=== PATIENT | female | born 1935 | race Caucasian/White ===

== ENCOUNTER 2017-11-25 02:40 | Inpatient (IN) | payer MEDICARE, OTHER ==
[~2017-11-25] VITALS: Ht 167.6 cm; Wt 45.0 kg
[2017-11-25] VITALS (9 sets, daily range): BP systolic 95–210; BP diastolic 51–93; PULSE 62–99; RESP 16–20; TEMP 96.4–98.4; O2SAT 90–97
--- NOTE | 2017-11-25 03:08 | PD ---
HPI Chief Complaint: Fall Time Seen by Provider: 02:45 Travel History International Travel<30 days: No Contact w/Intl Traveler<30days: No Traveled to known affect area: No History of Present Illness HPI Patient from halfway where she apparently fell earlier today they did an x- ray and there was a questionable linear fracture through the femoral neck . Decision was made by Dr holland. family to keep her at the halfway and only to send her to the ER if she was in pain. At night they got her up to go to the bathroom and she had severe pain . Patient comes in the ER with a reading of an x-ray the says most likely right femoral neck fracture .. patient is nonverbal oriented only to place responds only yes or no answers. PFSH Past Medical History Cardiovascular Problems: Yes Respiratory: Yes ?: Not Social History Alcohol Use: No Tobacco Use: No Allergies-Medications (Allergen,Severity, Reaction): Coded Allergies: amoxicillin (Verified Allergy, Unknown, 11/25/17) cefuroxime (Verified Allergy, Unknown, 11/25/17) cilostazol (Verified Allergy, Unknown, 11/25/17) clavulanic acid (Verified Allergy, Unknown, 11/25/17) lisinopril (Verified Allergy, Unknown, 11/25/17) Reported Meds & Prescriptions Reported Meds & Active Scripts Active Hydrocodone-Acetamin 5-325 mg (Hydrocodone/Acetaminophen) 5 Mg-325 Mg Tablet 1 Tab PO Q4H PRN Xarelto (Rivaroxaban) 10 Mg Tab 10 Mg PO Q24H Reported Polyethylene Glycol 3350 Powder (Polyethylene Glycol) 17 Gram Pow 17 Gm PO BID Flovent Hfa 12 GM Inh (Fluticasone Propionate) 110 Mcg/Act Inh 2 Puff INH BID Duoneb (Ipratropium-Albuterol Neb) 0.5-2.5 Mg/3 Ml Neb 1 Nebule INH BID Combivent Respimat Inh (Ipratropium-Albuterol Inh) 20-100 Retirement/Act Aero 2 Puff INH BID Verapamil ER 24 HR (Verapamil HCl) 240 Mg Tab 120 Mg PO HS Thera-M (Multiple Vitamins W/ Minerals) 1 Tab 1 Tab PO DAILT Simvastatin 20 Mg Tab 20 Mg PO DAILY [imdurER] 30 Mg PO DAILY [fortified ice cream] 1 Container PO DAILY Folic Acid 0.8 Mg Tab 800 Mcg PO DAILY Feosol (Ferrous Sulfate) 325 Mg (65 Mg Iron) Tab 1 Tab PO DAILY Aspirin EC (Aspirin) 81 Mg Tabdr 81 Mg PO DAILY Digoxin 0.125 Mg Tab 0.125 Mg PO DAILY Amitriptyline (Amitriptyline HCl) 50 Mg Tab 50 Mg PO HS Review of Systems ROS Limitations: Other: (DEMENTIA) Except as stated in HPI: all other systems reviewed are Neg Physical Exam Narrative GENERAL: Patient's vital signs within normal limits she seems demented but nontoxic in no apparent distress SKIN: Warm and dry. HEAD: Atraumatic. Normocephalic. EYES: Pupils equal and round. No scleral icterus. No injection or drainage. ENT: No nasal bleeding or discharge. Mucous membranes pink and moist. NECK: Trachea midline. No JVD. CARDIOVASCULAR: Regular rate and rhythm. RESPIRATORY: No accessory muscle use. Clear to auscultation. Breath sounds equal bilaterally. GASTROINTESTINAL: Abdomen suprapubic areas distended Kulkarni is placed and 800 cc of clear urine come out. non-tender. Hepatic and splenic margins not palpable. MUSCULOSKELETAL: Extremities pAIN WITH INTERNAL ROTATION OF THE FEMORAL HEAD .No obvious deformities. NEUROLOGICAL: Oriented to person only no obvious focal deficits Data Data Last Documented VS Vital Signs Date Time Temp Pulse Resp B/P (MAP) Pulse Ox O2 Delivery O2 Flow Rate FiO2 11/25/17 02:58 69 17 149/70 (96) 95 Room Air 11/25/17 02:46 98.4 Orders Orders Electrocardiogram (11/25/17 02:53) Complete Blood Count With Diff (11/25/17 02:53) Comprehensive Metabolic Panel (11/25/17 02:53) Troponin I (11/25/17 02:53) Lipase (11/25/17 02:53) Ua Includes Microscopic (11/25/17 02:53) Urinary Catheter Management SIVAKUMAR.Q8H (11/25/17 02:55) Chest, Single Ap (11/25/17 ) Hip, Uni(Ap&Lat) W Ap Pelvis (11/25/17 ) Admit To Inpatient (11/25/17 ) Vital Signs (Adult) Q4H (11/25/17 03:54) Activity Bed Rest (11/25/17 03:54) Channel Business Manager / Telemetry .CONTINUOUS (11/25/17 03:54) Diet Npo (11/25/17 Breakfast) Sodium Chloride 0.9% Flush (Ns Flush) (11/25/17 04:00) Sodium Chloride 0.9% Flush (Ns Flush) (11/25/17 09:00) Basic Metabolic Panel (Bmp) (11/26/17 06:00) Complete Blood Count With Diff (11/26/17 06:00) Pt Request For Service (11/25/17 03:54) Case Management Consult (11/25/17 03:54) Naloxone Inj (Narcan Inj) (11/25/17 04:00) Inpatient Certification (11/25/17 ) Consult Orthopedic (11/25/17 ) Admit Order (Ed Use Only) (11/25/17 03:59) Labs Laboratory Tests Test 11/25/17 03:00 White Blood Count 10.5 TH/MM3 Red Blood Count 3.79 MIL/MM3 Hemoglobin 12.0 GM/DL Hematocrit 34.8 % Mean Corpuscular Volume 91.6 FL Mean Corpuscular Hemoglobin 31.5 PG Mean Corpuscular Hemoglobin Concent 34.4 % Red Cell Distribution Width 14.3 % Platelet Count 154 TH/MM3 Mean Platelet Volume 8.8 FL Neutrophils (%) (Auto) 83.3 % Lymphocytes (%) (Auto) 8.9 % Monocytes (%) (Auto) 7.3 % Eosinophils (%) (Auto) 0.2 % Basophils (%) (Auto) 0.3 % Neutrophils # (Auto) 8.7 TH/MM3 Lymphocytes # (Auto) 0.9 TH/MM3 Monocytes # (Auto) 0.8 TH/MM3 Eosinophils # (Auto) 0.0 TH/MM3 Basophils # (Auto) 0.0 TH/MM3 CBC Comment DIFF FINAL Differential Comment Urine Color LIGHT-YELLOW Urine Turbidity CLEAR Urine pH 7.5 Urine Specific [place] 1.009 Urine Protein NEG mg/dL Urine Glucose (UA) NEG mg/dL Urine Ketones NEG mg/dL Urine Occult Blood NEG Urine Nitrite NEG Urine Bilirubin NEG Urine Urobilinogen LESS THAN 2.0 MG/DL Urine Leukocyte Esterase SMALL Urine WBC 2 /hpf Urine Squamous Epithelial Cells 6 /hpf Microscopic Urinalysis Comment CULT NOT INDICATED Blood Urea Nitrogen 19 MG/DL Creatinine 0.67 MG/DL Random Glucose 90 MG/DL Total Protein 6.4 GM/DL Albumin 3.0 GM/DL Calcium Level 8.1 MG/DL Alkaline Phosphatase 66 U/L Aspartate Amino Transf (AST/SGOT) 22 U/L Alanine Aminotransferase (ALT/SGPT) 46 U/L Total Bilirubin 0.6 MG/DL Sodium Level 137 MEQ/L Potassium Level 3.8 MEQ/L Chloride Level 102 MEQ/L Carbon Dioxide Level 29.3 MEQ/L Anion Gap 6 MEQ/L Estimat Glomerular Filtration Rate 84 ML/MIN Troponin I 0.03 NG/ML Lipase 171 U/L MDM Medical Decision Making Medical Screen Exam Complete: Yes Emergency Medical Condition: Yes Differential Diagnosis Hip contusion versus hip fracture versus osteoporosis versus pathological fracture versus pelvic fracture versus Rami fracture Narrative Course X-ray shows a nondisplaced femoral neck fracture right sided. She will be admitted to medicine, orthopedics to follow in morning for possible pinning Diagnosis Primary Impression: Closed right hip fracture Scripts Hydrocodone/Acetaminophen (Hydrocodone-Acetamin 5-325 mg) 5 Mg-325 Mg Tablet 1 TAB PO Q4H Y for PAIN, #40 TAB Prov: Nelson Carlson MD 11/25/17 Rivaroxaban (Xarelto) 10 Mg Tab 10 MG PO Q24H for Prevent Blood Clot, #25 TAB Prov: Nelson Carlson MD 11/25/17 Tom James MD Nov 25, 2017 03:08
[2017-11-25 03:10] LABS: AUTOMATED NEUTROPHIL # 8.7 TH/MM3 (1.8-7.7); BASOPHIL % 0.3 % (0.0-2.0); EOSINOPHIL % 0.2 % (0.0-4.0); HEMATOCRIT 34.8 % (35.0-46.0); LYMPH % 8.9 % (9.0-44.0); LYMPHOCYTE # 0.9 TH/MM3 (1.0-4.8); MEAN CELL VOLUME 91.6 FL (80.0-100.0); MEAN CORPUSCULAR HEMOGLOBIN 31.5 PG (27.0-34.0); MEAN CORPUSCULAR HGB CONC 34.4 % (32.0-36.0); MEAN PLATELET VOLUME 8.8 FL (7.0-11.0); MONO % 7.3 % (0.0-8.0); MONOCYTE # 0.8 TH/MM3 (0-0.9); NEUT % 83.3 % (16.0-70.0); PLATELET COUNT 154 TH/MM3 (150-450); RED BLOOD COUNT 3.79 MIL/MM3 (4.00-5.30); RED CELL DISTRIBUTION WIDTH 14.3 % (11.6-17.2); WHITE BLOOD COUNT 10.5 TH/MM3 (4.0-11.0)
[2017-11-25 03:18] LABS: BILIRUBIN, URINE NEG (NEG); BLOOD, URINE NEG (NEG); GLUCOSE,URINE NEG (NEG); KETONE, URINE NEG (NEG); NITRITE,URINE NEG (NEG); PH, URINE 7.5 (5.0-8.5); SQUAMOUS EPITHELIAL CELL URINE 6 /hpf (0-5); URINE COLOR LIGHT-YELLOW (YELLW/STRAW); URINE LEUKOCYTE ESTERASE SMALL (NEG)
--- NOTE | 2017-11-25 03:28 | RADRPT ---
EXAM DATE/TIME: 11/25/2017 03:06 [facility] COMPARISON: No previous studies available for comparison. INDICATIONS : Short of breath post fall. MEDICAL HISTORY : None. SURGICAL HISTORY : None. ENCOUNTER: Initial ACUITY: 1 day PAIN SCORE: Non-responsive. LOCATION: Bilateral chest FINDINGS: Cardiomegaly and aortic calcification. Degenerative changes of the spine. Lungs are clear with hyperi nflation. CONCLUSION: No acute disease. Hernandez Bryson MD on November 25, 2017 at 3:26 Board Certified Radiologist. This report was verified electronically.
--- NOTE | 2017-11-25 03:33 | RADRPT ---
EXAM DATE/TIME: 11/25/2017 03:06 [facility] COMPARISON: No previous studies available for comparison. INDICATIONS : Right hip pain post fall. MEDICAL HISTORY : None. SURGICAL HISTORY : None. ENCOUNTER: Initial ACUITY: 1 day PAIN SCORE: 10/10 LOCATION: Right hip. FINDINGS: Femoral artery and iliac artery calcifications are noted as well as atherosclerotic calcification of the distal aorta. Numerous surgical clips overlie the pelvis and left lower quadrant. There is a mild ly displaced fracture of the subcapital femoral neck on the right. Examination of the right hip was performed with AP Pelvis. The primary and secondary trabecular karen rolando of the femoral neck is intact. The hip joint is of normal width without significant sclerosis or bony hypertrophy. The acetabulum is grossly intact. CONCLUSION: Right femoral neck fracture. Hernandez Bryson MD on November 25, 2017 at 3:31 Board Certified Radiologist. This report was verified electronically.
[2017-11-25 04:00] LABS: ALT (GPT) 46 U/L (10-53); AST (GOT) 22 U/L (15-37); BICARBONATE 29.3 MEQ/L (21.0-32.0); BLOOD UREA NITROGEN 19 MG/DL (7-18); CALCIUM 8.1 MG/DL (8.5-10.1); CHLORIDE 102 MEQ/L (98-107); CREATININE 0.67 MG/DL (0.50-1.00); GLOMERULAR FILTRATION RATE 84 ML/MIN (>89); GLUCOSE,RANDOM 90 MG/DL (74-106); SODIUM (NA) 137 MEQ/L (136-145)
[2017-11-25] MEDS ORDERED: SODIUM CHLORIDE 0.9% FLUSH 10 ML FLUSH IV FLUSH PRN (04:00)
[2017-11-25] MEDS ORDERED: NALOXONE HCL 0.4 MG/ML AMP IV PUSH PRN (04:00)
[2017-11-25 04:04] LABS: ALKALINE PHOSPHATASE 66 U/L (45-117); TOTAL BILIRUBIN ADULT 0.6 MG/DL (0.2-1.0); TOTAL PROTEIN 6.4 GM/DL (6.4-8.2); TROPONIN I 0.03 NG/ML (0.02-0.05)
[2017-11-25] MEDS ORDERED: FERR200T PO (04:20)
[2017-11-25] MEDS ORDERED: IPRAAER INH (04:20)
[2017-11-25] MEDS ORDERED: FLUTI110I INH (04:20)
[2017-11-25] MEDS ORDERED: IPRASOL INH (04:20)
[2017-11-25] MEDS ORDERED: DIGO0.12 PO (04:20)
[2017-11-25] MEDS ORDERED: THERTAB17 PO (04:20)
[2017-11-25] MEDS ORDERED: VERA1TAB17 PO (04:20)
[2017-11-25] MEDS ORDERED: [UNRECOGNIZED DRUG - OTHER] PO (04:20)
[2017-11-25] MEDS ORDERED: AMIT50TA3 PO (04:20)
[2017-11-25] MEDS ORDERED: ASPI81TA23 PO (04:20)
[2017-11-25] MEDS ORDERED: SIMV20TA PO (04:20)
[2017-11-25] MEDS ORDERED: POLY17S PO (04:20)
[2017-11-25] MEDS ORDERED: [UNRECOGNIZED DRUG - OTHER] PO (04:20)
[2017-11-25] MEDS ORDERED: FOLI800T PO (04:20)
[2017-11-25] MEDS ORDERED: MORPHINE SULFATE 2 MG/ML INJ IV PUSH PRN (05:30)
[2017-11-25] MEDS ORDERED: RESP: ALBUTEROL 2.5 MG/IPRATROPIUM 0.5 MG NEB (PRN) NEB (05:30)
--- NOTE | 2017-11-25 05:31 | HHI.HP ---
[facility] Unknown Admission Diagnosis hip fracture Diagnoses: Chief Complaint: right hip pain Travel History International Travel<30 Days: No Contact w/Intl Traveler <30 Da: No Traveled to Known Affected Are: No History of Present Illness 82 y/o female with a history of dementia, htn, hld, irregular heart beat, and copd was brought in from her nursing facility after having a fall. Patient is a poor historian and only oriented to self. She does not remember falling but is able to tell me she is in pain and states her right hip. She can not tell me the pain scale or any other details regarding the pain. She does deny any chest pain, sob, or head ache. She does not know if she hit her head when she fell. She is a DNR, yellow form on chart Review of Systems Except as stated in HPI: all other systems reviewed are Neg Past Family Social History Past Medical History HTN HLD Iron deficiency anemia depression COPD Irregular heart beat Past Surgical History Patient is unable to provide surgical history Reported Medications Reported Meds & Active Scripts Active Reported Polyethylene Glycol 3350 Powder (Polyethylene Glycol) 17 Gram Pow 17 Gm PO BID Flovent Hfa 12 GM Inh (Fluticasone Propionate) 110 Mcg/Act Inh 2 Puff INH BID Duoneb (Ipratropium-Albuterol Neb) 0.5-2.5 Mg/3 Ml Neb 1 Nebule INH BID Combivent Respimat Inh (Ipratropium-Albuterol Inh) 20-100 Longterm/Act Aero 2 Puff INH BID Verapamil ER 24 HR (Verapamil HCl) 240 Mg Tab 120 Mg PO HS Thera-M (Multiple Vitamins W/ Minerals) 1 Tab 1 Tab PO DAILT Simvastatin 20 Mg Tab 20 Mg PO DAILY [imdurER] 30 Mg PO DAILY [fortified ice cream] 1 Container PO DAILY Folic Acid 0.8 Mg Tab 800 Mcg PO DAILY Feosol (Ferrous Sulfate) 325 Mg (65 Mg Iron) Tab 1 Tab PO DAILY Aspirin EC (Aspirin) 81 Mg Tabdr 81 Mg PO DAILY Digoxin 0.125 Mg Tab 0.125 Mg PO DAILY Amitriptyline (Amitriptyline HCl) 50 Mg Tab 50 Mg PO HS Allergies: Coded Allergies: amoxicillin (Verified Allergy, Unknown, 11/25/17) cefuroxime (Verified Allergy, Unknown, 11/25/17) cilostazol (Verified Allergy, Unknown, 11/25/17) clavulanic acid (Verified Allergy, Unknown, 11/25/17) lisinopril (Verified Allergy, Unknown, 11/25/17) Active Ordered Medications Current Medications Medications (Trade) Dose Ordered Sig/[place] Route Start Time Stop Time Status Last Admin (NS Flush) 2 ml UNSCH PRN IV FLUSH 11/25/17 04:00 (NS Flush) 2 ml BID IV FLUSH 11/25/17 09:00 (Narcan Inj) 0.4 mg UNSCH PRN IV PUSH 11/25/17 04:00 Family History patient is unable to provide surgical history Social History Patient denies any tobacco, alcohol or illicit drug use Physical Exam Vital Signs Vital Signs Date Time Temp Pulse Resp B/P (MAP) Pulse Ox O2 Delivery O2 Flow Rate FiO2 11/25/17 02:58 69 17 149/70 (96) 95 Room Air 11/25/17 02:52 16 94 Room Air 11/25/17 02:46 98.4 93 20 210/93 (132) 94 Physical Exam GENERAL: This is a well-nourished, well-developed patient, in no apparent distress. SKIN: No rashes, ecchymoses or lesions. Cool and dry. HEAD: Atraumatic. Normocephalic. EYES: Pupils equal round and reactive. Extraocular motions intact. ENT: Nose without bleeding, purulent drainage or septal hematoma. Airway patent. NECK: Trachea midline. No JVD or lymphadenopathy. Supple, nontender, no meningeal signs. CARDIOVASCULAR: Regular rate and rhythm without murmurs, gallops, or rubs. RESPIRATORY: Diminished bases. No wheezes, rales, or rhonchi. GASTROINTESTINAL: Abdomen soft, non-tender, nondistended. MUSCULOSKELETAL: Extremities without clubbing, cyanosis, or edema. Right hip tenderness. No calf tenderness. NEUROLOGICAL: Awake and alert x 1. Motor and sensory grossly within normal limits. Normal speech. Laboratory Laboratory Tests Test 11/25/17 03:00 White Blood Count 10.5 Red Blood Count 3.79 Hemoglobin 12.0 Hematocrit 34.8 Mean Corpuscular Volume 91.6 Mean Corpuscular Hemoglobin 31.5 Mean Corpuscular Hemoglobin Concent 34.4 Red Cell Distribution Width 14.3 Platelet Count 154 Mean Platelet Volume 8.8 Neutrophils (%) (Auto) 83.3 Lymphocytes (%) (Auto) 8.9 Monocytes (%) (Auto) 7.3 Eosinophils (%) (Auto) 0.2 Basophils (%) (Auto) 0.3 Neutrophils # (Auto) 8.7 Lymphocytes # (Auto) 0.9 Monocytes # (Auto) 0.8 Eosinophils # (Auto) 0.0 Basophils # (Auto) 0.0 CBC Comment DIFF FINAL Differential Comment Urine Color LIGHT-YELLOW Urine Turbidity CLEAR Urine pH 7.5 Urine Specific [place] 1.009 Urine Protein NEG Urine Glucose (UA) NEG Urine Ketones NEG Urine Occult Blood NEG Urine Nitrite NEG Urine Bilirubin NEG Urine Urobilinogen LESS THAN 2.0 Urine Leukocyte Esterase SMALL Urine WBC 2 Urine Squamous Epithelial Cells 6 Microscopic Urinalysis Comment CULT NOT INDICATED Blood Urea Nitrogen 19 Creatinine 0.67 Random Glucose 90 Total Protein 6.4 Albumin 3.0 Calcium Level 8.1 Alkaline Phosphatase 66 Aspartate Amino Transf (AST/SGOT) 22 Alanine Aminotransferase (ALT/SGPT) 46 Total Bilirubin 0.6 Sodium Level 137 Potassium Level 3.8 Chloride Level 102 Carbon Dioxide Level 29.3 Anion Gap 6 Estimat Glomerular Filtration Rate 84 Troponin I 0.03 Lipase 171 Result Diagram: 11/25/17 0300 11/25/17 0300 Imaging Last Impressions Hip and Pelvis X-Ray 11/25/17 0000 Signed Impressions: Service Date/Time: November 03:06 - CONCLUSION: Right femoral neck fracture. Hernandez Bryson MD Chest X-Ray 11/25/17 0000 Signed Impressions: Service Date/Time: November 03:06 - CONCLUSION: No acute disease. Hernandez Bryson MD Caprini VTE Risk Assessment Scottrini VTE Risk Assessment: No/Low Risk (score <= 1) Caprini Risk Assessment Model Point Value = 1 Point Value = 2 Point Value = 3 Point Value = 5 Age 41-60 Minor surgery BMI > 25 kg/m2 Swollen legs Varicose veins or History of unexplained or recurrent spontaneous Oral contraceptives or hormone replacement Sepsis (< 1 month) Serious lung disease, including pneumonia (< 1 month) Abnormal pulmonary function Acute myocardial infarction Congestive heart failure (< 1 month) History of inflammatory bowel disease Medical patient at bed rest Age 61-74 Arthroscopic surgery Major open surgery (> 45 min) Laparoscopic surgery (> 45 min) Malignancy Confined to bed (> 72 hours) Immobilizing plaster cast Central venous access Age >= 75 History of VTE Family history of VTE Factor V Leiden Prothrombin 34140T Lupus anticoagulant Anticardiolipin antibodies Elevated serum homocysteine Heparin-induced thrombocytopenia Other congenital or acquired thrombophilia Stroke (< 1 month) Elective arthroplasty Hip, pelvis, or leg fracture Acute spinal cord injury (< 1 month) Prophylaxis Regimen Total Risk Factor Score Risk Level Prophylaxis Regimen 0-1 Low Early ambulation 2 Moderate Order ONE of the following: *Sequential Compression Device (SCD) *Heparin 5000 units SQ BID 3-4 Higher Order ONE of the following medications: *Heparin 5000 units SQ TID *Enoxaparin/Lovenox 40 mg SQ daily (WT < 150 kg, CrCl > 30 mL/min) *Enoxaparin/Lovenox 30 mg SQ daily (WT < 150 kg, CrCl > 10-29 mL/min) *Enoxaparin/Lovenox 30 mg SQ BID (WT < 150 kg, CrCl > 30 mL/min) AND/OR *Sequential Compression Device (SCD) 5 or more Highest Order ONE of the following medications: *Heparin 5000 units SQ TID (Preferred with Epidurals) *Enoxaparin/Lovenox 40 mg SQ daily (WT < 150 kg, CrCl > 30 mL/min) *Enoxaparin/Lovenox 30 mg SQ daily (WT < 150 kg, CrCl > 10-29 mL/min) *Enoxaparin/Lovenox 30 mg SQ BID (WT < 150 kg, CrCl > 30 mL/min) AND *Sequential Compression Device (SCD) Assessment and Plan Problem List: (1) Closed right hip fracture ICD Code: S72.001A - Fracture of unspecified part of neck of right femur, initial encounter for closed fracture Status: Acute (2) HTN (hypertension) ICD Code: I10 - Essential (primary) hypertension Status: Chronic (3) COPD (chronic obstructive pulmonary disease) ICD Code: J44.9 - Chronic obstructive pulmonary disease, unspecified Status: Chronic Assessment and Plan 82 y/o female with a history of dementia, depression, htn, hld, irregular heart beat, and copd was brought in from her nursing facility after having a fall. Right hip fracture, s/p fall Hip x ray reviewed and shows a right femoral neck fracture. -Consult orthopedics -Pain management with IV morphine -NPO -IVF for hydration HTN, chronic -Cont home medications, monitor vitals COPD, chronic -Duonebs brenton and prn -IS DVT prophylaxis: SCDs Code Status DNR Discussed Condition With Patient and RN Physician Certification 2 Midnight Certification Type: Admission for Inpatient Services Order for Inpatient Services The services are ordered in accordance with Medicare regulations or non- Medicare payer requirements, as applicable. In the case of services not specified as inpatient-only, they are appropriately provided as inpatient services in accordance with the 2-midnight benchmark. Estimated LOS (days): 2 days is the estimated time the patient will need to remain in the hospital, assuming treatment plan goals are met and no additional complications. Post-Hospital Plan: SNF Problem Qualifiers (1) Closed right hip fracture: Qualified Codes: S72.001A - Fracture of unspecified part of neck of right femur , initial encounter for closed fracture (2) HTN (hypertension): Qualified Codes: I10 - Essential (primary) hypertension (3) COPD (chronic obstructive pulmonary disease): Qualified Codes: J44.9 - Chronic obstructive pulmonary disease, unspecified Jess Bowles Nov 25, 2017 05:31
[2017-11-25] MEDS: SODIUM CHLOR 0.9% 1000 ML INJ 1,000 ML IV SCH (05:33)
[2017-11-25] MEDS: RESP: ALBUTEROL 2.5 MG/IPRATROPIUM 0.5 MG NEB (SCH) NEB ×3 (08:03→19:23)
[2017-11-25] MEDS: SODIUM CHLORIDE 0.9% FLUSH 10 ML FLUSH IV FLUSH SCH ×2 (09:00→21:00)
[2017-11-25] MEDS: DIGOXIN 0.125 MG TAB PO SCH (09:00)
[2017-11-25] MEDS: FERROUS SULFATE 325 MG (65 MG ELEMENTAL IRON) TAB PO SCH (09:00)
[2017-11-25] MEDS: PRAVASTATIN SOD 40 MG TAB PO SCH (09:00)
--- NOTE | 2017-11-25 09:20 | PD.ORT.PN ---
Subjective Subjective Remarks Seen in the emergency room. Right hip fracture Objective Vitals Vital Signs Date Time Temp Pulse Resp B/P (MAP) Pulse Ox O2 Delivery O2 Flow Rate FiO2 11/25/17 08:05 96 21 11/25/17 07:52 88 16 162/63 (96) 96 Room Air 11/25/17 05:15 98.4 79 18 158/74 (102) 97 Room Air 11/25/17 02:58 69 17 149/70 (96) 95 Room Air 11/25/17 02:52 16 94 Room Air 11/25/17 02:46 98.4 93 20 210/93 (132) 94 I/O 11/24/17 11/24/17 11/24/17 11/25/17 11/25/17 11/25/17 07:00 15:00 23:00 07:00 15:00 23:00 Output Total 1350 ml Balance -1350 ml Output Urine Total 1350 ml Result Diagram: 11/25/17 0300 11/25/17 0300 Imaging Last 24 hours Impressions Hip and Pelvis X-Ray 11/25/17 0000 Signed Impressions: Service Date/Time: November 03:06 - CONCLUSION: Right femoral neck fracture. Hernandez Bryson MD Chest X-Ray 11/25/17 0000 Signed Impressions: Service Date/Time: November 03:06 - CONCLUSION: No acute disease. Hernandez Bryson MD Assessment & Plan Assessment and Plan Right femoral neck fracture, displaced. PLAN: Open treatment right hip with bipolar hip replacement. Full consent with the patient. Coags pending. Surgery today Nelson Carlson MD Nov 25, 2017 09:20
[2017-11-25] MEDS ORDERED: hydrALAZINE HCL 10 MG TAB PO PRN (10:15)
[2017-11-25 11:33] LABS: PROTHROMBIN TIME - PATIENT 10.1 SEC (9.8-11.6)
[2017-11-25] MEDS ORDERED: ONDANSETRON HCL 4 MG/2 ML VIAL IV ONE (12:00)
[2017-11-25] MEDS ORDERED: PROPOFOL 200 MG/20 ML AMP IV ONE (12:00)
[2017-11-25] MEDS ORDERED: SODIUM CHLORIDE 0.9% 20 ML VIAL IV ONE (12:00)
[2017-11-25] MEDS ORDERED: LACTATED RINGER'S 1000 ML INJ 1,000 ML IV ONE (12:00)
[2017-11-25] MEDS ORDERED: LIDOCAINE HCL 1% PF 5 ML SYRINGE OTHER ONE (12:00)
[2017-11-25] MEDS ORDERED: GLYCOPYRROLATE 1 MG/5 ML SYRINGE IV PUSH ONE (12:00)
[2017-11-25] MEDS ORDERED: KETOROLAC TROMETHAMINE 30 MG/ML (IVP) VIAL IV PUSH ONE (12:00)
[2017-11-25] MEDS ORDERED: ePHEDrine/NS 25 MG/5 ML SYRINGE IV ONE (12:00)
[2017-11-25] MEDS ORDERED: PHENYLEPH/NS 1000 MCG/10 ML SYR IV ONE (12:00)
[2017-11-25] MEDS ORDERED: ROCURONIUM INJ 50 MG/5 ML SYRINGE IV PUSH ONE (12:00)
[2017-11-25] MEDS ORDERED: NEOSTIGMINE 5 MG/5 ML SYRINGE IV PUSH ONE (12:00)
[2017-11-25] MEDS ORDERED: GENTAMICIN SULFATE 80 MG/2 ML VIAL ONE (14:00)
[2017-11-25] MEDS ORDERED: ceFAZolin 2 GM PREMIX 50 ML ONE (14:26)
[2017-11-25] MEDS ORDERED: VANCOMYCIN HCL 1000 MG VIAL ONE (14:26)
[2017-11-25] MEDS ORDERED: CLINDAMYCIN PHOS 600 MG/4 ML VIAL ONE (14:33)
[2017-11-25] MEDS ORDERED: CHLORHEXIDINE GLUCONATE 2 % 1 PACK (2 CLOTHS) TOPICAL PRN (14:45)
[2017-11-25] MEDS ORDERED: METOPROLOL TARTRATE 25 MG TAB PO PRN (14:45)
[2017-11-25] MEDS ORDERED: LACTATED RINGER'S 1000 ML IV PRN (14:45)
[2017-11-25] MEDS ORDERED: SODIUM CHLORID 0.9% 500 ML IV PRN (14:45)
[2017-11-25] MEDS ORDERED: POVIDONE IODINE 5% (ANTISEPSIS KIT) 4 APPLICATIONS EACH NARE PRN (14:45)
--- NOTE | 2017-11-25 15:07 | EKG ---
Date Performed: 11/25/2017 Time Performed: 03:28:15 PTAGE: 82 years EKG: Sinus rhythm WITH SHORT DE INTERVAL PROBABLE INFERIOR MYOCARDIAL INFARCTION ABNORMAL ECG NO PREVIOUS TRACING Clinical correlation is recommended. DOCTOR: Francesco Mcdonald Interpretating Date/Time 11/25/2017 15:05:12
--- NOTE | 2017-11-25 15:43 | PD.CONS ---
HPI Service Orthopedic Surgeons Consult Requested By Dr. Saleem Reason for Consult Fracture of the right femoral neck, displaced Primary Care Physician Jabari Shi, DO Admission Diagnosis hip fracture Diagnoses: (1) Closed right hip fracture (2) HTN (hypertension) (3) COPD (chronic obstructive pulmonary disease) Chief Complaint: Right hip pain and inability to ambulate History of Present Illness This patient is an 82-year-old female who resides a local [facility]. Apparently she fell and had severe pain in the region of her right hip. She is unable to invert. Pain was poorly controlled. She presented to the emergency room was evaluated. X-rays showed evidence of a completely displaced right femoral neck fracture. I had been asked to see her in consultation regarding the same. Review of Systems Constitutional: DENIES: Diaphoretic episodes, Fatigue, Fever, Weight gain, Weight loss, Chills, Dizziness, Change in appetite, Night Sweats Endocrine: DENIES: Abnorml menstrual pattern, Heat/cold intolerance, Polydipsia , Polyuria, Polyphagia Eyes: DENIES: Blurred vision, Diplopia, Eye inflammation, Eye pain, Vision loss , Photosensitivity, Double Vision Ears, nose, mouth, throat: DENIES: Tinnitus, Hearing loss, Vertigo, Nasal discharge, Oral lesions, Throat pain, Hoarseness, Ear Pain, Running Nose, Epistaxis, Sinus Pain, Toothache, Odynophagia Respiratory: DENIES: Apneas, Cough, Snoring, Wheezing, Hemoptysis, Sputum production, Shortness of breath Cardiovascular: DENIES: Chest pain, Palpitations, Syncope, Dyspnea on Exertion , PND, Lower Extremity Edema, Orthopnea, Claudication Gastrointestinal: DENIES: Abdominal pain, Black stools, Bloody stools, Constipation, Diarrhea, Nausea, Vomiting, Difficulty Swallowing, Anorexia Genitourinary: DENIES: Abnormal vaginal bleeding, Dysmenorrhea, Dyspareunia, Sexual dysfunction, Urinary frequency, Urinary incontinence, Urgency, Hematuria , Dysuria, Nocturia, Vaginal discharge Musculoskeletal: COMPLAINS OF: Joint pain, Joint Swelling Integumentary: DENIES: Abnormal pigmentation, Pruritus, Rash, Nail changes, Breast masses, Breast skin changes, Nipple discharge Hematologic/lymphatic: DENIES: Bruising, Lymphadenopathy Immunologic/allergic: DENIES: Eczema, Urticaria Neurologic: DENIES: Abnormal gait, Headache, Localized weakness, Paresthesias, Seizures, Speech Problems, Tremor, Poor Balance Psychiatric: COMPLAINS OF: Confusion Past Family Social History Past Medical History HTN HLD Iron deficiency anemia depression COPD Irregular heart beat Past Surgical History Patient is unable to provide surgical history Allergies: Coded Allergies: amoxicillin (Verified Allergy, Unknown, 11/25/17) cefuroxime (Verified Allergy, Unknown, 11/25/17) cilostazol (Verified Allergy, Unknown, 11/25/17) clavulanic acid (Verified Allergy, Unknown, 11/25/17) lisinopril (Verified Allergy, Unknown, 11/25/17) Active Ordered Medications Current Medications Medications (Trade) Dose Ordered Sig/[place] Route Start Time Stop Time Status Last Admin (NS Flush) 2 ml UNSCH PRN IV FLUSH 11/25/17 04:00 (NS Flush) 2 ml BID IV FLUSH 11/25/17 09:00 11/25/17 09:00 (Narcan Inj) 0.4 mg UNSCH PRN IV PUSH 11/25/17 04:00 (Elavil) 50 mg HS PO 11/25/17 21:00 (Lanoxin) 0.125 mg DAILY PO 11/25/17 09:00 11/25/17 09:00 (Ferrous Sulfate) 325 mg DAILY PO 11/25/17 09:00 11/25/17 09:00 (Isoptin Sr) 120 mg HS PO 11/25/17 21:00 (Pravachol) 40 mg DAILY PO 11/25/17 09:00 11/25/17 09:00 (Duoneb Neb) 1 ampule Q6HR WHILE AWAKE NEB NEB 11/25/17 08:00 11/25/17 08:03 (Duoneb Neb) 1 ampule Q2HR NEB PRN NEB 11/25/17 05:30 (Morphine Inj) 2 mg Q4H PRN IV PUSH 11/25/17 05:30 11/25/17 11:53 Sodium Chloride 1,000 ml @ 42 mls/hr [id number] IV 11/25/17 05:30 11/25/17 05:33 (Apresoline) 10 mg Q6HR PRN PO 11/25/17 10:15 Lactated Ringer's 1,000 ml @ 30 mls/hr Q24H PRN IV 11/25/17 14:45 11/28/17 14:44 Sodium Chloride 500 ml @ 30 mls/hr [id number] PRN IV 11/25/17 14:45 11/28/17 14:44 (Lopressor) 25 mg [employer]NAGER [employer] INFORMATION PRN PO 11/25/17 14:45 11/28/17 14:44 (Betadine 5% Antisepsis Kit) 1 applic [employer] PRN EACH NARE 11/25/17 14:45 11/28/17 14:44 (Chlorhexidine 2% Cloth) 3 pack [employer] PRN TOPICAL 11/25/17 14:45 11/28/17 14:44 Reported Meds & Active Scripts Active Reported Polyethylene Glycol 3350 Powder (Polyethylene Glycol) 17 Gram Pow 17 Gm PO BID Flovent Hfa 12 GM Inh (Fluticasone Propionate) 110 Mcg/Act Inh 2 Puff INH BID Duoneb (Ipratropium-Albuterol Neb) 0.5-2.5 Mg/3 Ml Neb 1 Nebule INH BID Combivent Respimat Inh (Ipratropium-Albuterol Inh) 20-100 Residential/Act Aero 2 Puff INH BID Verapamil ER 24 HR (Verapamil HCl) 240 Mg Tab 120 Mg PO HS Thera-M (Multiple Vitamins W/ Minerals) 1 Tab 1 Tab PO DAILT Simvastatin 20 Mg Tab 20 Mg PO DAILY [imdurER] 30 Mg PO DAILY [fortified ice cream] 1 Container PO DAILY Folic Acid 0.8 Mg Tab 800 Mcg PO DAILY Feosol (Ferrous Sulfate) 325 Mg (65 Mg Iron) Tab 1 Tab PO DAILY Aspirin EC (Aspirin) 81 Mg Tabdr 81 Mg PO DAILY Digoxin 0.125 Mg Tab 0.125 Mg PO DAILY Amitriptyline (Amitriptyline HCl) 50 Mg Tab 50 Mg PO HS Family History patient is unable to provide surgical history Social History Patient denies any tobacco, alcohol or illicit drug use Physical Exam Vital Signs Vital Signs Date Time Temp Pulse Resp B/P (MAP) Pulse Ox O2 Delivery O2 Flow Rate FiO2 11/25/17 13:21 97.8 99 17 149/71 (97) 92 11/25/17 08:05 96 21 11/25/17 07:52 88 16 162/63 (96) 96 Room Air 11/25/17 05:15 98.4 79 18 158/74 (102) 97 Room Air 11/25/17 02:58 69 17 149/70 (96) 95 Room Air 11/25/17 02:52 16 94 Room Air 11/25/17 02:46 98.4 93 20 210/93 (132) 94 Physical Exam HEENT: Normocephalic atraumatic pupils equal round reactive. NECK: Supple. No abnormal masses. Full range of motion. CHEST: Clear to auscultation with no rales or rhonchi's or wheezes. HEART: Regular rate and rhythm. No murmurs. ABDOMEN: Soft, nontender, no masses. Normal active bowel sounds. GENITOURINARY: Deferred. MUSCULOSKELETAL: Right lower extremity shows external rotation. Swelling and tenderness around the region of the hip is seen. Any range of motion is very painful. Facet appears 1+. Sensation appears normal. She wiggles her toes. No abnormal swelling. No calf tenderness. Laboratory Laboratory Tests Test 11/25/17 03:00 11/25/17 11:00 White Blood Count 10.5 Red Blood Count 3.79 Hemoglobin 12.0 Hematocrit 34.8 Mean Corpuscular Volume 91.6 Mean Corpuscular Hemoglobin 31.5 Mean Corpuscular Hemoglobin Concent 34.4 Red Cell Distribution Width 14.3 Platelet Count 154 Mean Platelet Volume 8.8 Neutrophils (%) (Auto) 83.3 Lymphocytes (%) (Auto) 8.9 Monocytes (%) (Auto) 7.3 Eosinophils (%) (Auto) 0.2 Basophils (%) (Auto) 0.3 Neutrophils # (Auto) 8.7 Lymphocytes # (Auto) 0.9 Monocytes # (Auto) 0.8 Eosinophils # (Auto) 0.0 Basophils # (Auto) 0.0 CBC Comment DIFF FINAL Differential Comment Urine Color LIGHT-YELLOW Urine Turbidity CLEAR Urine pH 7.5 Urine Specific [place] 1.009 Urine Protein NEG Urine Glucose (UA) NEG Urine Ketones NEG Urine Occult Blood NEG Urine Nitrite NEG Urine Bilirubin NEG Urine Urobilinogen LESS THAN 2.0 Urine Leukocyte Esterase SMALL Urine WBC 2 Urine Squamous Epithelial Cells 6 Microscopic Urinalysis Comment CULT NOT INDICATED Blood Urea Nitrogen 19 Creatinine 0.67 Random Glucose 90 Total Protein 6.4 Albumin 3.0 Calcium Level 8.1 Alkaline Phosphatase 66 Aspartate Amino Transf (AST/SGOT) 22 Alanine Aminotransferase (ALT/SGPT) 46 Total Bilirubin 0.6 Sodium Level 137 Potassium Level 3.8 Chloride Level 102 Carbon Dioxide Level 29.3 Anion Gap 6 Estimat Glomerular Filtration Rate 84 Troponin I 0.03 Lipase 171 Prothrombin Time 10.1 Prothromb Time International Ratio 1.0 Activated Partial Thromboplast Time 24.3 Result Diagram: 11/25/17 0300 11/25/17 0300 Imaging Review of x-rays and review the radiologist crepitation shows evidence of a displaced right subcapital femoral neck fracture. Assessment & Plan Assessment and Plan Right femoral neck fracture, displaced. PLAN: Open treatment right hip with bipolar hip replacement. Full consent with the patient. Case discussed with her medical provider, Dr. Saleem. Surgery today if arrangements can be made Nelson Carlson MD Nov 25, 2017 15:43
--- NOTE | 2017-11-25 15:48 | PD.OP ---
cc: Nelson Carlson MD Operative Report Date of Surgery: Nov 25, 2017 Preoperative Diagnosis: Right femoral neck fracture, subcapital, displaced Postoperative Diagnosis: Same Procedure: Right hip bipolar replacement arthroplasty Anesthesia: Gen. Surgeon: Nelson Carlson Bottom Sprayer(s): CAMILLE Ramires Operation and Findings: EBL: 150 cc INDICATION: The patient is an 82-year-old [facility] patient who fell sustaining a completely displaced right femoral neck fracture. She presents for surgical treatment. NOTE: Anabelle Ramires PA-C was present for the entire surgical procedure as my carpenter assistant. In my medical opinion her skill and care was necessary for the proper management of this patient. COMPONENTS: COMPANY: [employer] CUP: Bipolar, 45 mm STEM: Size size 4, cemented, basic fracture repair stem HEAD: 28 mm, + +5 neck length, 09/23 taper PROCEDURE: This patient was brought to the operating room and anesthetized in the supine position and positioned on the routine table in the clean air suite. The patient was then rolled to a right side up lateral position and held with a Biomet hip positioner. The right hip and leg was scrubbed with alcohol followed by Hibiclens followed by chloro prep and draped sterilely. A timeout was done and antibiotics were given within a routine time window. A 4 inch incision was made starting along the posterior one third of the greater trochanter. The iliotibial band was opened in line with the incision. The Charnley retractors were positioned. The posterior capsule and external rotators were taken down together in a sleeve. The fracture was exposed. The head was removed. The neck was cut at the right location. The acetabulum was inspected. All loose bone fragments were removed. Retractors were positioned allowing good visualization of the proximal femur. A box osteotome was utilized followed by progressive broaching for the stem. This was progressively broached until the final size stem.. A trial reduction showed adequate fit with the final bipolar head and neck length. Stability was excellent. Offset was satisfactory. Leg length was reestablished. At 90 of flexion it was stable to 70 of internal rotation. The hip could not be subluxed anteriorly. The canal was irrigated copiously. Hemostasis was controlled. The canal was plugged with a cement restrictor. On the back table 2 packs methyl fact that were mixed. They were injected and pressurized. The final stem was inserted. The cement was allowed harden. The final head and bipolar component was assembled and impacted. The hip was reduced and stability, offset and leg length was as previously noted. The posterior capsule and external rotators were repaired through bone with interrupted #2 Tycron sutures. The piriformis muscle was repaired with the same. The iliotibial band with interrupted #1 Vicryl sutures. Subcutaneous tissue was approximated with 2-0 Vicryl suture and skin with running intradermal 3-0 Vicryl followed by Steri-Strips and benzoin. A sterile dressing was applied.. The sponge count needle counts and instrument counts were all correct. The patient was awakened and taken to the recovery room in satisfactory condition FINDINGS: There was evidence of a completely displaced femoral neck fracture. Bone quality was satisfactory. There was no complication that was appreciated. Nelson Carlson MD Nov 25, 2017 15:47
[2017-11-25] MEDS ORDERED: MISCELLANEOUS PHARMACY INFORMATION XX ONE (16:00)
[2017-11-25] MEDS ORDERED: ALUMINUM/MAGNESIUM/SIMETH 30 ML CUP PO PRN (16:00)
[2017-11-25] MEDS ORDERED: Post-op Orders (for Pharmacy) XX ONE (16:00)
[2017-11-25] MEDS ORDERED: MORPHINE SULFATE 8 MG/ML INJ IM PRN (16:00)
[2017-11-25] MEDS ORDERED: ACETAMINOPHEN/HYDROcodone 325 MG/5 MG TAB PO PRN (16:00)
[2017-11-25] MEDS ORDERED: ONDANSETRON HCL 4 MG/2 ML VIAL IVP PRN (16:00)
[2017-11-25] MEDS ORDERED: MISCELLANEOUS NURSING INFORMATION XX PRN (16:00)
[2017-11-25] MEDS ORDERED: TEMAZEPAM 15 MG CAP PO PRN (16:00)
[2017-11-25] MEDS ORDERED: XARE10TA PO (16:08)
[2017-11-25] MEDS ORDERED: HYDR-3516 PO (16:09)
[2017-11-25] MEDS ORDERED: *RESP: ALBUTEROL 2.5 MG/3 ML NEB (PRN) PERIprocedural Use ONLY NEB ONE (16:21)
--- NOTE | 2017-11-25 17:05 | RADRPT ---
EXAM DATE/TIME: 11/25/2017 16:25 [facility] COMPARISON: No previous studies available for comparison. INDICATIONS : Post op right total hip replacement. MEDICAL HISTORY : None. SURGICAL HISTORY : None. ENCOUNTER: Initial ACUITY: 1 day PAIN SCORE: Non-responsive. LOCATION: Right Hip FINDINGS: A two view examination of the right hip was performed. Post surgical changes following right hip repl acement are noted. Femoral and acetabular components are well-seated in satisfactory alignment. Bony structures are intact. CONCLUSION: Satisfactory post operative appearance of the right hip following hip replacement. Rafita Purdy MD on November 25, 2017 at 17:03 Board Certified Radiologist. This report was verified electronically.
[2017-11-25] MEDS: LACTATED RINGER'S 1000 ML INJ 1,000 ML IV SCH (18:00)
--- NOTE | 2017-11-25 18:42 | RADRPT ---
EXAM DATE/TIME: 11/25/2017 17:39 [facility] COMPARISON: CHEST SINGLE AP, November 25, 2017, 3:06. INDICATIONS : Short of breath, rule out pneumonia, and congestive heart failure. MEDICAL HISTORY : None. SURGICAL HISTORY : Right total hip. ENCOUNTER: Initial ACUITY: 1 day PAIN SCORE: Non-responsive. LOCATION: Bilateral chest FINDINGS: A single view of the chest demonstrates patchy airspace disease left lung base most characteristic of bronchopneumonia. Right lung clear. Tortuous aorta. Mild cardiomegaly. No pneumothorax. CONCLUSION: 1. Patchy airspace disease left lung base most characteristic of bronchopneumonia. Aba Villegas MD on November 25, 2017 at 18:39 Board Certified Radiologist. This report was verified electronically.
[2017-11-25] MEDS ORDERED: DO NOT ADM ANY ANTICOAGULANT DRUGS PRN (21:00)
[2017-11-25] MEDS: MAGNESIUM HYDROXIDE SUSP 30 ML CUP PO SCH (21:06)
[2017-11-25] MEDS: SENNOSIDES 8.6 MG TAB PO SCH (21:06)
[2017-11-25] MEDS: AMITRIPTYLINE HCL 50 MG TAB PO SCH (21:06)
[2017-11-25] MEDS: VERAPAMIL HCL 120 MG SUSTAINED RELEASE TAB PO SCH (21:06)
[2017-11-25] MEDS: CLINDAMYCIN 600 MG/NS PREMIX 50 ML IV SCH (21:18)
[2017-11-26] VITALS (11 sets, daily range): BP systolic 101–130; BP diastolic 55–58; PULSE 60–113; RESP 15–19; TEMP 95.7–98.1; O2SAT 94–100
[2017-11-26] MEDS: CLINDAMYCIN 600 MG/NS PREMIX 50 ML IV SCH ×3 (02:32→15:46)
[2017-11-26] MEDS: LACTATED RINGER'S 1000 ML INJ 1,000 ML IV SCH ×2 (04:30→17:44)
[2017-11-26] MEDS: SODIUM CHLOR 0.9% 1000 ML INJ 1,000 ML IV SCH (05:19)
--- NOTE | 2017-11-26 07:44 | PD.ORT.PN ---
Subjective Subjective Remarks Patient appears comfortable. Dementia Objective Vitals Vital Signs Date Time Temp Pulse Resp B/P (MAP) Pulse Ox O2 Delivery O2 Flow Rate FiO2 11/26/17 04:00 99 11/26/17 03:58 96.7 60 18 101/56 (71) 98 11/26/17 00:00 107 11/25/17 23:26 97.1 62 18 97/54 (68) 97 11/25/17 20:00 85 11/25/17 19:25 Nasal Cannula 3.00 11/25/17 18:45 96.4 90 16 95/51 (66) 90 11/25/17 18:23 97.8 85 15 103/55 (71) 95 Nasal Cannula 3 11/25/17 18:00 85 15 105/58 (74) 96 Nasal Cannula 4 11/25/17 17:45 85 15 103/55 (71) 100 Simple Mask 6 11/25/17 17:30 70 18 111/55 (73) 100 Non-Rebreather 15 11/25/17 17:20 70 14 88 Non-Rebreather 15 11/25/17 17:15 72 17 102/53 (69) 85 Simple Mask 10 11/25/17 17:00 85 15 118/57 (77) 88 Simple Mask 6 11/25/17 16:45 79 14 120/58 (78) 94 Nasal Cannula 6 11/25/17 16:30 66 14 126/52 (76) 99 Nasal Cannula 3 11/25/17 16:16 97.4 73 15 131/58 (82) 99 Nasal Cannula 3 11/25/17 13:21 97.8 99 17 149/71 (97) 92 11/25/17 08:05 96 21 11/25/17 07:52 88 16 162/63 (96) 96 Room Air I/O 11/25/17 11/25/17 11/25/17 11/26/17 11/26/17 11/26/17 07:00 15:00 23:00 07:00 15:00 23:00 Intake Total 328 ml 1620 ml 813 ml Output Total 1350 ml 250 ml 100 ml Balance -1350 ml 328 ml 1370 ml 713 ml Intake Oral 240 ml 0 ml IV Total 328 ml 80 ml 813 ml Other 1300 ml Output Urine Total 1350 ml 50 ml 100 ml Estimated Blood Loss 200 ml # Voids 100 # Bowel Movements 0 0 Result Diagram: 11/25/17 0300 11/25/17 0300 Other Results Laboratory Tests Test 11/25/17 11:00 Prothromb Time International Ratio 1.0 RATIO Prothrombin Time 10.1 SEC (9.8-11.6) Imaging Last 24 hours Impressions Hip and Pelvis X-Ray 11/25/17 0000 Signed Impressions: Service Date/Time: November 03:06 - CONCLUSION: Right femoral neck fracture. Hernandez Bryson MD Chest X-Ray 11/25/17 0000 Signed Impressions: Service Date/Time: November 03:06 - CONCLUSION: No acute disease. Hernandez Bryson MD Objective Remarks Dressing dry. X-ray looks fine. Leg lengths are equal. In abduction pillow. No calf tenderness. Neuro exam appears normal Assessment & Plan Assessment and Plan Right femoral neck fracture, displaced. Surgery: Right hip bipolar replacement, cemented: POD #1 PLAN: Stable postop day #1. Probable transfer to long term or back to correction when stable. Urine output low but reasonable, increase fluids. Xarelto for 25 days, 10 mg. [place] 5 for pain. 3008 filled out. Weightbearing as tolerated. No dressing change Orthopedically stable Nelson Carlson MD Nov 26, 2017 07:44
[2017-11-26] MEDS: RESP: ALBUTEROL 2.5 MG/IPRATROPIUM 0.5 MG NEB (SCH) NEB ×3 (08:03→21:23)
[2017-11-26] MEDS: FERROUS SULFATE 325 MG (65 MG ELEMENTAL IRON) TAB PO SCH (08:52)
[2017-11-26] MEDS: PRAVASTATIN SOD 40 MG TAB PO SCH (08:52)
[2017-11-26] MEDS: DIGOXIN 0.125 MG TAB PO SCH (08:52)
[2017-11-26] MEDS: MAGNESIUM HYDROXIDE SUSP 30 ML CUP PO SCH ×2 (08:58→21:51)
[2017-11-26] MEDS: SODIUM CHLORIDE 0.9% FLUSH 10 ML FLUSH IV FLUSH SCH ×2 (09:00→21:52)
[2017-11-26] MEDS ORDERED: ISOS30TA3 PO (11:01)
[2017-11-26] MEDS: ACETAMINOPHEN/HYDROcodone 325 MG/5 MG TAB PO PRN ×2 (13:16→17:09)
[2017-11-26 13:39] LABS: AUTOMATED NEUTROPHIL # 8.4 TH/MM3 (1.8-7.7); BASOPHIL % 0.1 % (0.0-2.0); EOSINOPHIL % 0.1 % (0.0-4.0); HEMATOCRIT 23.7 % (35.0-46.0); HEMOGLOBIN 8.1 GM/DL (11.6-15.3); LYMPH % 6.6 % (9.0-44.0); LYMPHOCYTE # 0.6 TH/MM3 (1.0-4.8); MEAN CELL VOLUME 92.8 FL (80.0-100.0); MEAN CORPUSCULAR HEMOGLOBIN 31.7 PG (27.0-34.0); MEAN CORPUSCULAR HGB CONC 34.1 % (32.0-36.0); MONO % 5.9 % (0.0-8.0); MONOCYTE # 0.6 TH/MM3 (0-0.9); NEUT % 87.3 % (16.0-70.0); PLATELET COUNT 99 TH/MM3 (150-450); RED BLOOD COUNT 2.55 MIL/MM3 (4.00-5.30); RED CELL DISTRIBUTION WIDTH 14.7 % (11.6-17.2); WHITE BLOOD COUNT 9.6 TH/MM3 (4.0-11.0)
[2017-11-26 14:24] LABS: BICARBONATE 30.2 MEQ/L (21.0-32.0); CALCIUM 8.1 MG/DL (8.5-10.1); CREATININE 0.78 MG/DL (0.50-1.00)
[2017-11-26 14:31] LABS: BANDS 11 % (0-6); LYMPHOCYTES 4 % (9-44); MONOCYTES 3 % (0-8); NEUTROPHIL # MANUAL DIFF 8.9 TH/MM3 (1.8-7.7); POLYS (SEG NEUTROPHILS) 82 % (16-70)
--- NOTE | 2017-11-26 15:33 | HHI.PR ---
Subjective Remarks She is clear. Pleasantly confused. She is alert and oriented. Per family she is at her baseline mentation. Not eating much. Add ensure meals. She isn' t in acute distress and discussed with the nurse E skin pain medications. Patient says she has pain at the surgical site. No fever or chills no nausea vomiting. This time. No fever or chills. No cough however CXR with poss bronchopneumonia. Objective Vitals Vital Signs Date Time Temp Pulse Resp B/P (MAP) Pulse Ox O2 Delivery O2 Flow Rate FiO2 11/26/17 12:00 96.1 103 16 130/55 (80) 100 11/26/17 10:21 112 11/26/17 08:03 97 Nasal Cannula 3.00 11/26/17 08:00 98.1 86 15 120/58 (78) 99 11/26/17 04:00 99 11/26/17 03:58 96.7 60 18 101/56 (71) 98 11/26/17 00:00 107 11/25/17 23:26 97.1 62 18 97/54 (68) 97 11/25/17 20:00 85 11/25/17 19:25 Nasal Cannula 3.00 11/25/17 18:45 96.4 90 16 95/51 (66) 90 11/25/17 18:23 97.8 85 15 103/55 (71) 95 Nasal Cannula 3 11/25/17 18:00 85 15 105/58 (74) 96 Nasal Cannula 4 11/25/17 17:45 85 15 103/55 (71) 100 Simple Mask 6 11/25/17 17:30 70 18 111/55 (73) 100 Non-Rebreather 15 11/25/17 17:20 70 14 88 Non-Rebreather 15 11/25/17 17:15 72 17 102/53 (69) 85 Simple Mask 10 11/25/17 17:00 85 15 118/57 (77) 88 Simple Mask 6 11/25/17 16:45 79 14 120/58 (78) 94 Nasal Cannula 6 11/25/17 16:30 66 14 126/52 (76) 99 Nasal Cannula 3 11/25/17 16:16 97.4 73 15 131/58 (82) 99 Nasal Cannula 3 I/O 2/15/18 2/11/25/17 11/26/17 11/26/17 11/26/17 07:00 15:00 23:00 07:00 15:00 23:00 Intake Total 328 ml 1620 ml 813 ml Output Total 1350 ml 250 ml 100 ml Balance -1350 ml 328 ml 1370 ml 713 ml Intake Oral 240 ml 0 ml IV Total 328 ml 80 ml 813 ml Other 1300 ml Output Urine Total 1350 ml 50 ml 100 ml Estimated Blood Loss 200 ml # Voids 100 # Bowel Movements 0 0 Result Diagram: 11/26/17 1307 11/26/17 1307 Imaging Last Impressions Hip X-Ray 11/25/17 1548 Signed Impressions: Service Date/Time: November 16:25 - CONCLUSION: Satisfactory post operative appearance of the right hip following hip replacement. Rafita Purdy MD Hip and Pelvis X-Ray 11/25/17 0000 Signed Impressions: Service Date/Time: November 03:06 - CONCLUSION: Right femoral neck fracture. Hernandez Bryson MD Chest X-Ray 11/25/17 0000 Signed Impressions: Service Date/Time: November 17:39 - CONCLUSION: 1. Patchy airspace disease left lung base most characteristic of bronchopneumonia. Aba Villegas MD Objective Remarks GENERAL: This is a well-nourished, well-developed patient, in no apparent distress. CARDIOVASCULAR: Regular rate and rhythm without murmurs, gallops, or rubs. RESPIRATORY: Diminished bases. No wheezes, rales, or rhonchi. GASTROINTESTINAL: Abdomen soft, non-tender, nondistended. MUSCULOSKELETAL: Extremities without clubbing, cyanosis, or edema. Right hip tenderness. No calf tenderness. NEUROLOGICAL: Awake and alert x 1. Motor and sensory grossly within normal limits. Normal speech. Procedures S/p fall with Right femoral neck fracture, subcapital, displaced S/p Right hip bipolar replacement arthroplasty by Dr Tatianna Palmer on 11/25/17 A/P Problem List: (1) Closed right hip fracture ICD Code: S72.001A - Fracture of unspecified part of neck of right femur, initial encounter for closed fracture Status: Acute (2) HTN (hypertension) ICD Code: I10 - Essential (primary) hypertension Status: Chronic (3) COPD (chronic obstructive pulmonary disease) ICD Code: J44.9 - Chronic obstructive pulmonary disease, unspecified Status: Chronic Assessment and Plan 82 y/o female with a history of dementia, depression, htn, hld, irregular heart beat, and copd was brought in from her nursing facility after having a fall. S/p fall with Right femoral neck fracture, subcapital, displaced S/p Right hip bipolar replacement arthroplasty by Dr Tatianna Palmer on 11/25/17 Hip x ray reviewed and shows a right femoral neck fracture. Consult orthopedics Pain management per pain scale Management per ortho PT HTN, chronic-Cont home medications, monitor vitals COPD, chronic -Duonebs joaquín and prn -IS - Start Azithromycin and Rocephine patient with bronchopneumonia - check blood cx Moderate to severe Calorie protein malnutrition: BMI of 16. Add ensure DVT prophylaxis: SCDs Code Status DNR Discussed Condition With Patient, nurse, daughter at bedside Problem Qualifiers (1) Closed right hip fracture: Qualified Codes: S72.001A - Fracture of unspecified part of neck of right femur , initial encounter for closed fracture (2) HTN (hypertension): Qualified Codes: I10 - Essential (primary) hypertension (3) COPD (chronic obstructive pulmonary disease): Qualified Codes: J44.9 - Chronic obstructive pulmonary disease, unspecified Sapna Saleem MD Nov 26, 2017 15:33
[2017-11-26] MEDS: RIVAROXABAN 10 MG TAB PO SCH (15:46)
[2017-11-26] MEDS: LEVOFLOXACIN 500 MG PREMIX INJ 100 ML IV SCH (17:02)
[2017-11-26 21:44] LABS: LACTIC ACID SEPSIS PROTOCOL 2.9 mmol/L (0.4-2.0)
[2017-11-26] MEDS: VERAPAMIL HCL 120 MG SUSTAINED RELEASE TAB PO SCH (21:51)
[2017-11-26] MEDS: SENNOSIDES 8.6 MG TAB PO SCH (21:51)
[2017-11-26] MEDS: AMITRIPTYLINE HCL 50 MG TAB PO SCH (21:51)
[2017-11-26] MEDS: guaiFENesin E.R. 600 MG TAB PO SCH (21:54)
[2017-11-27] VITALS (13 sets, daily range): BP systolic 104–138; BP diastolic 54–64; PULSE 91–106; RESP 17–18; TEMP 97.3–98.7; O2SAT 90–100
[2017-11-27] MEDS: SODIUM CHLOR 0.9% 1000 ML INJ 1,000 ML IV SCH (05:08)
[2017-11-27] MEDS: LACTATED RINGER'S 1000 ML INJ 1,000 ML IV SCH (05:30)
[2017-11-27 06:14] LABS: AUTOMATED NEUTROPHIL # 4.4 TH/MM3 (1.8-7.7); BASOPHIL % 0.2 % (0.0-2.0); EOSINOPHIL % 0.4 % (0.0-4.0); LYMPH % 13.1 % (9.0-44.0); LYMPHOCYTE # 0.7 TH/MM3 (1.0-4.8); MEAN CELL VOLUME 91.8 FL (80.0-100.0); MEAN CORPUSCULAR HEMOGLOBIN 31.4 PG (27.0-34.0); MEAN CORPUSCULAR HGB CONC 34.2 % (32.0-36.0); MEAN PLATELET VOLUME 9.3 FL (7.0-11.0); MONO % 7.2 % (0.0-8.0); MONOCYTE # 0.4 TH/MM3 (0-0.9); NEUT % 79.1 % (16.0-70.0); PLATELET COUNT 74 TH/MM3 (150-450); RED BLOOD COUNT 2.08 MIL/MM3 (4.00-5.30); RED CELL DISTRIBUTION WIDTH 14.2 % (11.6-17.2); WHITE BLOOD COUNT 5.5 TH/MM3 (4.0-11.0)
[2017-11-27 06:28] LABS: HEMATOCRIT 19.1 % (35.0-46.0); HEMOGLOBIN 6.5 GM/DL (11.6-15.3)
[2017-11-27 06:33] LABS: BICARBONATE 31.8 MEQ/L (21.0-32.0); CALCIUM 7.5 MG/DL (8.5-10.1); CREATININE 0.74 MG/DL (0.50-1.00)
[2017-11-27] MEDS ORDERED: FUROSEMIDE 20 MG/2 ML VIAL IV PUSH ONE (07:00)
[2017-11-27] MEDS ORDERED: SODIUM CHLOR 0.9% 250 ML INJ 250 ML IV ONE (07:00)
--- NOTE | 2017-11-27 07:43 | PD.ORT.PN ---
Subjective Post Op Day #: 2 Subjective Remarks demented. appears comfortable. Objective Vitals Vital Signs Date Time Temp Pulse Resp B/P (MAP) Pulse Ox O2 Delivery O2 Flow Rate FiO2 11/27/17 04:00 98.0 104 18 113/56 (75) 100 11/27/17 00:03 100 11/27/17 00:00 97.5 103 18 112/54 (73) 98 11/26/17 21:23 94 Nasal Cannula 4.00 11/26/17 20:08 108 11/26/17 20:00 97.1 113 19 113/55 (74) 100 11/26/17 16:00 95.7 111 17 120/58 (78) 99 11/26/17 12:00 96.1 103 16 130/55 (80) 100 11/26/17 10:21 112 11/26/17 08:03 97 Nasal Cannula 3.00 11/26/17 08:00 98.1 86 15 120/58 (78) 99 I/O 11/26/17 11/26/17 11/26/17 11/27/17 11/27/17 11/27/17 07:00 15:00 23:00 07:00 15:00 23:00 Intake Total 813 ml 300 ml 1026 ml 728 ml Output Total 100 ml 200 ml 400 ml Balance 713 ml 100 ml 1026 ml 328 ml Intake Oral 0 ml 300 ml 120 ml IV Total 813 ml 1026 ml 608 ml Output Urine Total 100 ml 200 ml 400 ml Bladder Scan Volume Amount 350 ml # Bowel Movements 0 0 Result Diagram: 11/27/17 0510 11/27/17 0510 Imaging Last 24 hours Impressions Hip and Pelvis X-Ray 11/25/17 0000 Signed Impressions: Service Date/Time: November 03:06 - CONCLUSION: Right femoral neck fracture. Hernandez Bryson MD Chest X-Ray 11/25/17 0000 Signed Impressions: Service Date/Time: November 03:06 - CONCLUSION: No acute disease. Hernandez Bryson MD Objective Remarks in bed, nad Dressing dry. In abduction pillow. No calf tenderness. Neuro exam appears normal Assessment & Plan Ortho Post Op Day #: 2 Problem List: Assessment and Plan Right femoral neck fracture, displaced. Surgery: Right hip bipolar replacement, cemented: POD #2 PLAN: Stable postop day #2. anemia - 2 units ordered Probable transfer to group home or back to shelter when stable. Urine output low - 400cc from straight cath last night Xarelto for 25 days, 10 mg. [place] 5 for pain. 3008 filled out. Weightbearing as tolerated. No dressing change Orthopedically stable Yonis Bonilla Nov 27, 2017 07:43
[2017-11-27] MEDS: FERROUS SULFATE 325 MG (65 MG ELEMENTAL IRON) TAB PO SCH ×2 (08:23→11:53)
[2017-11-27] MEDS: guaiFENesin E.R. 600 MG TAB PO SCH ×2 (08:23→21:58)
[2017-11-27] MEDS: MAGNESIUM HYDROXIDE SUSP 30 ML CUP PO SCH ×2 (08:24→21:58)
[2017-11-27] MEDS: DIGOXIN 0.125 MG TAB PO SCH (08:24)
[2017-11-27] MEDS: RESP: ALBUTEROL 2.5 MG/IPRATROPIUM 0.5 MG NEB (SCH) NEB ×2 (08:28→20:40)
[2017-11-27] MEDS: PRAVASTATIN SOD 40 MG TAB PO SCH (09:00)
[2017-11-27] MEDS: SODIUM CHLORIDE 0.9% FLUSH 10 ML FLUSH IV FLUSH SCH ×2 (09:00→21:59)
--- NOTE | 2017-11-27 10:22 | HHI.PR ---
Subjective Remarks Patient in bed, pleasantly confused. She is very tired, says she has no pain at this time. Doesn't appears in pain. She is not coughing. No chest apin . No n/v/ d/c. Did nto eat much yesterday. HgB dropped today plan to transfuse. Objective Vitals Vital Signs Date Time Temp Pulse Resp B/P (MAP) Pulse Ox O2 Delivery O2 Flow Rate FiO2 11/27/17 08:31 98 Nasal Cannula 2.00 11/27/17 08:00 98.1 97 18 138/64 (88) 99 11/27/17 04:00 98.0 104 18 113/56 (75) 100 11/27/17 00:03 100 11/27/17 00:00 97.5 103 18 112/54 (73) 98 11/26/17 21:23 94 Nasal Cannula 4.00 11/26/17 20:08 108 11/26/17 20:00 97.1 113 19 113/55 (74) 100 11/26/17 16:00 95.7 111 17 120/58 (78) 99 11/26/17 12:00 96.1 103 16 130/55 (80) 100 I/O 11/26/17 11/26/17 11/26/17 11/27/17 11/27/17 11/27/17 07:00 15:00 23:00 07:00 15:00 23:00 Intake Total 813 ml 300 ml 1026 ml 728 ml Output Total 100 ml 200 ml 400 ml Balance 713 ml 100 ml 1026 ml 328 ml Intake Oral 0 ml 300 ml 120 ml IV Total 813 ml 1026 ml 608 ml Output Urine Total 100 ml 200 ml 400 ml Bladder Scan Volume Amount 350 ml # Bowel Movements 0 0 Result Diagram: 11/27/17 0510 11/27/17 0510 Imaging Last Impressions Hip X-Ray 11/25/17 1548 Signed Impressions: Service Date/Time: November 16:25 - CONCLUSION: Satisfactory post operative appearance of the right hip following hip replacement. Rafita Purdy MD Hip and Pelvis X-Ray 11/25/17 0000 Signed Impressions: Service Date/Time: November 03:06 - CONCLUSION: Right femoral neck fracture. Hernandez Bryson MD Chest X-Ray 11/25/17 0000 Signed Impressions: Service Date/Time: November 17:39 - CONCLUSION: 1. Patchy airspace disease left lung base most characteristic of bronchopneumonia. Aba Villegas MD Objective Remarks GENERAL: This is a well-nourished, well-developed patient, in no apparent distress. CARDIOVASCULAR: Regular rate and rhythm without murmurs, gallops, or rubs. RESPIRATORY: Diminished bases. No wheezes, rales, or rhonchi. GASTROINTESTINAL: Abdomen soft, non-tender, nondistended. MUSCULOSKELETAL: Extremities without clubbing, cyanosis, or edema. Right hip tenderness. No calf tenderness. NEUROLOGICAL: Awake and alert x 1. Motor and sensory grossly within normal limits. Normal speech. Procedures S/p fall with Right femoral neck fracture, subcapital, displaced S/p Right hip bipolar replacement arthroplasty by Dr Tatianna Palmer on 11/25/17 A/P Problem List: (1) Closed right hip fracture ICD Code: S72.001A - Fracture of unspecified part of neck of right femur, initial encounter for closed fracture Status: Acute (2) HTN (hypertension) ICD Code: I10 - Essential (primary) hypertension Status: Chronic (3) COPD (chronic obstructive pulmonary disease) ICD Code: J44.9 - Chronic obstructive pulmonary disease, unspecified Status: Chronic Assessment and Plan 82 y/o female with a history of dementia, depression, htn, hld, irregular heart beat, and copd was brought in from her nursing facility after having a fall. S/p fall with Right femoral neck fracture, subcapital, displaced S/p Right hip bipolar replacement arthroplasty by Dr Tatianna Palmer on 11/25/17 Hip x ray reviewed and shows a right femoral neck fracture. Consult orthopedics Pain management per pain scale Management per ortho PT Anemia postsurgical on chronic iron deficiency anemia, HGB 6.5 on 11/27/17. Transfuse 2 pRBC, pretreat. Monitor H/H. Continue ferrous sulfate po. HTN, chronic-Cont home medications, monitor vitals COPD, chronic -Duonebs joaquín and prn -IS - Start Azithromycin and Rocephine patient with bronchopneumonia - check blood cx Moderate to severe Calorie protein malnutrition: BMI of 16. Add ensure, consult director sales and trade marketing DVT prophylaxis: SCDs Code Status DNR Discussed Condition With Patient, nurse Problem Qualifiers (1) Closed right hip fracture: Qualified Codes: S72.001A - Fracture of unspecified part of neck of right femur , initial encounter for closed fracture (2) HTN (hypertension): Qualified Codes: I10 - Essential (primary) hypertension (3) COPD (chronic obstructive pulmonary disease): Qualified Codes: J44.9 - Chronic obstructive pulmonary disease, unspecified Sapna Saleem MD Nov 27, 2017 10:22
[2017-11-27] MEDS: ACETAMINOPHEN/HYDROcodone 325 MG/5 MG TAB PO PRN ×2 (11:50→21:58)
[2017-11-27] MEDS ORDERED: FERROUS SULFATE 325 MG (65 MG ELEMENTAL IRON) TAB PO SCH (12:00)
--- NOTE | 2017-11-27 14:01 | EKG ---
Date Performed: 11/26/2017 Time Performed: 20:22:19 PTAGE: 82 years EKG: SINUS TACHYCARDIA INTRAVENTRICULAR CONDUCTION DELAY POSSIBLE ANTERIOR MYOCARDIAL INFARCTION , OF INDETERMINATE AGE PROBABLE INFERIOR MYOCARDIAL INFARCTION , PROBABLY OLD ABNORMAL ECG Baseline artifact significantly limits accuracy of interpretation. PREVIOUS TRACING : 11/25/2017 03.28 DOCTOR: Aleksander Osei Interpretating Date/Time 11/27/2017 13:58:59
[2017-11-27] MEDS: RIVAROXABAN 10 MG TAB PO SCH (16:26)
[2017-11-27] MEDS: SENNOSIDES 8.6 MG TAB PO SCH (21:58)
[2017-11-27] MEDS: VERAPAMIL HCL 120 MG SUSTAINED RELEASE TAB PO SCH (21:58)
[2017-11-27] MEDS: AMITRIPTYLINE HCL 50 MG TAB PO SCH (21:58)
[2017-11-27] MEDS: LEVOFLOXACIN 500 MG PREMIX INJ 100 ML IV SCH (22:22)
[2017-11-28] VITALS (9 sets, daily range): BP systolic 100–135; BP diastolic 55–68; PULSE 88–115; RESP 17–18; TEMP 95.6–97.8; O2SAT 91–100
[2017-11-28] MEDS: ACETAMINOPHEN/HYDROcodone 325 MG/5 MG TAB PO PRN ×2 (06:14→15:34)
[2017-11-28 06:37] LABS: AUTOMATED NEUTROPHIL # 3.4 TH/MM3 (1.8-7.7); BASOPHIL % 0.4 % (0.0-2.0); EOSINOPHIL % 0.7 % (0.0-4.0); HEMATOCRIT 23.5 % (35.0-46.0); HEMOGLOBIN 8.2 GM/DL (11.6-15.3); LYMPH % 17.6 % (9.0-44.0); LYMPHOCYTE # 0.8 TH/MM3 (1.0-4.8); MEAN CORPUSCULAR HEMOGLOBIN 30.1 PG (27.0-34.0); MEAN PLATELET VOLUME 8.6 FL (7.0-11.0); MONO % 9.7 % (0.0-8.0); MONOCYTE # 0.5 TH/MM3 (0-0.9); NEUT % 71.6 % (16.0-70.0); PLATELET COUNT 71 TH/MM3 (150-450); RED BLOOD COUNT 2.73 MIL/MM3 (4.00-5.30); WHITE BLOOD COUNT 4.7 TH/MM3 (4.0-11.0)
[2017-11-28 07:12] LABS: BICARBONATE 32.6 MEQ/L (21.0-32.0); CALCIUM 7.4 MG/DL (8.5-10.1); CREATININE 0.52 MG/DL (0.50-1.00); MAGNESIUM 2.7 MG/DL (1.5-2.5)
[2017-11-28 07:26] LABS: CALCIUM-PROTEIN CORRECTED 8.6 MG/DL (8.5-10.1); TOTAL PROTEIN 4.9 GM/DL (6.4-8.2)
[2017-11-28] MEDS: MAGNESIUM HYDROXIDE SUSP 30 ML CUP PO SCH ×2 (07:44→21:15)
[2017-11-28] MEDS: guaiFENesin E.R. 600 MG TAB PO SCH ×2 (07:44→21:15)
[2017-11-28] MEDS: DIGOXIN 0.125 MG TAB PO SCH (07:44)
[2017-11-28] MEDS: FERROUS SULFATE 325 MG (65 MG ELEMENTAL IRON) TAB PO SCH (07:44)
[2017-11-28] MEDS: PRAVASTATIN SOD 40 MG TAB PO SCH (07:44)
--- NOTE | 2017-11-28 07:48 | PD.ORT.PN ---
Subjective Post Op Day #: 3 Subjective Remarks demented. appears comfortable. jo placed last night. Objective Vitals Vital Signs Date Time Temp Pulse Resp B/P (MAP) Pulse Ox O2 Delivery O2 Flow Rate FiO2 11/28/17 04:36 96.8 88 18 100/55 (70) 98 11/28/17 00:35 96.8 90 18 114/59 (77) 92 11/27/17 20:42 92 Nasal Cannula 3.00 11/27/17 19:56 98.7 91 18 104/60 90 11/27/17 19:49 Nasal Cannula 3.00 11/27/17 19:49 105 11/27/17 16:52 97.3 91 18 117/58 99 11/27/17 16:46 97.3 91 18 117/58 99 11/27/17 16:00 97.5 91 18 117/58 (77) 95 11/27/17 13:30 98.5 106 17 111/54 99 11/27/17 12:00 98.5 106 17 111/54 (73) 99 11/27/17 08:31 98 Nasal Cannula 2.00 11/27/17 08:00 98.1 97 18 138/64 (88) 99 I/O 11/27/17 11/27/17 11/27/17 11/28/17 11/28/17 11/28/17 07:00 15:00 23:00 07:00 15:00 23:00 Intake Total 728 ml 485 ml 1060 ml 240 ml Output Total 400 ml 250 ml Balance 328 ml 485 ml 1060 ml -10 ml Intake Oral 120 ml 480 ml 240 ml 240 ml IV Total 608 ml Packed Cells 800 ml Blood Product IV Normal Saline Flush 5 ml 20 ml Output Urine Total 400 ml 250 ml # Voids 3 # Bowel Movements 0 0 0 Result Diagram: 11/28/17 0525 11/28/17 0525 Imaging Last 24 hours Impressions Hip and Pelvis X-Ray 11/25/17 0000 Signed Impressions: Service Date/Time: November 03:06 - CONCLUSION: Right femoral neck fracture. Hernandez Bryson MD Chest X-Ray 11/25/17 0000 Signed Impressions: Service Date/Time: November 03:06 - CONCLUSION: No acute disease. Hernandez Bryson MD Objective Remarks in bed, nad Dressing dry. In abduction pillow. No calf tenderness. Neuro exam appears normal Assessment & Plan Ortho Post Op Day #: 3 Problem List: Assessment and Plan Right femoral neck fracture, displaced. Surgery: Right hip bipolar replacement, cemented: POD #2 PLAN: Stable postop day #2. anemia - 2 units ordered Probable transfer to prison or back to prison when stable. Urine output low - jo was place last night Xarelto for 25 days, 10 mg. [place] 5 for pain. 3008 filled out. Weightbearing as tolerated. No dressing change Orthopedically stable Yonis Bonilla Nov 28, 2017 07:48
[2017-11-28] MEDS: RESP: ALBUTEROL 2.5 MG/IPRATROPIUM 0.5 MG NEB (SCH) NEB ×3 (08:19→19:00)
[2017-11-28] MEDS: SODIUM CHLORIDE 0.9% FLUSH 10 ML FLUSH IV FLUSH SCH ×2 (09:00→21:16)
--- NOTE | 2017-11-28 09:29 | HHI.PR ---
Subjective Remarks In the chair. Pleasantly confused however at baseline mentation. She denies any pain. No nausea or vomiting no diarrhea or constipation. Eating better. Objective Vitals Vital Signs Date Time Temp Pulse Resp B/P (MAP) Pulse Ox O2 Delivery O2 Flow Rate FiO2 11/28/17 08:19 97 Nasal Cannula 3.00 11/28/17 08:00 95.8 90 17 113/63 (80) 98 11/28/17 04:36 96.8 88 18 100/55 (70) 98 11/28/17 00:35 96.8 90 18 114/59 (77) 92 11/27/17 20:42 92 Nasal Cannula 3.00 11/27/17 19:56 98.7 91 18 104/60 90 11/27/17 19:49 Nasal Cannula 3.00 11/27/17 19:49 105 11/27/17 16:52 97.3 91 18 117/58 99 11/27/17 16:46 97.3 91 18 117/58 99 11/27/17 16:00 97.5 91 18 117/58 (77) 95 11/27/17 13:30 98.5 106 17 111/54 99 11/27/17 12:00 98.5 106 17 111/54 (73) 99 I/O 11/27/17 11/27/17 11/27/17 11/28/17 11/28/17 11/28/17 07:00 15:00 23:00 07:00 15:00 23:00 Intake Total 728 ml 485 ml 1060 ml 240 ml Output Total 400 ml 250 ml Balance 328 ml 485 ml 1060 ml -10 ml Intake Oral 120 ml 480 ml 240 ml 240 ml IV Total 608 ml Packed Cells 800 ml Blood Product IV Normal Saline Flush 5 ml 20 ml Output Urine Total 400 ml 250 ml # Voids 3 # Bowel Movements 0 0 0 Result Diagram: 11/28/17 0525 11/28/17 0525 Imaging Last Impressions Hip X-Ray 11/25/17 1548 Signed Impressions: Service Date/Time: November 16:25 - CONCLUSION: Satisfactory post operative appearance of the right hip following hip replacement. Rafita Purdy MD Hip and Pelvis X-Ray 11/25/17 0000 Signed Impressions: Service Date/Time: November 03:06 - CONCLUSION: Right femoral neck fracture. Hernandez Bryson MD Chest X-Ray 11/25/17 0000 Signed Impressions: Service Date/Time: November 17:39 - CONCLUSION: 1. Patchy airspace disease left lung base most characteristic of bronchopneumonia. Aba Villegas MD Objective Remarks GENERAL: This is a well-nourished, well-developed patient, in no apparent distress. CARDIOVASCULAR: Regular rate and rhythm without murmurs, gallops, or rubs. RESPIRATORY: Diminished bases. No wheezes, rales, or rhonchi. GASTROINTESTINAL: Abdomen soft, non-tender, nondistended. MUSCULOSKELETAL: Extremities without clubbing, cyanosis, or edema. Right hip tenderness. No calf tenderness. NEUROLOGICAL: Awake and alert x 1. Motor and sensory grossly within normal limits. Normal speech. Procedures S/p fall with Right femoral neck fracture, subcapital, displaced S/p Right hip bipolar replacement arthroplasty by Dr Tatianna Palmer on 11/25/17 A/P Problem List: (1) Closed right hip fracture ICD Code: S72.001A - Fracture of unspecified part of neck of right femur, initial encounter for closed fracture Status: Acute (2) HTN (hypertension) ICD Code: I10 - Essential (primary) hypertension Status: Chronic (3) COPD (chronic obstructive pulmonary disease) ICD Code: J44.9 - Chronic obstructive pulmonary disease, unspecified Status: Chronic Assessment and Plan 82 y/o female with a history of dementia, depression, htn, hld, irregular heart beat, and copd was brought in from her nursing facility after having a fall. S/p fall with Right femoral neck fracture, subcapital, displaced S/p Right hip bipolar replacement arthroplasty by Dr Tatianna Palmer on 11/25/17 Hip x ray reviewed and shows a right femoral neck fracture. Consult orthopedics Pain management per pain scale Management per ortho PT Anemia postsurgical on chronic iron deficiency anemia, HGB 6.5 on 11/27/17. Transfuse 2 pRBC, pretreat. Monitor H/H. Continue ferrous sulfate po. HTN, chronic-Cont home medications, monitor vitals COPD, chronic -Duonebs joaquín and prn -IS - Start Azithromycin and Rocephine patient with bronchopneumonia - check blood cx Moderate to severe Calorie protein malnutrition: BMI of 16. Add ensure, consult chief engineer drilling and recovery DVT prophylaxis: SCDs Code Status DNR Discussed Condition With Patient, nurse Problem Qualifiers (1) Closed right hip fracture: Qualified Codes: S72.001A - Fracture of unspecified part of neck of right femur , initial encounter for closed fracture (2) HTN (hypertension): Qualified Codes: I10 - Essential (primary) hypertension (3) COPD (chronic obstructive pulmonary disease): Qualified Codes: J44.9 - Chronic obstructive pulmonary disease, unspecified Sapna Saleem MD Nov 28, 2017 09:29
--- NOTE | 2017-11-28 12:20 | HHI.DS ---
Discharge Summary Admission Date Nov 25, 2017 at 04:01 Discharge Date: Nov 28, 2017 Admitting Diagnosis hip fracture (1) Closed right hip fracture ICD Code: S72.001A - Fracture of unspecified part of neck of right femur, initial encounter for closed fracture Status: Acute (2) HTN (hypertension) ICD Code: I10 - Essential (primary) hypertension Status: Chronic (3) COPD (chronic obstructive pulmonary disease) ICD Code: J44.9 - Chronic obstructive pulmonary disease, unspecified Status: Chronic Procedures S/p fall with Right femoral neck fracture, subcapital, displaced S/p Right hip bipolar replacement arthroplasty by Dr Tatianna Palmer on 11/25/17 Brief History - From Admission 82 y/o female with a history of dementia, htn, hld, irregular heart beat, and copd was brought in from her nursing facility after having a fall. Patient is a poor historian and only oriented to self. She does not remember falling but is able to tell me she is in pain and states her right hip. She can not tell me the pain scale or any other details regarding the pain. She does deny any chest pain, sob, or head ache. She does not know if she hit her head when she fell. She is a DNR, yellow form on chart CBC/BMP: 11/28/17 0525 11/28/17 0525 Significant Findings Laboratory Tests Test 11/25/17 20:15 11/26/17 13:07 11/26/17 21:05 11/27/17 01:00 B-Type Natriuretic Peptide 160 PG/ML (0-100) Red Blood Count 2.55 MIL/MM3 (4.00-5.30) Hemoglobin 8.1 GM/DL (11.6-15.3) Hematocrit 23.7 % (35.0-46.0) Platelet Count 99 TH/MM3 (150-450) Neutrophils (%) (Auto) 87.3 % (16.0-70.0) Lymphocytes (%) (Auto) 6.6 % (9.0-44.0) Neutrophils # (Auto) 8.4 TH/MM3 (1.8-7.7) Lymphocytes # (Auto) 0.6 TH/MM3 (1.0-4.8) Neutrophils % (Manual) 82 % (16-70) Band Neutrophils % 11 % (0-6) Lymphocytes % 4 % (9-44) Neutrophils # (Manual) 8.9 TH/MM3 (1.8-7.7) Platelet Estimate LOW (NORMAL) Random Glucose 108 MG/DL (74-106) Calcium Level 8.1 MG/DL (8.5-10.1) Anion Gap 4 MEQ/L (5-15) Estimat Glomerular Filtration Rate 70 ML/MIN (>89) Lactic Acid Level 2.9 mmol/L (0.4-2.0) Test 11/27/17 05:10 11/28/17 05:25 Red Blood Count 2.08 MIL/MM3 (4.00-5.30) 2.73 MIL/MM3 (4.00-5.30) Hemoglobin 6.5 GM/DL (11.6-15.3) 8.2 GM/DL (11.6-15.3) Hematocrit 19.1 % (35.0-46.0) 23.5 % (35.0-46.0) Platelet Count 74 TH/MM3 (150-450) 71 TH/MM3 (150-450) Neutrophils (%) (Auto) 79.1 % (16.0-70.0) 71.6 % (16.0-70.0) Lymphocytes # (Auto) 0.7 TH/MM3 (1.0-4.8) 0.8 TH/MM3 (1.0-4.8) Blood Urea Nitrogen 19 MG/DL (7-18) Calcium Level 7.5 MG/DL (8.5-10.1) 7.4 MG/DL (8.5-10.1) Anion Gap 3 MEQ/L (5-15) 2 MEQ/L (5-15) Estimat Glomerular Filtration Rate 75 ML/MIN (>89) Monocytes (%) (Auto) 9.7 % (0.0-8.0) Platelet Estimate LOW (NORMAL) Total Protein 4.9 GM/DL (6.4-8.2) Magnesium Level 2.7 MG/DL (1.5-2.5) Carbon Dioxide Level 32.6 MEQ/L (21.0-32.0) Imaging Last Impressions Hip X-Ray 11/25/17 1548 Signed Impressions: Service Date/Time: November 16:25 - CONCLUSION: Satisfactory post operative appearance of the right hip following hip replacement. Rafita Purdy MD Hip and Pelvis X-Ray 11/25/17 0000 Signed Impressions: Service Date/Time: November 03:06 - CONCLUSION: Right femoral neck fracture. Hernandez Bryson MD Chest X-Ray 11/25/17 0000 Signed Impressions: Service Date/Time: November 17:39 - CONCLUSION: 1. Patchy airspace disease left lung base most characteristic of bronchopneumonia. Aba Villegas MD PE at Discharge GENERAL: This is a well-nourished, well-developed patient, in no apparent distress. CARDIOVASCULAR: Regular rate and rhythm without murmurs, gallops, or rubs. RESPIRATORY: Diminished bases. No wheezes, rales, or rhonchi. GASTROINTESTINAL: Abdomen soft, non-tender, nondistended. MUSCULOSKELETAL: Extremities without clubbing, cyanosis, or edema. Right hip tenderness. No calf tenderness. NEUROLOGICAL: Awake and alert x 1. Motor and sensory grossly within normal limits. Normal speech. Pt update on day of discharge No events overnight. H/H stable Hospital Course 82 y/o female with a history of dementia, depression, htn, hld, irregular heart beat, and copd was brought in from her nursing facility after having a fall. S/p fall with Right femoral neck fracture, subcapital, displaced S/p Right hip bipolar replacement arthroplasty by Dr Tatianna Palmer on 11/25/17 Hip x ray reviewed and shows a right femoral neck fracture. Consult orthopedics Pain management per pain scale Management per ortho PT Anemia postsurgical on chronic iron deficiency anemia, HGB 6.5 on 11/27/17. Transfuse 2 pRBC, pretreat. Hemoglobin 8.2 after monitor H/H. Continue ferrous sulfate po. HTN, chronic-Cont home medications, monitor vitals COPD, chronic -Duonebs joaquín and prn -IS -On Levaquin IV antibiotics, patient with pen allergy, as patient with bronchopneumonia. Satting well on 2 L. - check blood cx Moderate to severe Calorie protein malnutrition: BMI of 16. Add ensure, consult lane attendant DVT prophylaxis: SCDs Code Status DNR Patient improved. Received 2 units of blood postsurgical, hemoglobin is stable. Cleared by orthopedic doctor for discharge. Discharge to SNF in stable condition, to follow-up as outpatient with PCP and consultants. Pt Condition on Discharge: Stable Discharge Disposition: Discharge to SNF Discharge Time: > 30 minutes Discharge Instructions DIET: Follow Instructions for: As Tolerated, No Restrictions Activities you can perform: Weight Bearing as [place] Follow up Referrals: Orthopedics - 2 Weeks PCP Follow-up - 2-3 Days New Medications: Lactobacillus Acidophilus (Lactinex) 1 Chew 1 TAB CHEW DAILY for Nutritional Supplement, #30 TAB 0 Refills Levofloxacin (Levaquin) 750 Mg Tablet 750 MG PO DAILY for Infection, #5 TAB 0 Refills Hydrocodone/Acetaminophen (Hydrocodone-Acetamin 5-325 mg) 5 Mg-325 Mg Tablet 1 TAB PO Q4H PRN for PAIN, #40 TAB Rivaroxaban (Xarelto) 10 Mg Tab 10 MG PO Q24H for Prevent Blood Clot, #25 TAB Continued Medications: Amitriptyline (Amitriptyline) 50 Mg Tab 50 MG PO HS for Control Depression, #30 TAB [address] (Aspirin EC) 81 Mg Tabdr 81 MG PO DAILY, TAB 0 Refills Digoxin (Digoxin) 0.125 Mg Tab 0.125 MG PO DAILY for Regulate Heart Beat, #30 TAB 0 Refills Ferrous Sulfate (Feosol) 325 Mg (65 Mg Iron) Tab 1 TAB PO DAILY for Nutritional Supplement, #30 TAB 0 Refills Fluticasone 12 GM Inh (Flovent Hfa 12 GM Inh) 110 Mcg/Act Inh 2 PUFF INH BID for Asthma Management, #1 INHALER 0 Refills Folic Acid (Folic Acid) 0.8 Mg Tab 800 MCG PO DAILY for Nutritional Supplement, TAB 0 Refills Ipratropium-Albuterol Inh (Combivent Respimat Inh) 20-100 Mcfp/Act Aero 2 PUFF INH BID for Asthma Management, #1 INHALER 0 Refills Ipratropium-Albuterol Neb (Duoneb) 0.5-2.5 Mg/3 Ml Neb 1 NEBULE INH BID for Breathing Treatment, #120 NEBULE 0 Refills Isosorbide Mononitrate ER (Isosorbide Mononitrate ER) 30 Mg Deisy 30 MG PO DAILY for Prevent Chest Pain, #30 TAB 0 Refills Multiple Vitamins W/ Minerals (Thera-M) 1 Tab 1 TAB PO DAILT for Nutritional Supplement, TAB 0 Refills Polyethylene Glycol 3350 Powder (Polyethylene Glycol 3350 Powder) 17 Gram Pow 17 GM PO BID for Constipation, #1 BOTTLE 0 Refills Simvastatin (Simvastatin) 20 Mg Tab 20 MG PO DAILY for Cholesterol Management, #30 TAB 0 Refills Verapamil ER 24 HR (Verapamil ER 24 HR) 240 Mg Tab 120 MG PO HS, #30 TAB 0 Refills [fortified ice cream] () 1 CONTAINER PO DAILY Sapna Saleem MD Nov 28, 2017 12:20
[2017-11-28] MEDS ORDERED: LACTCHW3 CHEW (12:24)
[2017-11-28] MEDS ORDERED: LEVA750T9 PO (12:24)
[2017-11-28] MEDS: RIVAROXABAN 10 MG TAB PO SCH (15:35)
[2017-11-28] MEDS: LEVOFLOXACIN 500 MG PREMIX INJ 100 ML IV SCH (15:35)
[2017-11-28] MEDS: AMITRIPTYLINE HCL 50 MG TAB PO SCH (21:15)
[2017-11-28] MEDS: SENNOSIDES 8.6 MG TAB PO SCH (21:15)
[2017-11-28] MEDS: VERAPAMIL HCL 120 MG SUSTAINED RELEASE TAB PO SCH (21:15)
[2017-11-28] MEDS: SODIUM CHLOR 0.9% 1000 ML INJ 1,000 ML IV SCH (21:17)
[2017-11-29 00:12] VITALS: BP 126/58; PULSE 94; RESP 19; TEMP 96.8; O2SAT 98
[2017-11-29] MEDS: ACETAMINOPHEN/HYDROcodone 325 MG/5 MG TAB PO PRN ×2 (03:36→08:02)
[2017-11-29 04:05] VITALS: BP 131/69; PULSE 94; RESP 18; TEMP 97.9; O2SAT 96
[2017-11-29] MEDS: RESP: ALBUTEROL 2.5 MG/IPRATROPIUM 0.5 MG NEB (SCH) NEB (07:38)
[2017-11-29 07:39] VITALS: O2SAT 97
[2017-11-29 08:00] VITALS: BP 113/62; PULSE 79; RESP 15; TEMP 96.9; O2SAT 98
[2017-11-29] MEDS: guaiFENesin E.R. 600 MG TAB PO SCH (08:01)
[2017-11-29] MEDS: PRAVASTATIN SOD 40 MG TAB PO SCH (08:01)
[2017-11-29] MEDS: DIGOXIN 0.125 MG TAB PO SCH (08:02)
[2017-11-29] MEDS: MAGNESIUM HYDROXIDE SUSP 30 ML CUP PO SCH (08:02)
[2017-11-29] MEDS: FERROUS SULFATE 325 MG (65 MG ELEMENTAL IRON) TAB PO SCH (08:05)
[2017-11-29 12:00] VITALS: BP 116/59; PULSE 98; RESP 14; TEMP 96.6; O2SAT 91
--- NOTE | 2017-11-29 13:21 | HHI.PR ---
Objective Vitals Vital Signs Date Time Temp Pulse Resp B/P (MAP) Pulse Ox O2 Delivery O2 Flow Rate FiO2 11/29/17 08:00 96.9 79 15 113/62 (79) 98 11/29/17 07:39 97 Nasal Cannula 3.00 11/29/17 04:05 97.9 94 18 131/69 (89) 96 11/29/17 00:12 96.8 94 19 126/58 (80) 98 11/28/17 19:45 97.8 115 18 121/58 (79) 97 11/28/17 19:08 114 11/28/17 19:07 Nasal Cannula 2.00 11/28/17 19:00 91 Nasal Cannula 3.00 11/28/17 16:00 96.6 100 18 125/67 (86) 98 I/O 11/28/17 11/28/17 11/28/17 11/29/17 11/29/17 11/29/17 07:00 15:00 23:00 07:00 15:00 23:00 Intake Total 240 ml 360 ml 240 ml 240 ml Output Total 250 ml 400 ml 250 ml 250 ml Balance -10 ml -40 ml -10 ml -10 ml Intake Oral 240 ml 360 ml 240 ml 240 ml Output Urine Total 250 ml 400 ml 250 ml 250 ml Bladder Scan Volume Amount 350 ml # Bowel Movements 0 0 0 0 Result Diagram: 11/28/1752411/28/17524 Objective Remarks GENERAL: This is a well-nourished, well-developed patient, in no apparent distress. CARDIOVASCULAR: Regular rate and rhythm without murmurs, gallops, or rubs. RESPIRATORY: Diminished bases. No wheezes, rales, or rhonchi. GASTROINTESTINAL: Abdomen soft, non-tender, nondistended. MUSCULOSKELETAL: Extremities without clubbing, cyanosis, or edema. Right hip tenderness. No calf tenderness. NEUROLOGICAL: Awake and alert x 1. Motor and sensory grossly within normal limits. Normal speech. Procedures S/p fall with Right femoral neck fracture, subcapital, displaced S/p Right hip bipolar replacement arthroplasty by Dr Tatianna Palmer on 11/25/17 A/P Problem List: (1) Closed right hip fracture ICD Code: S72.001A - Fracture of unspecified part of neck of right femur, initial encounter for closed fracture Status: Acute (2) HTN (hypertension) ICD Code: I10 - Essential (primary) hypertension Status: Chronic (3) COPD (chronic obstructive pulmonary disease) ICD Code: J44.9 - Chronic obstructive pulmonary disease, unspecified Status: Chronic Assessment and Plan 82 y/o female with a history of dementia, depression, htn, hld, irregular heart beat, and copd was brought in from her nursing facility after having a fall. S/p fall with Right femoral neck fracture, subcapital, displaced S/p Right hip bipolar replacement arthroplasty by Dr Tatianna Palmer on 11/25/17 Hip x ray reviewed and shows a right femoral neck fracture. Consult orthopedics Pain management per pain scale Management per ortho PT Anemia postsurgical on chronic iron deficiency anemia, HGB 6.5 on 11/27/17. Transfuse 2 pRBC, pretreat. Monitor H/H. Continue ferrous sulfate po. HTN, chronic-Cont home medications, monitor vitals COPD, chronic -Duonebs joaquín and prn -IS - Start Azithromycin and Rocephine patient with bronchopneumonia - check blood cx Moderate to severe Calorie protein malnutrition: BMI of 16. Add ensure, consult blister packaging machine operator DVT prophylaxis: SCDs Code Status DNR Discussed Condition With Patient, nurse Problem Qualifiers (1) Closed right hip fracture: Qualified Codes: S72.001A - Fracture of unspecified part of neck of right femur , initial encounter for closed fracture (2) HTN (hypertension): Qualified Codes: I10 - Essential (primary) hypertension (3) COPD (chronic obstructive pulmonary disease): Qualified Codes: J44.9 - Chronic obstructive pulmonary disease, unspecified Sapna Saleem MD Nov 29, 2017 13:21
[2017-11-29] MEDS: RIVAROXABAN 10 MG TAB PO SCH (13:55)
== END 2017-11-29 14:31 | DRG 469 ==
LOC: NEPE 02:40 → NEDA 04:01 → N06A 13:05
PROVIDERS: ADMIT Hospitalist; ATTEND Hospitalist
PROC: 0SRR0J9 Replacement of Right Hip Joint, Femoral Surface with Synthetic Substitute, Cemented, Open Approach (ICD-10-PCS; principal; 2017-11-25 14:20)
PROC: 30233N1 Transfusion of Nonautologous Red Blood Cells into Peripheral Vein, Percutaneous Approach (ICD-10-PCS; 2017-11-27)
DX: S72.011A Unspecified intracapsular fracture of right femur, initial encounter for closed fracture (principal); J18.0 Bronchopneumonia, unspecified organism; E43 Unspecified severe protein-calorie malnutrition; J44.0 Chronic obstructive pulmonary disease with (acute) lower respiratory infection; F03.90 Unspecified dementia, unspecified severity, without behavioral disturbance, psychotic disturbance, mood disturbance, and anxiety; Z68.1 Body mass index [BMI] 19.9 or less, adult; I10 Essential (primary) hypertension; E78.5 Hyperlipidemia, unspecified; D50.9 Iron deficiency anemia, unspecified; F32.9 Major depressive disorder, single episode, unspecified; W19.XXXA Unspecified fall, initial encounter; Y92.129 Unspecified place in nursing home as the place of occurrence of the external cause; Z66 Do not resuscitate; Z79.01 Long term (current) use of anticoagulants; Z88.1 Allergy status to other antibiotic agents
CPT/HCPCS: 36430; 51702; 71045; 73502; 80048; 80053; 81001; 83605; 83690; 83735; 83880; 84155; 84484; 85007; 85025; 85027; 85610; 85730; 86077; 86850; 86870; 86900; 86901; 86902; 86920; 86922; 87040; 93005; 94150; 94640; 94664; C1776; J0690; J1580; J1885; J1940; J1956; J2270; J2370; J2405; J2710; J3370; J7030; J7050; J7120; J7613; P9016

== ENCOUNTER 2017-12-06 09:36 | Emergency (ER) | payer MEDICARE, OTHER ==
[~2017-12-06] VITALS: Ht 165.1 cm; Wt 45.0 kg
[~2017-12-06 09:36] MED LIST: AMIT50TA3 PO; ASPI81TA23 PO; DIGO0.12 PO; FERR200T PO; FLUTI110I INH; FOLI800T PO; HYDR-3516 PO; IPRAAER INH; IPRASOL INH; ISOS30TA3 PO; LACTCHW3 CHEW; LEVA750T9 PO; POLY17S PO; SIMV20TA PO; THERTAB17 PO; VERA1TAB17 PO; XARE10TA PO; [UNRECOGNIZED DRUG - OTHER] PO
[2017-12-06 09:52] VITALS: BP 166/81; PULSE 96; RESP 18; TEMP 98.4; O2SAT 100
--- NOTE | 2017-12-06 10:09 | PD ---
HPI Chief Complaint: Fall Time Seen by Provider: 09:45 Travel History International Travel<30 days: No Contact w/Intl Traveler<30days: No Traveled to known affect area: No History of Present Illness HPI 82 year-old female presents to the emergency room from a long term for evaluation after mechanical fall. Patient fell out of her wheelchair this morning. No known loss of consciousness. She is only oriented to place. Baseline Zach Coma Scale of 13 or 14. She reports pain "everywhere" but denies headache or facial pain. Facility sent her because she is on Xarelto and aspirin. She has a small abrasion to her right eyelid and right lateral leg. PFSH Past Medical History Anemia: Yes Depression: Yes Heart Rhythm Problems: Yes Cardiovascular Problems: Yes High Cholesterol: Yes COPD: Yes Cerebrovascular Accident: Yes (2 aneurysm clamped) Coronary Artery Disease: Yes Dementia: Yes GERD: Yes Hypertension: Yes Neurologic: Yes (dementia) Respiratory: Yes Integumentary: Yes Social History Alcohol Use: No Tobacco Use: No Substance Use: No Allergies-Medications (Allergen,Severity, Reaction): Coded Allergies: amoxicillin (Verified Allergy, Unknown, 11/25/17) cefuroxime (Verified Allergy, Unknown, 11/25/17) cilostazol (Verified Allergy, Unknown, 11/25/17) clavulanic acid (Verified Allergy, Unknown, 11/25/17) lisinopril (Verified Allergy, Unknown, 11/25/17) Reported Meds & Prescriptions Reported Meds & Active Scripts Active Macrobid (Nitrofurantoin Monohydrate Macrocrystals) 100 Mg Capsule 100 Mg PO BID 7 Days Lactinex (Lactobacillus Acidophilus) 1 Chew 1 Tab CHEW DAILY Hydrocodone-Acetamin 5-325 mg (Hydrocodone/Acetaminophen) 5 Mg-325 Mg Tablet 1 Tab PO Q4H PRN Xarelto (Rivaroxaban) 10 Mg Tab 10 Mg PO Q24H Reported Furosemide 20 Mg Tab 20 Mg PO DAILY Dulcolax Supp (Bisacodyl) 10 Mg Supp 10 Mg RECTAL DAILY PRN Isosorbide Mononitrate ER (Isosorbide Mononitrate) 30 Mg Deisy 30 Mg PO DAILY Polyethylene Glycol 3350 Powder (Polyethylene Glycol) 17 Gram Pow 17 Gm PO BID Flovent Hfa 12 GM Inh (Fluticasone Propionate) 110 Mcg/Act Inh 2 Puff INH BID Duoneb (Ipratropium-Albuterol Neb) 0.5-2.5 Mg/3 Ml Neb 1 Nebule INH BID Combivent Respimat Inh (Ipratropium-Albuterol Inh) 20-100 Custodial/Act Aero 2 Puff INH BID Verapamil ER 24 HR (Verapamil HCl) 240 Mg Tab 120 Mg PO HS Thera-M (Multiple Vitamins W/ Minerals) 1 Tab 1 Tab PO DAILT Simvastatin 20 Mg Tab 20 Mg PO DAILY [fortified ice cream] 1 Container PO DAILY Folic Acid 0.8 Mg Tab 800 Mcg PO DAILY Feosol (Ferrous Sulfate) 325 Mg (65 Mg Iron) Tab 1 Tab PO DAILY Aspirin EC (Aspirin) 81 Mg Tabdr 81 Mg PO DAILY Digoxin 0.125 Mg Tab 0.125 Mg PO DAILY Amitriptyline (Amitriptyline HCl) 50 Mg Tab 50 Mg PO HS Review of Systems Except as stated in HPI: all other systems reviewed are Neg Physical Exam Narrative GENERAL: Elderly looking female in no acute distress. Afebrile. SKIN: Focused skin assessment warm/dry. Significant but old appearing ecchymosis of the right lower extremity. There is a small 2 mm abrasion to the right upper eyelid. There are 2 superficial skin tears to the right lateral lower leg. HEAD: Normocephalic. Moderate edema of the right cheek. EYES: No scleral icterus. No injection or drainage. NECK: Supple, trachea midline. No JVD or lymphadenopathy. CARDIOVASCULAR: Regular rate and rhythm without murmurs, gallops, or rubs. RESPIRATORY: Breath sounds equal bilaterally. No accessory muscle use. MUSCULOSKELETAL: No cyanosis. Moderate edema of the right lower extremity. Data Data Last Documented VS Vital Signs Date Time Temp Pulse Resp B/P (MAP) Pulse Ox O2 Delivery O2 Flow Rate FiO2 12/06/17 09:52 98.4 96 18 166/81 (109) [address] Facial Bones W/O Iv Cont (12/06/17 ) Ct Brain W/O Iv Contrast(Rout) (12/06/17 ) Urinalysis - C+S If Indicated (12/06/17 09:56) Urine Culture (12/06/17 10:15) Ed Discharge Order (12/06/17 11:29) Labs Laboratory Tests Test 12/06/17 10:15 Urine Color LIGHT-RED Urine Turbidity HAZY Urine pH 5.5 Urine Specific [place] 1.020 Urine Protein 30 mg/dL Urine Glucose (UA) NEG mg/dL Urine Ketones NEG mg/dL Urine Occult Blood LARGE Urine Nitrite NEG Urine Bilirubin NEG Urine Urobilinogen LESS THAN 2.0 MG/DL Urine Leukocyte Esterase MOD Urine RBC /hpf Urine WBC 29 /hpf Urine WBC Clumps RARE Urine Bacteria OCC /hpf Urine Hyaline Casts 6 /lpf Microscopic Urinalysis Comment CATH-CULTURE IND MDM Medical Decision Making Medical Screen Exam Complete: Yes Emergency Medical Condition: Yes Medical Record Reviewed: Yes Differential Diagnosis Laceration, abrasion, contusion, skin tear, head injury, brain bleed Narrative Course 82-year-old female presents to the emergency room from nursing facility for evaluation of head injury that occurred just prior to arrival. Patient slipped out of her oversized wheelchair and fell forward striking her face. No loss of consciousness. Patient is only oriented to place and keeps mumbling and asking "when am I going to go home." She was transferred because she hit her head and is on Xarelto and aspirin. Denies significant headache. Physical exam reveals mild laceration and skin tears to the right upper eyelid and right lateral leg. Lacerations were thoroughly cleansed and then repaired with Dermabond. CT of the brain and face are negative for acute abnormality. UA shows evidence of infection for which patient will be treated with Macrobid. Patient is stable for discharge back to facility. Diagnosis Primary Impression: Facial laceration Qualified Codes: S01.81XA - Laceration without foreign body of other part of head, initial encounter Additional Impressions: Skin tear of lower leg without complication Qualified Codes: S81.811A - Laceration without foreign body, right lower leg, initial encounter Urinary tract infection Qualified Codes: N30.01 - Acute cystitis with hematuria Referrals: Primary Care Physician Additional Instructions: Macrobid as directed, until gone. Follow-up with a primary care physician. Return for worsening symptoms. Scripts Nitrofurantoin Monohydrate Macrocrystals (Macrobid) 100 Mg Capsule 100 MG PO BID for Infection for 7 Days, #14 CAP 0 Refills Prov: Vincent Lopez MD 12/06/17 Disposition: DISCHARGE HOME Condition: Stable Marce Morrison Dec 06, 2017 10:09
[2017-12-06] MEDS ORDERED: DULC10SU3 RECTAL (10:24)
[2017-12-06] MEDS ORDERED: FURO20TA PO (10:24)
--- NOTE | 2017-12-06 10:43 | RADRPT ---
EXAM DATE/TIME: 12/06/2017 10:19 [facility] COMPARISON: No previous studies available for comparison. INDICATIONS : Fell from wheelchair, laceration to right eye lid. RADIATION DOSE: 36.07 CTDIvol (mGy) MEDICAL HISTORY : Dementia. Cardiovascular disease Hypertension.Anemia, Colon cancer. SURGICAL HISTORY : 2 Aneurysm clips ENCOUNTER: Initial ACUITY: 1 day PAIN SCORE: 4/10 LOCATION: Bilateral facial TECHNIQUE: Volumetric scanning of the facial bones was performed. Using automated exposure control and adjustme nt of the mA and/or kV according to patient size, radiation dose was kept as low as reasonably achiev able to obtain optimal diagnostic quality images. DICOM format image data is available electronicall y for review and comparison. FINDINGS: Craniotomy for previous aneurysm repair on the left. Minimal soft tissue swelling right orbit. Orbital rim intact. Maxillary sinuses are clear. Mandible, maxilla and zygomatic arch intact CONCLUSION: Minimal soft tissue swelling the right orbit No fracture Devon Garcia MD FACR on December 06, 2017 at 10:39 Board Certified Radiologist. This report was verified electronically.
--- NOTE | 2017-12-06 10:44 | RADRPT ---
EXAM DATE/TIME: 12/06/2017 10:19 [facility] COMPARISON: No previous studies available for comparison. INDICATIONS : Fell from wheelchair, laceration to right eyelid. RADIATION DOSE: 45.79 CTDIvol (mGy) MEDICAL HISTORY : Dementia. Cardiovascular disease Hypertension.Anemia, Colon cancer SURGICAL HISTORY : 2 Aneurysm clips ENCOUNTER: Initial ACUITY: 1 day PAIN SCALE: 4/10 LOCATION: Bilateral facial TECHNIQUE: Multiple contiguous axial images were obtained of the head. Using automated exposure control and adj ustment of the mA and/or kV according to patient size, radiation dose was kept as low as reasonably a chievable to obtain optimal diagnostic quality images. DICOM format image data is available electro nically for review and comparison. FINDINGS: Previous aneurysm clipping on the left with encephalomalacia left temporal region. Moderate perivent ricular white matter changes. Lacunar infarct basalganglia left side Ventricular size appropriate for this degree of atrophy. Posterior fossa normal. 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 Devon Garcia MD FACR on December 06, 2017 at 10:42 Board Certified Radiologist. This report was verified electronically.
[2017-12-06 10:47] LABS: BACTERIA, URINE OCC /hpf; BILIRUBIN, URINE NEG (NEG); BLOOD, URINE LARGE (NEG); GLUCOSE,URINE NEG (NEG); HYALINE CAST, URINE 6 /lpf (RARE); KETONE, URINE NEG (NEG); NITRITE,URINE NEG (NEG); PH, URINE 5.5 (5.0-8.5); URINE COLOR LIGHT-RED (YELLW/STRAW); URINE LEUKOCYTE ESTERASE MOD (NEG); WHITE BLOOD CELL CLUMPS RARE
[2017-12-06] MEDS ORDERED: MACR100C2 PO (11:05)
== END 2017-12-06 14:46 | disposition home or self-care (01) ==
LOC: NEPD 09:36
DX: S01.81XA Laceration without foreign body of other part of head, initial encounter (principal); S81.811A Laceration without foreign body, right lower leg, initial encounter; N30.01 Acute cystitis with hematuria; E78.00 Pure hypercholesterolemia, unspecified; J44.9 Chronic obstructive pulmonary disease, unspecified; F03.90 Unspecified dementia, unspecified severity, without behavioral disturbance, psychotic disturbance, mood disturbance, and anxiety; I10 Essential (primary) hypertension; I25.10 Atherosclerotic heart disease of native coronary artery without angina pectoris; W05.0XXA Fall from non-moving wheelchair, initial encounter; Y92.129 Unspecified place in nursing home as the place of occurrence of the external cause; Z79.01 Long term (current) use of anticoagulants
CPT/HCPCS: 12001; 12011; 70450; 70486; 81001; 87077; 87086; 87186

== ENCOUNTER 2017-12-27 16:13 | Observation (INO) | payer MEDICARE, OTHER ==
[2017-12-27] VITALS (8 sets, daily range): BP systolic 105–137; BP diastolic 58–79; PULSE 82–107; RESP 15–20; TEMP 96.8–98.4; O2SAT 95–100
[~2017-12-27 16:13] MED LIST changes: +DULC10SU3 RECTAL; +FURO20TA PO; -LEVA750T9 PO; +MACR100C2 PO
[2017-12-27] MEDS ORDERED: SODIUM CHLOR 0.9% 250 ML INJ 250 ML IV ONE ×2 (17:30→18:15)
[2017-12-27 17:33] LABS: AUTOMATED NEUTROPHIL # 2.5 TH/MM3 (1.8-7.7); BASOPHIL % 0.3 % (0.0-2.0); EOSINOPHIL % 0.5 % (0.0-4.0); LYMPH % 28.7 % (9.0-44.0); LYMPHOCYTE # 1.2 TH/MM3 (1.0-4.8); MEAN CELL VOLUME 101.1 FL (80.0-100.0); MEAN PLATELET VOLUME 8.8 FL (7.0-11.0); MONO % 8.9 % (0.0-8.0); MONOCYTE # 0.4 TH/MM3 (0-0.9); NEUT % 61.6 % (16.0-70.0); PLATELET COUNT 191 TH/MM3 (150-450); RED BLOOD COUNT 1.68 MIL/MM3 (4.00-5.30); RED CELL DISTRIBUTION WIDTH 22.6 % (11.6-17.2)
[2017-12-27 17:36] LABS: MEAN CORPUSCULAR HGB CONC 28.6 % (32.0-36.0)
[2017-12-27 17:42] LABS: HEMOGLOBIN 4.9 GM/DL (11.6-15.3)
[2017-12-27 17:44] LABS: BICARBONATE 27.3 MEQ/L (21.0-32.0); CALCIUM 7.7 MG/DL (8.5-10.1); CREATININE 0.69 MG/DL (0.50-1.00); INTERNATIONAL NORMALIZED RATIO 1.1 RATIO; PROTHROMBIN TIME - PATIENT 10.7 SEC (9.8-11.6)
[2017-12-27 18:11] LABS: POLYCHROMASIA 3.2 % (0.0-1.9)
[2017-12-27 18:12] LABS: TEARDROP RBCS 1+ (NORMAL)
--- NOTE | 2017-12-27 18:14 | PD ---
Physical Exam Date Seen by Provider: Dec 27, 2017 Time Seen by Provider: 17:00 Narrative I, Dr. Olivo, have reviewed the advance practice practitioner's documentation and am in agreement, met with the patient face to face, made the diagnosis, and the medical decision making was done by me. *My assessment and Findings: Patient seen and evaluated with PA, please see PA notes for further details. She has been sent in because of severe anemia, and confirmation lab work was done which shows that her hemoglobin is 4. She has previous history of anemia although it is not known whether there is a obvious source of bleeding. Rectal exam has been done by PA and Hemoccult was negative. Patient is mildly tachycardic but the rest of the vital signs are stable in the ER. Plan would be to admit her for further treatment and blood transfusion. Data Data Last Documented VS Vital Signs Date Time Temp Pulse Resp B/P (MAP) Pulse Ox O2 Delivery O2 Flow Rate FiO2 12/27/17 16:44 98.0 107 15 123/79 (94) 99 Orders Orders Complete Blood Count With Diff (12/27/17 16:52) Basic Metabolic Panel (Bmp) (12/27/17 16:52) Prothrombin Time / Inr (Pt) (12/27/17 16:52) Act Partial Throm Time (Ptt) (12/27/17 16:52) Type And Screen (12/27/17 16:52) Red Blood Cells (Rbc) (12/27/17 17:19) Blood Product Administration (12/27/17 17:19) Sodium Chlor 0.9% 250 Ml Inj (Ns 250 Ml (12/27/17 17:30) Admit Order (Ed Use Only) (12/27/17 18:10) Labs Laboratory Tests Test 12/27/17 17:04 White Blood Count 4.0 TH/MM3 Red Blood Count 1.68 MIL/MM3 Hemoglobin 4.9 GM/DL Hematocrit 17.0 % Mean Corpuscular Volume 101.1 FL Mean Corpuscular Hemoglobin 29.0 PG Mean Corpuscular Hemoglobin Concent 28.6 % Red Cell Distribution Width 22.6 % Platelet Count 191 TH/MM3 Mean Platelet Volume 8.8 FL Neutrophils (%) (Auto) 61.6 % Lymphocytes (%) (Auto) 28.7 % Monocytes (%) (Auto) 8.9 % Eosinophils (%) (Auto) 0.5 % Basophils (%) (Auto) 0.3 % Neutrophils # (Auto) 2.5 TH/MM3 Lymphocytes # (Auto) 1.2 TH/MM3 Monocytes # (Auto) 0.4 TH/MM3 Eosinophils # (Auto) 0.0 TH/MM3 Basophils # (Auto) 0.0 TH/MM3 CBC Comment AUTO DIFF Differential Comment AUTO DIFF CONFIRMED Platelet Estimate NORMAL Platelet Morphology Comment NORMAL Polychromasia 3.2 % Tear Drop Cells 1+ Prothrombin Time 10.7 SEC Prothromb Time International Ratio 1.1 RATIO Activated Partial Thromboplast Time 23.9 SEC Blood Urea Nitrogen 17 MG/DL Creatinine 0.69 MG/DL Random Glucose 92 MG/DL Calcium Level 7.7 MG/DL Sodium Level 144 MEQ/L Potassium Level 3.6 MEQ/L Chloride Level 110 MEQ/L Carbon Dioxide Level 27.3 MEQ/L Anion Gap 7 MEQ/L Estimat Glomerular Filtration Rate 81 ML/MIN [facility] Medical Record Reviewed: Yes Supervised Visit with SHASTA: Yes Diagnosis Primary Impression: Severe anemia Admitting Information Admitting Physician Requests: Admit Delia Olivo MD Dec 27, 2017 18:14
[2017-12-27] MEDS ORDERED: FUROSEMIDE 20 MG/2 ML VIAL IV PUSH ONE (18:15)
--- NOTE | 2017-12-27 18:21 | PD ---
HPI Chief Complaint: Abnormal Results Time Seen by Provider: 17:05 Travel History International Travel<30 days: No Contact w/Intl Traveler<30days: No Traveled to known affect area: No History of Present Illness HPI 82-year-old female that presents to the ED for evaluation of low hemoglobin. Per patient she was seen at her rehabilitation facility and had pulse ox that showed that she had a low hemoglobin. Per daughter who is with the patient the hemoglobin was for and they were told to come here to get a transfusion. Patient has a history of chronic iron deficiency and questionable whether she is taking her iron. Per her daughter this happened once before when they stopped her iron to limit the amount of pills that she takes and then she got anemic anemia transfusion. Per patient she does not take any blood thinners at this time. She did have a right hip fracture was some blood thinners at the time required transfusion during that admission. She denies any other medical issues. No headache. She states feeling weak and sleepy. She does appear to be pale on exam. She states having some pain in her right hip that comes and goes. Denies any numbness, tingling, weakness. No chest pain or shortness of breath. No nausea or vomiting. No changes in bowel movement. PFSH Past Medical History Anemia: Yes Atrial Fibrillation: Yes Depression: Yes Heart Rhythm Problems: Yes Cardiovascular Problems: Yes High Cholesterol: Yes COPD: Yes Cerebrovascular Accident: Yes (2 aneurysm clamped) Coronary Artery Disease: Yes Dementia: Yes GERD: Yes Hypertension: Yes Neurologic: Yes (dementia) Respiratory: Yes Integumentary: Yes Social History Alcohol Use: No Tobacco Use: No Substance Use: No Allergies-Medications (Allergen,Severity, Reaction): Coded Allergies: amoxicillin (Verified Allergy, Unknown, 12/27/17) cefuroxime (Verified Allergy, Unknown, 12/27/17) cilostazol (Verified Allergy, Unknown, 12/27/17) clavulanic acid (Verified Allergy, Unknown, 12/27/17) lisinopril (Verified Allergy, Unknown, 12/27/17) Reported Meds & Prescriptions Reported Meds & Active Scripts Active Lactinex (Lactobacillus Acidophilus) 1 Chew 1 Tab CHEW DAILY Hydrocodone-Acetamin 5-325 mg (Hydrocodone/Acetaminophen) 5 Mg-325 Mg Tablet 1 Tab PO Q4H PRN Reported Furosemide 20 Mg Tab 20 Mg PO DAILY Dulcolax Supp (Bisacodyl) 10 Mg Supp 10 Mg RECTAL DAILY PRN Isosorbide Mononitrate ER (Isosorbide Mononitrate) 30 Mg Deisy 30 Mg PO DAILY Polyethylene Glycol 3350 Powder (Polyethylene Glycol) 17 Gram Pow 17 Gm PO BID Flovent Hfa 12 GM Inh (Fluticasone Propionate) 110 Mcg/Act Inh 2 Puff INH BID Duoneb (Ipratropium-Albuterol Neb) 0.5-2.5 Mg/3 Ml Neb 1 Nebule INH BID Combivent Respimat Inh (Ipratropium-Albuterol Inh) 20-100 Fdc/Act Aero 2 Puff INH BID Verapamil ER 24 HR (Verapamil HCl) 240 Mg Tab 120 Mg PO HS Thera-M (Multiple Vitamins W/ Minerals) 1 Tab 1 Tab PO DAILT Simvastatin 20 Mg Tab 20 Mg PO DAILY Folic Acid 0.8 Mg Tab 800 Mcg PO DAILY Feosol (Ferrous Sulfate) 325 Mg (65 Mg Iron) Tab 1 Tab PO DAILY Aspirin EC (Aspirin) 81 Mg Tabdr 81 Mg PO DAILY Digoxin 0.125 Mg Tab 0.125 Mg PO DAILY Amitriptyline (Amitriptyline HCl) 50 Mg Tab 50 Mg PO HS Review of Systems Except as stated in HPI: all other systems reviewed are Neg Physical Exam Narrative GENERAL: SKIN: Warm and dry. Paleness noted. Patient has states she wants a stage II pressure ulcers to the buttocks bilaterally. No sign of erythema or mass but definite pinkies and breaking of the skin noted. About less than 1 cm in diameter where the breaking of the skin is present HEAD: Atraumatic. Normocephalic. EYES: Pupils equal and round 4 mm reactive to light and accommodation. No scleral icterus. No injection or drainage. ENT: No nasal bleeding or discharge. Mucous membranes pink and moist. Tongue is midline. No uvula deviation. NECK: Trachea midline. No JVD. CARDIOVASCULAR: Regular rate and rhythm. No murmurs, S3, S4. RESPIRATORY: No accessory muscle use. Clear to auscultation. Breath sounds equal bilaterally. GASTROINTESTINAL: Abdomen soft, non-tender, nondistended. Hepatic and splenic margins not palpable. MUSCULOSKELETAL: Extremities without clubbing, cyanosis, or edema. No obvious deformities. Full range of motion of the upper and lower extremity is bilaterally. 2+ pulses bilaterally. NEUROLOGICAL: Awake and alert. No obvious cranial nerve deficits. Motor grossly within normal limits. Five out of 5 muscle strength in the arms and legs. Normal speech. PSYCHIATRIC: Appropriate mood and affect; insight and judgment normal. Data Data Last Documented VS Vital Signs Date Time Temp Pulse Resp B/P (MAP) Pulse Ox O2 Delivery O2 Flow Rate FiO2 12/27/17 16:44 98.0 107 15 123/79 (94) 99 Orders Orders Complete Blood Count With Diff (12/27/17 16:52) Basic Metabolic Panel (Bmp) (12/27/17 16:52) Prothrombin Time / Inr (Pt) (12/27/17 16:52) Act Partial Throm Time (Ptt) (12/27/17 16:52) Type And Screen (12/27/17 16:52) Red Blood Cells (Rbc) (12/27/17 17:19) Blood Product Administration (12/27/17 17:19) Sodium Chlor 0.9% 250 Ml Inj (Ns 250 Ml (12/27/17 17:30) Admit Order (Ed Use Only) (12/27/17 18:10) Red Blood Cells (Rbc) (12/27/17 18:15) Sodium Chlor 0.9% 250 Ml Inj (Ns 250 Ml (12/27/17 18:15) Furosemide Inj (Lasix Inj) (12/27/17 18:15) Labs Laboratory Tests Test 12/27/17 17:04 White Blood Count 4.0 TH/MM3 Red Blood Count 1.68 MIL/MM3 Hemoglobin 4.9 GM/DL Hematocrit 17.0 % Mean Corpuscular Volume 101.1 FL Mean Corpuscular Hemoglobin 29.0 PG Mean Corpuscular Hemoglobin Concent 28.6 % Red Cell Distribution Width 22.6 % Platelet Count 191 TH/MM3 Mean Platelet Volume 8.8 FL Neutrophils (%) (Auto) 61.6 % Lymphocytes (%) (Auto) 28.7 % Monocytes (%) (Auto) 8.9 % Eosinophils (%) (Auto) 0.5 % Basophils (%) (Auto) 0.3 % Neutrophils # (Auto) 2.5 TH/MM3 Lymphocytes # (Auto) 1.2 TH/MM3 Monocytes # (Auto) 0.4 TH/MM3 Eosinophils # (Auto) 0.0 TH/MM3 Basophils # (Auto) 0.0 TH/MM3 CBC Comment AUTO DIFF Differential Comment AUTO DIFF CONFIRMED Platelet Estimate NORMAL Platelet Morphology Comment NORMAL Polychromasia 3.2 % Tear Drop Cells 1+ Prothrombin Time 10.7 SEC Prothromb Time International Ratio 1.1 RATIO Activated Partial Thromboplast Time 23.9 SEC Blood Urea Nitrogen 17 MG/DL Creatinine 0.69 MG/DL Random Glucose 92 MG/DL Calcium Level 7.7 MG/DL Sodium Level 144 MEQ/L Potassium Level 3.6 MEQ/L Chloride Level 110 MEQ/L Carbon Dioxide Level 27.3 MEQ/L Anion Gap 7 MEQ/L Estimat Glomerular Filtration Rate 81 ML/MIN MDM Medical Decision Making Medical Screen Exam Complete: Yes Emergency Medical Condition: Yes Medical Record Reviewed: Yes Interpretation(s) CBC & BMP Diagram 12/27/17 17:04 Calcium Level 7.7 L Differential Diagnosis Anemia versus symptomatic anemia versus bleeding Narrative Course 82-year-old female that presents to the ED for evaluation of symptom like anemia. Patient was properly examined and was found to have signs and symptoms consistent with appears to be symptomatic anemia. Patient did have a hemoglobin of 4.8 here. This time recommendation is for 4 units of blood. Patient will be admitted for this. Family and patient agree with this. Hemoccult here was negative. No sign of active bleeding at this time as the patient does appear to have some skin ulcers to her buttocks. Will treat here with blood. Case discussed with Dr. Shi who agrees to admission. [facility] Internal Pos. & Neg. Controls: Passed Fecal Specimen Occult Blood: Negative Diagnosis Primary Impression: Severe anemia Additional Impression: Ulcer, pressure Qualified Codes: L89.312 - Pressure ulcer of right buttock, stage 2 Admitting Information Admitting Physician Requests: Observation Tu Quinones Dec 27, 2017 18:21
[2017-12-27] MEDS ORDERED: NALOXONE HCL 0.4 MG/ML AMP IV PUSH PRN (19:45)
[2017-12-27] MEDS ORDERED: SODIUM CHLORIDE 0.9% FLUSH 10 ML FLUSH IV FLUSH PRN (19:45)
[2017-12-27] MEDS ORDERED: ONDANSETRON HCL 4 MG/2 ML VIAL IVP PRN (19:45)
[2017-12-27] MEDS ORDERED: ACETAMINOPHEN 325 MG TAB PO PRN (19:45)
[2017-12-27] MEDS ORDERED: BISACODYL 10 MG SUPP RECTAL PRN (19:45)
[2017-12-27] MEDS ORDERED: COMBIVENT RESPIMAT INH SCH (21:00)
[2017-12-27] MEDS: SODIUM CHLORIDE 0.9% FLUSH 10 ML FLUSH IV FLUSH SCH (22:48)
[2017-12-27] MEDS: POLYETHYLENE GLYCOL 17 GM PKG PO SCH (23:00)
[2017-12-27] MEDS: FLUTICASONE PROPIONATE 110 MCG/ACT 12 GM INHALER INH SCH (23:03)
[2017-12-27] MEDS: AMITRIPTYLINE HCL 50 MG TAB PO SCH (23:04)
[2017-12-27] MEDS: VERAPAMIL HCL 120 MG SUSTAINED RELEASE TAB PO SCH (23:04)
[2017-12-28] VITALS (8 sets, daily range): BP systolic 127–145; BP diastolic 60–74; PULSE 79–112; RESP 16–20; TEMP 97.5–98; O2SAT 95–97
[2017-12-28] MEDS ORDERED: FUROSEMIDE 20 MG/2 ML VIAL IV PUSH SCH (02:45)
[2017-12-28 07:31] LABS: AUTOMATED NEUTROPHIL # 4.6 TH/MM3 (1.8-7.7); BASOPHIL % 0.4 % (0.0-2.0); EOSINOPHIL % 0.4 % (0.0-4.0); HEMATOCRIT 25.5 % (35.0-46.0); HEMOGLOBIN 8.4 GM/DL (11.6-15.3); LYMPH % 13.2 % (9.0-44.0); LYMPHOCYTE # 0.8 TH/MM3 (1.0-4.8); MEAN CELL VOLUME 89.3 FL (80.0-100.0); MEAN CORPUSCULAR HEMOGLOBIN 29.4 PG (27.0-34.0); MEAN CORPUSCULAR HGB CONC 32.9 % (32.0-36.0); MEAN PLATELET VOLUME 8.8 FL (7.0-11.0); MONOCYTE # 0.5 TH/MM3 (0-0.9); PLATELET COUNT 185 TH/MM3 (150-450); RED BLOOD COUNT 2.85 MIL/MM3 (4.00-5.30); RED CELL DISTRIBUTION WIDTH 19.9 % (11.6-17.2); WHITE BLOOD COUNT 5.9 TH/MM3 (4.0-11.0)
[2017-12-28 08:19] LABS: BICARBONATE 27.5 MEQ/L (21.0-32.0); CALCIUM 7.5 MG/DL (8.5-10.1); CREATININE 0.64 MG/DL (0.50-1.00)
--- NOTE | 2017-12-28 08:45 | HHI.HP ---
History of Present Illness Primary Care Physician Jabari Shi, DO Admission Diagnosis acute symptomatic anemia, history of iron deficiency Diagnoses: (1) Severe anemia Diagnosis: Principal (2) HTN (hypertension) Diagnosis: Secondary (3) COPD (chronic obstructive pulmonary disease) Diagnosis: Secondary (4) Ulcer, pressure Diagnosis: Secondary History of Present Illness Admitted from [facility] rehab routine CBC showed HGB of 4.8. She has dementia and usually has a sitter in rehab. She does wear O2 but usually will keep pulling it off. She has a history of anemia and per chart has required transfusion in the past. PMH Afib, COPD, Anemia, Stool for Occult blood negative in ER. Review of Systems Constitutional: COMPLAINS OF: Fatigue Respiratory: COMPLAINS OF: Shortness of breath Musculoskeletal: COMPLAINS OF: Joint pain Psychiatric: COMPLAINS OF: Confusion Past Family Social History Allergies: Coded Allergies: amoxicillin (Verified Allergy, Unknown, 12/27/17) cefuroxime (Verified Allergy, Unknown, 12/27/17) cilostazol (Verified Allergy, Unknown, 12/27/17) clavulanic acid (Verified Allergy, Unknown, 12/27/17) lisinopril (Verified Allergy, Unknown, 12/27/17) Past Medical History Anemia Depression Dementia HLD COPD Cad GERD HTN CVA with aneurysm clipping Past Surgical History Aneurysm clipping R CHATA Reported Medications Reported Furosemide 20 Mg Tab 20 Mg PO DAILY Dulcolax Supp (Bisacodyl) 10 Mg Supp 10 Mg RECTAL DAILY PRN Isosorbide Mononitrate ER (Isosorbide Mononitrate) 30 Mg Deisy 30 Mg PO DAILY Polyethylene Glycol 3350 Powder (Polyethylene Glycol) 17 Gram Pow 17 Gm PO BID Flovent Hfa 12 GM Inh (Fluticasone Propionate) 110 Mcg/Act Inh 2 Puff INH BID Duoneb (Ipratropium-Albuterol Neb) 0.5-2.5 Mg/3 Ml Neb 1 Nebule INH BID Combivent Respimat Inh (Ipratropium-Albuterol Inh) 20-100 Custodial/Act Aero 2 Puff INH BID Verapamil ER 24 HR (Verapamil HCl) 240 Mg Tab 120 Mg PO HS Thera-M (Multiple Vitamins W/ Minerals) 1 Tab 1 Tab PO DAILT Simvastatin 20 Mg Tab 20 Mg PO DAILY Folic Acid 0.8 Mg Tab 800 Mcg PO DAILY Feosol (Ferrous Sulfate) 325 Mg (65 Mg Iron) Tab 1 Tab PO DAILY Aspirin EC (Aspirin) 81 Mg Tabdr 81 Mg PO DAILY Digoxin 0.125 Mg Tab 0.125 Mg PO DAILY Amitriptyline (Amitriptyline HCl) 50 Mg Tab 50 Mg PO HS Active Ordered Medications Current Medications Medications (Trade) Dose Ordered Sig/[place] Route Start Time Stop Time Status Last Admin Sodium Chloride 250 ml @ 15 mls/hr ONCE ONCE IV 12/27/17 17:30 12/28/17 10:09 12/27/17 19:27 Sodium Chloride 250 ml @ 15 mls/hr ONCE ONCE IV 12/27/17 18:15 12/28/17 10:54 (NS Flush) 2 ml UNSCH PRN IV FLUSH 12/27/17 19:45 (NS Flush) 2 ml BID IV FLUSH 12/27/17 21:00 12/27/17 22:48 (Tylenol) 650 mg Q4H PRN PO 12/27/17 19:45 (Zofran Inj) 4 mg Q6H PRN IVP 12/27/17 19:45 (Narcan Inj) 0.4 mg UNSCH PRN IV PUSH 12/27/17 19:45 (Elavil) 50 mg HS PO 12/27/17 21:00 12/27/17 23:04 (Ecotrin Ec) 81 mg DAILY PO 12/28/17 09:00 (Dulcolax Supp) 10 mg DAILY PRN RECTAL 12/27/17 19:45 (Lanoxin) 0.125 mg DAILY PO 12/28/17 09:00 (Ferrous Sulfate) 325 mg DAILY PO 12/28/17 09:00 (Flovent Hfa 110 Mcg Inh) 2 puff BID INH 12/27/17 21:00 12/27/17 23:03 (Folate) 1 mg DAILY PO 12/28/17 09:00 (Lasix) 20 mg DAILY PO 12/28/17 09:00 (Hendricks 5-325 Mg) 1 tab Q4H PRN PO 12/27/17 19:45 (Imdur) 30 mg DAILY PO 12/28/17 09:00 (Theragran M Tab) 1 tab DAILY PO 12/28/17 09:00 (Miralax) 17 gm BID PO 12/27/17 21:00 12/27/17 23:00 (Isoptin Sr) 120 mg HS PO 12/27/17 21:00 12/27/17 23:04 Patient Own Medication PT OWN MED: COMBIV... BID INH 12/27/17 21:00 Future Hold (Lactinex) 1 tab DAILY PO 12/28/17 09:00 (Pravachol) 40 mg DAILY PO 12/28/17 09:00 Social History No ETOH No Tobacco No Substance abuse Physical Exam Vital Signs Vital Signs Date Time Temp Pulse Resp B/P (MAP) Pulse Ox O2 Delivery O2 Flow Rate FiO2 12/28/17 04:23 90 12/28/17 02:05 97.7 93 18 136/63 (87) 95 12/28/17 01:50 97.5 95 18 136/63 12/28/17 00:23 112 12/27/17 22:53 96.8 87 18 137/63 96 12/27/17 22:37 97.7 82 18 137/60 100 12/27/17 20:48 98.0 85 16 131/62 100 12/27/17 19:29 98.2 90 15 132/61 99 12/27/17 19:14 98.4 97 20 105/58 98 12/27/17 18:00 92 16 133/58 (83) 95 Nasal Cannula 2.00 12/27/17 16:44 98.0 107 15 123/79 (94) 99 12/27/17 16:40 102 18 123/79 (94) 96 Physical Exam GENERAL: This is frail elderly female found naked in bed, in no apparent distress. SKIN: warm and dry, ecchymotic area to right glez HEAD: Atraumatic. Normocephalic. No temporal or scalp tenderness. EYES: Pupils equal round and reactive. Extraocular motions intact. No scleral icterus. No injection or drainage. ENT: Nose without bleeding, purulent drainage or septal hematoma. Airway patent. NECK: Trachea midline. No JVD or lymphadenopathy. Supple, nontender CARDIOVASCULAR: Regular rate and rhythm without murmurs, gallops, or rubs. RESPIRATORY: Clear to auscultation. Breath sounds equal bilaterally. No wheezes , rales, or rhonchi. GASTROINTESTINAL: Abdomen soft, non-tender, nondistended. No hepato-splenomegaly , or palpable masses. No guarding. MUSCULOSKELETAL: Extremities without clubbing, cyanosis, or edema. NEUROLOGICAL: Awake and alert, oriented to person, not conversing much, follows simple commands Laboratory Laboratory Tests Test 12/27/17 17:04 12/28/17 06:05 White Blood Count 4.0 5.9 Red Blood Count 1.68 2.85 Hemoglobin 4.9 8.4 Hematocrit 17.0 25.5 Mean Corpuscular Volume 101.1 89.3 Mean Corpuscular Hemoglobin 29.0 29.4 Mean Corpuscular Hemoglobin Concent 28.6 32.9 Red Cell Distribution Width 22.6 19.9 Platelet Count 191 185 Mean Platelet Volume 8.8 8.8 Neutrophils (%) (Auto) 61.6 78.0 Lymphocytes (%) (Auto) 28.7 13.2 Monocytes (%) (Auto) 8.9 8.0 Eosinophils (%) (Auto) 0.5 0.4 Basophils (%) (Auto) 0.3 0.4 Neutrophils # (Auto) 2.5 4.6 Lymphocytes # (Auto) 1.2 0.8 Monocytes # (Auto) 0.4 0.5 Eosinophils # (Auto) 0.0 0.0 Basophils # (Auto) 0.0 0.0 CBC Comment AUTO DIFF DIFF FINAL Differential Comment AUTO DIFF CONFIRMED Platelet Estimate NORMAL Platelet Morphology Comment NORMAL Polychromasia 3.2 Tear Drop Cells 1+ Prothrombin Time 10.7 Prothromb Time International Ratio 1.1 Activated Partial Thromboplast Time 23.9 Blood Urea Nitrogen 17 14 Creatinine 0.69 0.64 Random Glucose 92 84 Calcium Level 7.7 7.5 Sodium Level 144 144 Potassium Level 3.6 3.2 Chloride Level 110 109 Carbon Dioxide Level 27.3 27.5 Anion Gap 7 8 Estimat Glomerular Filtration Rate 81 88 Digoxin Level 0.3 Result Diagram: 12/28/1760412/28/17604 Caprini VTE Risk Assessment Caprini VTE Risk Assessment: Mod/High Risk (score >= 2) VTE Pharm Contraindication: Active bleeding Caprini Risk Assessment Model Point Value = 1 Point Value = 2 Point Value = 3 Point Value = 5 Age 41-60 Minor surgery BMI > 25 kg/m2 Swollen legs Varicose veins or History of unexplained or recurrent spontaneous Oral contraceptives or hormone replacement Sepsis (< 1 month) Serious lung disease, including pneumonia (< 1 month) Abnormal pulmonary function Acute myocardial infarction Congestive heart failure (< 1 month) History of inflammatory bowel disease Medical patient at bed rest Age 61-74 Arthroscopic surgery Major open surgery (> 45 min) Laparoscopic surgery (> 45 min) Malignancy Confined to bed (> 72 hours) Immobilizing plaster cast Central venous access Age >= 75 History of VTE Family history of VTE Factor V Leiden Prothrombin [id number] Lupus anticoagulant Anticardiolipin antibodies Elevated serum homocysteine Heparin-induced thrombocytopenia Other congenital or acquired thrombophilia Stroke (< 1 month) Elective arthroplasty Hip, pelvis, or leg fracture Acute spinal cord injury (< 1 month) Prophylaxis Regimen Total Risk Factor Score Risk Level Prophylaxis Regimen 0-1 Low Early ambulation 2 Moderate Order ONE of the following: *Sequential Compression Device (SCD) *Heparin 5000 units SQ BID 3-4 Higher Order ONE of the following medications: *Heparin 5000 units SQ TID *Enoxaparin/Lovenox 40 mg SQ daily (WT < 150 kg, CrCl > 30 mL/min) *Enoxaparin/Lovenox 30 mg SQ daily (WT < 150 kg, CrCl > 10-29 mL/min) *Enoxaparin/Lovenox 30 mg SQ BID (WT < 150 kg, CrCl > 30 mL/min) AND/OR *Sequential Compression Device (SCD) 5 or more Highest Order ONE of the following medications: *Heparin 5000 units SQ TID (Preferred with Epidurals) *Enoxaparin/Lovenox 40 mg SQ daily (WT < 150 kg, CrCl > 30 mL/min) *Enoxaparin/Lovenox 30 mg SQ daily (WT < 150 kg, CrCl > 10-29 mL/min) *Enoxaparin/Lovenox 30 mg SQ BID (WT < 150 kg, CrCl > 30 mL/min) AND *Sequential Compression Device (SCD) Assessment and Plan Problem List: (1) Severe anemia ICD Codes: D64.9 - Anemia, unspecified Status: Acute Plan: Order for 4 units, only 2 given. Hematology consulted HGB 8.4 this am (2) Ulcer, pressure ICD Codes: L89.90 - Pressure ulcer of unspecified site, unspecified stage Status: Acute Plan: Wound care consult (3) COPD (chronic obstructive pulmonary disease) ICD Codes: J44.9 - Chronic obstructive pulmonary disease, unspecified Status: Chronic Plan: Monitor saturation. O2 PRN keep sats >92, Nebs PRN (4) HTN (hypertension) ICD Codes: I10 - Essential (primary) hypertension Status: Chronic Plan: Cont home medications Problem Qualifiers (1) Ulcer, pressure: Qualified Codes: L89.312 - Pressure ulcer of right buttock, stage 2 Fany Tim Dec 28, 2017 08:45
[2017-12-28] MEDS: POLYETHYLENE GLYCOL 17 GM PKG PO SCH ×3 (09:00→12:35)
[2017-12-28] MEDS: LACTOBACILLUS ACIDOPHILUS TAB PO SCH ×2 (09:00→11:23)
[2017-12-28] MEDS: DIGOXIN 0.125 MG TAB PO SCH ×2 (09:00→11:23)
[2017-12-28] MEDS: PRAVASTATIN SOD 40 MG TAB PO SCH ×2 (09:00→11:16)
[2017-12-28] MEDS: FUROSEMIDE 20 MG TAB PO SCH ×2 (09:00→11:16)
[2017-12-28] MEDS: ISOSORBIDE MONONITRATE 30 MG CR TAB (IMDUR) PO SCH ×2 (09:00→11:16)
[2017-12-28] MEDS: MULTIVITAMINS/MINERALS THERAPEUTIC TAB PO SCH ×2 (09:00→11:16)
[2017-12-28] MEDS: ASPIRIN EC 81 MG TABEC PO SCH ×2 (11:17→12:36)
[2017-12-28] MEDS: FERROUS SULFATE 325 MG (65 MG ELEMENTAL IRON) TAB PO SCH ×2 (11:18→12:36)
[2017-12-28] MEDS: FOLIC ACID 1 MG TAB PO SCH ×2 (11:18→12:38)
[2017-12-28] MEDS: FLUTICASONE PROPIONATE 110 MCG/ACT 12 GM INHALER INH SCH ×2 (11:19→21:00)
[2017-12-28] MEDS: SODIUM CHLORIDE 0.9% FLUSH 10 ML FLUSH IV FLUSH SCH ×2 (11:19→22:14)
[2017-12-28] MEDS ORDERED: RESP: ALBUTEROL 2.5 MG/IPRATROPIUM 0.5 MG NEB (SCH) ONE (16:13)
[2017-12-28] MEDS: RESP: ALBUTEROL 2.5 MG/IPRATROPIUM 0.5 MG NEB (PRN) NEB (16:16)
[2017-12-28] MEDS: VERAPAMIL HCL 120 MG SUSTAINED RELEASE TAB PO SCH (21:00)
[2017-12-28] MEDS: AMITRIPTYLINE HCL 50 MG TAB PO SCH (21:00)
[2017-12-28] MEDS: RESP: ALBUTEROL 2.5 MG/IPRATROPIUM 0.5 MG NEB (SCH) INH (21:54)
[2017-12-28 22:48] LABS: ALBUMIN 2.1 GM/DL (3.4-5.0); BICARBONATE 26.8 MEQ/L (21.0-32.0); CALCIUM 7.5 MG/DL (8.5-10.1); CREATININE 0.56 MG/DL (0.50-1.00); DIRECT BILIRUBIN ADULT 0.2 MG/DL (0.0-0.2)
[2017-12-28 22:50] LABS: % SATURATION IRON PROFILE 12.5 % (20-50); IRON (FE) 38 MCG/DL (50-170); TOTAL IRON BINDING CAPACITY 304 MCG/DL (250-450)
[2017-12-28 22:51] LABS: INDIRECT BILIRUBIN 0.5 MG/DL (0.0-0.8); TOTAL BILIRUBIN ADULT 0.7 MG/DL (0.2-1.0); TOTAL PROTEIN 5.4 GM/DL (6.4-8.2)
[2017-12-28 23:15] LABS: FERRITIN 133 NG/ML (8-252)
[2017-12-29] VITALS (9 sets, daily range): BP systolic 123–141; BP diastolic 62–71; PULSE 67–101; RESP 18–20; TEMP 97.7–98; O2SAT 97–100
--- NOTE | 2017-12-29 01:41 | MB ---
cc: Duy Spicer MD DATE: 12/28/2017 REASON FOR CONSULTATION: Patient with severe anemia. HISTORY OF PRESENT ILLNESS: This is an 82-year-old female who apparently has a history of dementia. She is currently in a rehab facility. The patient is currently very lethargic. She is unable to answer my questions. She opens her eyes, but does not respond to any questions. She was brought to the emergency room because of lethargy and weakness. She was found to have a hemoglobin of 4.9. She was given 2 units of packed red blood cells. Anemia studies were not obtained prior to administering blood. Upon review of medical records, it appears that she has a history of COPD, coronary artery disease, GERD, hypertension and CVA. She had a stool Hemoccult on presentation that was negative. Her RN was present during this evaluation; however, the RN did not know what the patient's baseline was when she was in the halfway, but she stated that the patient has been nonverbal since her admission. No family members were present. REVIEW OF SYSTEMS: Unable to be obtained, due to the patient's mental status. PAST MEDICAL HISTORY: Anemia, depression, dementia, hyperlipidemia, COPD, coronary artery disease, GERD, hypertension, CVA with aneurysm clipping. PAST SURGICAL HISTORY: Aneurysm clipping, right total hip arthroplasty. MEDICATIONS: 1. DuoNeb. 2. Aspirin 81 mg daily. 3. Digoxin 0.125 p.o. daily. 4. Iron sulfate 325 mg p.o. daily. 5. Folic acid 1 mg p.o. daily. 6. Lasix 20 mg p.o. daily. 7. Isosorbide mononitrate 30 mg daily. 8. Multivitamin 1 tablet daily. 9. Lactobacillus. 10. Pravastatin 40 mg daily. 11. Elavil 50 mg p.o. at bedtime. 12. Fluticasone 2 puffs b.i.d. 13. MiraLAX p.r.n. 14. Verapamil 120 mg p.o. at bedtime. 15. Zofran 4 mg q hours p.r.n. 16. Naloxone 0.4 mg IV p.r.n. 17. Bisacodyl p.r.n. ALLERGIES: SHE IS ALLERGIC TO AMOXICILLIN, CEPHALEXIN, CILOSTAZOL, CLAVULANIC ACID, LISINOPRIL. FAMILY HISTORY: Was unable to be obtained. SOCIAL HISTORY: She lives in a rehab facility. Additional social history could not be obtained. PHYSICAL EXAMINATION: VITAL SIGNS: Blood pressure is 145/74, pulse is in the 100s, temperature is 98, O2 saturation 97% on 3 liters via nasal cannula. GENERAL: Cachectic, elderly, frail lady who is nonverbal. HEENT: Pupils are equal, round and reactive to light. EOMI. No oral thrush. No oral lesions. NECK: Is supple. No JVD. No bruits. No lymphadenopathy. CHEST: Is clear to auscultation bilaterally. CARDIAC: S1, S2. Regular rate and rhythm. ABDOMEN: Is soft, nontender, nondistended. Bowel sounds are present. EXTREMITIES: Without any edema, erythema or cyanosis. SKIN: Without petechiae, lesions, or bruises. NEUROLOGIC: No focal deficit. PSYCHIATRIC: Unable to be assessed. LABORATORIES: WBCs 5.9, hemoglobin after 2 units of packed red blood cells is 8.4, platelet count is 185. Serum chemistry: Sodium 143, potassium 3.1, chloride 108, BUN 11, creatinine 0.56, GFR 103, calcium 7.5, total bilirubin 0.7, AST is 17, ALT is 14, alkaline phosphatase is 65, total protein is 5.4, albumin is 2.1. IMAGING: CT of the head shows aneurysmal clipping on the left and old ischemic changes. This was completed in November. ASSESSMENT AND PLAN: This is an 82-year-old female who has a history of dementia. She is a resident of a rehabilitation facility. She was brought to the emergency room with increasing lethargy and was found to be severely anemic. 1. Severe anemia: She was given 2 units of packed red blood cells and her hemoglobin is 8.4. Unfortunately, anemia studies were not performed prior to transfusing blood. We will obtain B12 and folate levels. Iron studies at this time would be distorted because she has received packed red blood cells. We will check a serum protein electrophoresis. We will check serum iron levels and transfers and serum transferrin levels. She may benefit from iron infusions. I would recommend obtaining a GI consult. I would recommend discontinuing aspirin. We will make sure that there is no underlying hemolysis. We will obtain lactate dehydrogenase and haptoglobin. Obtain direct and total bilirubin levels. 2. History of dementia, now with lethargy: I will defer further workup to primary team to make sure there is no underlying infection that may be contributing to her lethargy. 3. History of pressure ulcers. 4. Chronic obstructive pulmonary disease. 5. Hypertension. 6. History of coronary artery disease. Thank you for allowing me to participate in the care of this patient. We will continue to follow this patient along. MD MICHELLE Bocanegra/ADAIR , 12:53 AM , 01:40 AM SHANA
[2017-12-29 07:42] LABS: AUTOMATED NEUTROPHIL # 3.4 TH/MM3 (1.8-7.7); BASOPHIL % 0.4 % (0.0-2.0); EOSINOPHIL % 0.6 % (0.0-4.0); HEMOGLOBIN 7.8 GM/DL (11.6-15.3); LYMPH % 23.4 % (9.0-44.0); LYMPHOCYTE # 1.2 TH/MM3 (1.0-4.8); MEAN CELL VOLUME 89.5 FL (80.0-100.0); MEAN CORPUSCULAR HEMOGLOBIN 28.9 PG (27.0-34.0); MEAN CORPUSCULAR HGB CONC 32.3 % (32.0-36.0); MEAN PLATELET VOLUME 8.9 FL (7.0-11.0); MONO % 7.3 % (0.0-8.0); MONOCYTE # 0.4 TH/MM3 (0-0.9); NEUT % 68.3 % (16.0-70.0); PLATELET COUNT 155 TH/MM3 (150-450); RED BLOOD COUNT 2.68 MIL/MM3 (4.00-5.30); RED CELL DISTRIBUTION WIDTH 20.1 % (11.6-17.2)
[2017-12-29] MEDS ORDERED: IRON SUCROSE INJ 200 MG in SODIUM CHLORIDE 0.9% INJ 100 ML IV ONE (08:00)
[2017-12-29] MEDS: RESP: ALBUTEROL 2.5 MG/IPRATROPIUM 0.5 MG NEB (SCH) INH ×2 (08:04→22:10)
[2017-12-29] MEDS: FLUTICASONE PROPIONATE 110 MCG/ACT 12 GM INHALER INH SCH ×2 (08:54→22:15)
[2017-12-29] MEDS: SODIUM CHLORIDE 0.9% FLUSH 10 ML FLUSH IV FLUSH SCH ×2 (08:54→22:16)
--- NOTE | 2017-12-29 13:13 | HHI.PR ---
Subjective Remarks The patient is in bed. However she is complaining of some pain on and off in her left heel. She has wounds on her left heel and also on the buttocks present on admission. She denies fever or chills. Feels tired. Not eating much, does not have appetite. No nausea vomiting no diarrhea or constipation. Denies chest pain. Has some shortness of breath at baseline. Objective Vitals Vital Signs Date Time Temp Pulse Resp B/P (MAP) Pulse Ox O2 Delivery O2 Flow Rate FiO2 12/29/17 11:30 97.8 101 20 123/62 (82) 98 12/29/17 08:05 97 Nasal Cannula 3.00 12/29/17 06:56 98.0 80 18 137/69 (91) 100 12/29/17 05:41 97.7 77 18 131/65 (87) 100 12/29/17 04:00 74 12/29/17 01:32 98.0 93 18 123/64 (83) 99 12/28/17 21:56 95 Nasal Cannula 3.00 12/28/17 14:32 98.0 102 20 145/74 (97) 97 I/O 12/28/17 12/28/17 12/28/17 12/29/17 12/29/17 12/29/17 07:00 15:00 23:00 07:00 15:00 23:00 Intake Total 410 ml 100 ml Balance 410 ml 100 ml Intake IV Total 100 ml Packed Cells 400 ml Blood Product IV Normal Saline Flush 10 ml Bladder Scan Volume Amount 637 ml # Voids 1 1 4 # Bowel Movements 0 Result Diagram: 12/29/17 0600 12/28/176 Objective Remarks GENERAL: This is frail elderly female found naked in bed, in no apparent distress. SKIN: Warm and dry, ecchymotic area to right glez, stage 2 pressure ulcer present on admission CARDIOVASCULAR: Regular rate and rhythm without murmurs, gallops, or rubs. RESPIRATORY: Clear to auscultation. Breath sounds equal bilaterally. No wheezes , rales, or rhonchi. GASTROINTESTINAL: Abdomen soft, non-tender, nondistended. No hepato-splenomegaly , or palpable masses. No guarding. MUSCULOSKELETAL: Extremities without clubbing, cyanosis, or edema. NEUROLOGICAL: Awake and alert, oriented to person, not conversing much, follows simple commands A/P Assessment and Plan Severe anemia Order for 4 units, patient received 2 U PRBC. Hematology consulted. Repeat HGB 8.4. However HGB is trending down. Started on IV Venofer. Monitor H/H transfuse if HGB< 7 or if symptomatic Ulcer, pressure buttocks, left heel, present on admission Wound care consult COPD (chronic obstructive pulmonary disease) COPD is without exacerbation at this time. Monitor saturation. O2 PRN keep sats >92, Nebs PRN HTN (hypertension) Cont home medications Discussed with the patient, nurse. DC plan :not ready for discharge. Pending improvement. Patient received 2 units of blood, patient may need to be transfused again. Monitor H&H. On IV benefit Sapna Saleem MD Dec 29, 2017 13:13
--- NOTE | 2017-12-29 14:40 | PD.ONC.PN ---
Subjective Subjective Remarks Afebrile overnight. Patient resting in bed in nad. Denies abdominal pain. No complaints. Objective Data Date Time Temp Pulse Resp B/P (MAP) Pulse Ox O2 Delivery O2 Flow Rate FiO2 12/29/17 11:30 97.8 101 20 123/62 (82) 98 12/29/17 08:05 97 Nasal Cannula 3.00 12/29/17 06:56 98.0 80 18 137/69 (91) 100 12/29/17 05:41 97.7 77 18 131/65 (87) 100 12/29/17 04:00 74 12/29/17 01:32 98.0 93 18 123/64 (83) 99 12/28/17 21:56 95 Nasal Cannula 3.00 12/28/17 14:32 98.0 102 20 145/74 (97) 97 12/29/17 12/29/17 12/29/17 07:00 15:00 23:00 Intake Total 100 ml Balance 100 ml Result Diagram: 12/29/17 0600 12/28/172205 Laboratory Results Laboratory Tests Test 12/28/17 22:06 12/29/17 06:00 Haptoglobin 150 MG/DL Blood Urea Nitrogen 11 MG/DL Creatinine 0.56 MG/DL Random Glucose 88 MG/DL Total Protein 5.4 GM/DL Albumin 2.1 GM/DL Calcium Level 7.5 MG/DL Alkaline Phosphatase 65 U/L Aspartate Amino Transf (AST/SGOT) 17 U/L Alanine Aminotransferase (ALT/SGPT) 14 U/L Total Bilirubin 0.7 MG/DL Direct Bilirubin 0.2 MG/DL Sodium Level 143 MEQ/L Potassium Level 3.1 MEQ/L Chloride Level 108 MEQ/L Carbon Dioxide Level 26.8 MEQ/L Anion Gap 8 MEQ/L Estimat Glomerular Filtration Rate 103 ML/MIN Iron Level 38 MCG/DL Total Iron Binding Capacity 304 MCG/DL Percent Iron Saturation 12.5 % Transferrin 217 MG/DL Ferritin 133 NG/ML Indirect Bilirubin 0.5 MG/DL Lactate Dehydrogenase 198 U/L Vitamin B12 Level 466 PG/ML White Blood Count 5.0 TH/MM3 Red Blood Count 2.68 MIL/MM3 Hemoglobin 7.8 GM/DL Hematocrit 24.0 % Mean Corpuscular Volume 89.5 FL Mean Corpuscular Hemoglobin 28.9 PG Mean Corpuscular Hemoglobin Concent 32.3 % Red Cell Distribution Width 20.1 % Platelet Count 155 TH/MM3 Mean Platelet Volume 8.9 FL Neutrophils (%) (Auto) 68.3 % Lymphocytes (%) (Auto) 23.4 % Monocytes (%) (Auto) 7.3 % Eosinophils (%) (Auto) 0.6 % Basophils (%) (Auto) 0.4 % Neutrophils # (Auto) 3.4 TH/MM3 Lymphocytes # (Auto) 1.2 TH/MM3 Monocytes # (Auto) 0.4 TH/MM3 Eosinophils # (Auto) 0.0 TH/MM3 Basophils # (Auto) 0.0 TH/MM3 CBC Comment DIFF FINAL Differential Comment Culture Results Microbiology Date/Time Source Procedure Growth Status 12/27/17 16:30 Stool Stool Stool Occult Blood (NICHOLAS) - Final HEMOCCULT POSITIVE Complete Administered Medications Medications (Trade) Dose Ordered Sig/[place] Route PRN Reason Start Time Stop Time Status Last Admin Dose Admin Sodium Chloride (NS Flush) 2 ml BID IV FLUSH 12/27/17 21:00 12/29/17 08:54 Amitriptyline HCl (Elavil) 50 mg HS PO 12/27/17 21:00 12/27/17 23:04 Aspirin (Ecotrin Ec) 81 mg DAILY PO 12/28/17 09:00 12/28/17 11:17 Digoxin (Lanoxin) 0.125 mg DAILY PO 12/28/17 09:00 12/28/17 11:23 Ferrous Sulfate (Ferrous Sulfate) 325 mg DAILY PO 12/28/17 09:00 12/28/17 12:36 Fluticasone Propionate (Flovent Hfa 110 Mcg Inh) 2 puff BID INH 12/27/17 21:00 12/29/17 08:54 Folic Acid (Folate) 1 mg DAILY PO 12/28/17 09:00 12/28/17 11:18 Furosemide (Lasix) 20 mg DAILY PO 12/28/17 09:00 12/28/17 11:16 Isosorbide Mononitrate (Imdur) 30 mg DAILY PO 12/28/17 09:00 12/28/17 11:16 Polyethylene Glycol (Miralax) 17 gm BID PO 12/27/17 21:00 12/28/17 11:18 Verapamil HCl (Isoptin Sr) 120 mg HS PO 12/27/17 21:00 12/27/17 23:04 Lactobacillus Acidophilus (Lactinex) 1 tab DAILY PO 12/28/17 09:00 12/28/17 11:23 Pravastatin Sodium (Pravachol) 40 mg DAILY PO 12/28/17 09:00 12/28/17 11:16 Albuterol/ Ipratropium (Duoneb Neb) 1 ampule BID NEB INH 12/28/17 21:00 12/29/17 08:04 Albuterol/ Ipratropium (Duoneb Neb) 1 ampule Q6HR NEB PRN NEB sob 12/28/17 16:00 12/28/17 16:16 Objective Remarks GENERAL: Elderly female, lying in bed, appears frail. SKIN: Warm and dry. HEAD: Normocephalic. EYES: No injection or drainage. NECK: Supple, trachea midline. CARDIOVASCULAR: Regular rate and rhythm RESPIRATORY: Breath sounds equal bilaterally. No accessory muscle use. GASTROINTESTINAL: Abdomen soft, non-tender, nondistended. EXTREMITIES: No cyanosis NEUROLOGICAL: awake but lethargic, moving extremities. Assessment/Plan Problem List: (1) Severe anemia ICD Codes: D64.9 - Anemia, unspecified Status: Acute Plan: --s/p multiple units pRBC during admission --B12 WNL, --+low serum iron --SPEP pending. --GI consulted. --no evidence of hemolysis Assessment 82y/o female admitted from rehab for severe anemia history of dementia. COPD, coronary artery disease, GERD, hypertension and CVA. Plan 1. consult GI for + Hemoccult + severe anemia 2. monitor CBC 3. continue supportive care. Jeny Hendricks Dec 29, 2017 14:40
[2017-12-29] MEDS: ACETAMINOPHEN/HYDROcodone 325 MG/5 MG TAB PO PRN (15:43)
--- NOTE | 2017-12-29 16:32 | PD.CONS ---
HPI History of Present Illness This is a 82 year [facility] F [facility] of low hemoglobin, currently in rehab for right hip fracture. Pt has significant medical problems including dementia, HLD, CAD, GERD, HTM CVA w aneurysm clipping x 2, and REILLY. Pt has known dementia, daughter Divya Keyes at bedside and most of history obtained from her. Per pts daughter she has had a long history of anemia and is on iron supplementation at the rehab. She has had previous blood transfusions, most recently after her hip surgery in October of this year. Per daughter pts blood count was so low at one point that she went to [facility] every day for two weeks to receive transfusions until blood count was normalized, this was back in 2003 and states until hip surgery has not needed any further replacement. Pt with no obvious signs of bleeding at this time. Pts daughter is aware that she has positive Hemoccult stool, however she believes this is from her mother having constipation because she has not been receiving her stool softeners. Pt denies nausea, emesis, abdominal pain. Complaining of back pain during my exam, per daughter this is chronic. Daughter also reports a significant amount of weight loss. Of note, she has been in rehab and is also unable to feed herself. Pt has history of colon cancer and had part of her small intestine and colon removed in 1982. Last EGD and colon reported from 2006 and states it was done for work up of anemia and both exams came back normal. (Leny Corbin) PFSH Past Medical History HLD HTN CAD GERD CVA Depression Dementia REILLY A-fib COPD Past Surgical History Brain aneurysm clipping x 2 EGD Colonoscopy (Leny Corbin) Coded Allergies: amoxicillin (Verified Allergy, Unknown, 12/27/17) cefuroxime (Verified Allergy, Unknown, 12/27/17) cilostazol (Verified Allergy, Unknown, 12/27/17) clavulanic acid (Verified Allergy, Unknown, 12/27/17) lisinopril (Verified Allergy, Unknown, 12/27/17) Review of Systems Gastrointestinal: COMPLAINS OF: Constipation, DENIES: Abdominal pain, Black stools, Bloody stools, Diarrhea, Nausea, Vomiting, Swelling of Abdomen, Heartburn, Hematemesis (Leny Corbin) GI Exam Vitals I&O Vital Signs Date Time Temp Pulse Resp B/P (MAP) Pulse Ox O2 Delivery O2 Flow Rate FiO2 12/29/17 15:12 97.9 83 18 141/71 (94) 100 12/29/17 12:09 86 12/29/17 11:30 97.8 101 20 123/62 (82) 98 12/29/17 08:05 97 Nasal Cannula 3.00 12/29/17 08:03 67 12/29/17 06:56 98.0 80 18 137/69 (91) 100 12/29/17 05:41 97.7 77 18 131/65 (87) 100 12/29/17 04:00 74 12/29/17 01:32 98.0 93 18 123/64 (83) 99 12/28/17 21:56 95 Nasal Cannula 3.00 I/O 12/28/17 12/28/17 12/28/17 12/29/17 12/29/17 12/29/17 07:00 15:00 23:00 07:00 15:00 23:00 Intake Total 410 ml 100 ml Balance 410 ml 100 ml Intake IV Total 100 ml Packed Cells 400 ml Blood Product IV Normal Saline Flush 10 ml Bladder Scan Volume Amount 637 ml # Voids 1 1 4 1 1 # Bowel Movements 0 1 Laboratory Test 12/28/17 22:06 12/29/17 06:00 Haptoglobin 150 MG/DL Blood Urea Nitrogen 11 MG/DL Creatinine 0.56 MG/DL Random Glucose 88 MG/DL Total Protein 5.4 GM/DL Albumin 2.1 GM/DL Calcium Level 7.5 MG/DL Alkaline Phosphatase 65 U/L Aspartate Amino Transf (AST/SGOT) 17 U/L Alanine Aminotransferase (ALT/SGPT) 14 U/L Total Bilirubin 0.7 MG/DL Direct Bilirubin 0.2 MG/DL Sodium Level 143 MEQ/L Potassium Level 3.1 MEQ/L Chloride Level 108 MEQ/L Carbon Dioxide Level 26.8 MEQ/L Anion Gap 8 MEQ/L Estimat Glomerular Filtration Rate 103 ML/MIN Iron Level 38 MCG/DL Total Iron Binding Capacity 304 MCG/DL Percent Iron Saturation 12.5 % Transferrin 217 MG/DL Ferritin 133 NG/ML Indirect Bilirubin 0.5 MG/DL Lactate Dehydrogenase 198 U/L Vitamin B12 Level 466 PG/ML White Blood Count 5.0 TH/MM3 Red Blood Count 2.68 MIL/MM3 Hemoglobin 7.8 GM/DL Hematocrit 24.0 % Mean Corpuscular Volume 89.5 FL Mean Corpuscular Hemoglobin 28.9 PG Mean Corpuscular Hemoglobin Concent 32.3 % Red Cell Distribution Width 20.1 % Platelet Count 155 TH/MM3 Mean Platelet Volume 8.9 FL Neutrophils (%) (Auto) 68.3 % Lymphocytes (%) (Auto) 23.4 % Monocytes (%) (Auto) 7.3 % Eosinophils (%) (Auto) 0.6 % Basophils (%) (Auto) 0.4 % Neutrophils # (Auto) 3.4 TH/MM3 Lymphocytes # (Auto) 1.2 TH/MM3 Monocytes # (Auto) 0.4 TH/MM3 Eosinophils # (Auto) 0.0 TH/MM3 Basophils # (Auto) 0.0 TH/MM3 CBC Comment DIFF FINAL Differential Comment Date/Time Source Procedure Growth Status 12/27/17 16:30 Stool Stool Stool Occult Blood (NICHOLAS) - Final HEMOCCULT POSITIVE Complete Physical Examination HEENT: Normocephalic CHEST: Diffuse expiratory wheezing. 2 L O2 via NC CARDIAC: Irregularly irregular ABDOMEN: Soft, nondistended, nontender; bowel sounds active SKIN: Pale WEATHER REPORTER: Verbal, confused (Leny Corbin) Assessment and Plan Plan Assessment: - Anemia with positive Hemoccult stool- H/H on admission .06/27, now S/P 2 U PRBCs is 7.8/24. Pt with history of REILLY, on iron supplementation at rehab. Per daughter pt has previously required blood transfusions, most recently after a hip fracture but states in 2003 her blood count was so low she went to [facility] every day for two weeks for blood transfusions. Dr. Pace following- iron studies will be inaccurate due to recent blood transfusion. He has ordered serum folate and B12 Previous work up for anemia included EGD and colonoscopy in 2006 per daughter both exams were normal No obvious GIB, including emesis, BRBPR, or melena - History of colon cancer- S/P removal of part of the small intestine and colon in 1982 - Unintentional weight loss- Unsure of the exact amount- weighed 90 lbs in October- Of note, dementia seems to be progressing and pt is unable to feed herself - A-fib- no blood thinners listed in chart- Pts daughter is unsure which medication she is currently taking At this time the pts daughter Divya Meadows who is the POA would not like to proceed with any endoscopic procedures at this time. She would like to explore other causes of anemia prior to considering this. Also thinks her mother is too weak for these procedures at this time. Weight loss may be secondary to progressive dementia, however, will obtain a CT abdomen and pelvis to further evaluate Plan: CT abdomen and pelvis Monitor H/H Transfuse per attending Notify GI of active bleeding MiraLax Pts daughter not wanting GI procedures at this time Further recommendations based on clinical course and results of above Pt has been seen and examined by myself and Dr. Garza and this note is written on her behalf (Leny Corbin) Physician Comments seen, examined agree with above (Mile Garza MD) Leny Corbin Dec 29, 2017 16:31 Mile Garza MD Dec 29, 2017 18:39
[2017-12-29] MEDS: RESP: ALBUTEROL 2.5 MG/IPRATROPIUM 0.5 MG NEB (PRN) NEB (17:40)
[2017-12-29] MEDS ORDERED: IOHEXOL 350 MG/ML 10 ML VIAL (for RAD DIAG) IVCONTRAST ONE (19:39)
--- NOTE | 2017-12-29 21:46 | RADRPT ---
EXAM DATE/TIME: 12/29/2017 19:26 [place] COMPARISON: No previous studies available for comparison. INDICATIONS : Abdomen pain. IV CONTRAST: 75 cc Omnipaque 350 (iohexol) IV ORAL CONTRAST: No oral contrast ingested. RADIATION DOSE: 7.44 CTDIvol (mGy) MEDICAL HISTORY : Dementia. Cardiovascular disease Carcinoma, colon. SURGICAL HISTORY : None. ENCOUNTER: Initial ACUITY: 1 day PAIN SCALE: 5/10 LOCATION: Bilateral abdomen TECHNIQUE: Volumetric scanning of the abdomen and pelvis was performed. Using automated exposure control and ad justment of the mA and/or kV according to patient size, radiation dose was kept as low as reasonably achievable to obtain optimal diagnostic quality images. DICOM format image data is available electro nically for review and comparison. FINDINGS: There are moderate bilateral pleural effusions with compressive atelectasis at the lung bases. Heart size is enlarged. Moderate coronary calcifications. No acute findings in the liver, spleen, adrenals, kidneys or pancreas. No calcified gallstones. There is moderate anasarca. Mild to moderate constipation. Within the pelvis the bladder is distended with. Previous right hip replacement. Advanced degenerativ e change of the spine with scoliosis. CONCLUSION: 1. Moderate bilateral pleural effusions with compressive atelectasis. Moderate anasarca with cardiome donna. 2. Moderate constipation. 3. Distended bladder. 4. Previous right hip replacement. Aba Villegas MD on December 29, 2017 at 21:39 Board Certified Radiologist. This report was verified electronically.
[2017-12-29] MEDS: AMITRIPTYLINE HCL 50 MG TAB PO SCH (22:15)
[2017-12-29] MEDS: POLYETHYLENE GLYCOL 17 GM PKG PO SCH (22:15)
[2017-12-29] MEDS: VERAPAMIL HCL 120 MG SUSTAINED RELEASE TAB PO SCH (22:15)
[2017-12-30] VITALS (14 sets, daily range): BP systolic 110–174; BP diastolic 56–90; PULSE 93–114; RESP 14–21; TEMP 95.6–98.2; O2SAT 94–100
[2017-12-30] MEDS ORDERED: diphenhydrAMINE HCL 25 MG CAP PO ONE (03:30)
[2017-12-30] MEDS ORDERED: ACETAMINOPHEN 325 MG TAB PO ONE (03:30)
[2017-12-30] MEDS: RESP: ALBUTEROL 2.5 MG/IPRATROPIUM 0.5 MG NEB (SCH) INH ×2 (07:53→19:38)
[2017-12-30] MEDS: FLUTICASONE PROPIONATE 110 MCG/ACT 12 GM INHALER INH SCH (10:16)
[2017-12-30] MEDS: MULTIVITAMINS/MINERALS THERAPEUTIC TAB PO SCH (10:17)
[2017-12-30] MEDS: LACTOBACILLUS ACIDOPHILUS TAB PO SCH (10:17)
[2017-12-30] MEDS: POLYETHYLENE GLYCOL 17 GM PKG PO SCH (10:17)
[2017-12-30] MEDS: ISOSORBIDE MONONITRATE 30 MG CR TAB (IMDUR) PO SCH (10:17)
[2017-12-30] MEDS: FOLIC ACID 1 MG TAB PO SCH (10:17)
[2017-12-30] MEDS: ASPIRIN EC 81 MG TABEC PO SCH (10:18)
[2017-12-30] MEDS: SODIUM CHLORIDE 0.9% FLUSH 10 ML FLUSH IV FLUSH SCH (10:18)
[2017-12-30] MEDS: PRAVASTATIN SOD 40 MG TAB PO SCH (10:18)
[2017-12-30] MEDS: FERROUS SULFATE 325 MG (65 MG ELEMENTAL IRON) TAB PO SCH (10:18)
[2017-12-30] MEDS: FUROSEMIDE 20 MG TAB PO SCH (10:18)
[2017-12-30] MEDS: DIGOXIN 0.125 MG TAB PO SCH (10:18)
[2017-12-30 11:30] LABS: AUTOMATED NEUTROPHIL # 3.4 TH/MM3 (1.8-7.7); BASOPHIL % 0.8 % (0.0-2.0); EOSINOPHIL % 0.4 % (0.0-4.0); HEMATOCRIT 35.3 % (35.0-46.0); HEMOGLOBIN 11.6 GM/DL (11.6-15.3); LYMPH % 26.5 % (9.0-44.0); LYMPHOCYTE # 1.4 TH/MM3 (1.0-4.8); MEAN CELL VOLUME 88.7 FL (80.0-100.0); MEAN CORPUSCULAR HEMOGLOBIN 29.2 PG (27.0-34.0); MEAN CORPUSCULAR HGB CONC 32.9 % (32.0-36.0); MEAN PLATELET VOLUME 9.2 FL (7.0-11.0); MONOCYTE # 0.5 TH/MM3 (0-0.9); NEUT % 63.3 % (16.0-70.0); PLATELET COUNT 168 TH/MM3 (150-450); RED BLOOD COUNT 3.98 MIL/MM3 (4.00-5.30); RED CELL DISTRIBUTION WIDTH 18.3 % (11.6-17.2); WHITE BLOOD COUNT 5.4 TH/MM3 (4.0-11.0)
[2017-12-30 11:44] LABS: BICARBONATE 29.8 MEQ/L (21.0-32.0); CALCIUM 7.7 MG/DL (8.5-10.1); CREATININE 0.57 MG/DL (0.50-1.00)
--- NOTE | 2017-12-30 12:15 | HHI.GIFU ---
Subjective Remarks Pt resting in bed Opens eyes during my exam, does not respond verbally Per RN pt had a BM yesterday, received MiraLax this morning Pt appears comfortable, in no apparent distress (Leny Corbin) Objective Vitals I&O Vital Signs Date Time Temp Pulse Resp B/P (MAP) Pulse Ox O2 Delivery O2 Flow Rate FiO2 12/30/17 08:20 99 12/30/17 07:54 98 Nasal Cannula 2.00 12/30/17 07:28 105 20 131/68 (89) 99 12/30/17 07:27 Nasal Cannula 2.00 12/30/17 07:21 95.6 105 20 131/68 99 12/30/17 04:36 97.8 102 18 116/60 94 12/30/17 03:53 98.2 98 18 118/65 94 12/30/17 01:49 98.2 101 14 110/56 (74) 98 12/29/17 22:17 Nasal Cannula 2.00 12/29/17 15:12 97.9 83 18 141/71 (94) 100 I/O 12/29/17 12/29/17 12/29/17 12/30/17 12/30/17 12/30/17 07:00 15:00 23:00 07:00 15:00 23:00 Intake Total 100 ml 410 ml Balance 100 ml 410 ml Intake IV Total 100 ml Packed Cells 400 ml Blood Product IV Normal Saline Flush 10 ml # Voids 4 1 2 2 # Bowel Movements 1 Laboratory Laboratory Tests Test 12/30/17 10:59 White Blood Count 5.4 Red Blood Count 3.98 Hemoglobin 11.6 Hematocrit 35.3 Mean Corpuscular Volume 88.7 Mean Corpuscular Hemoglobin 29.2 Mean Corpuscular Hemoglobin Concent 32.9 Red Cell Distribution Width 18.3 Platelet Count 168 Mean Platelet Volume 9.2 Neutrophils (%) (Auto) 63.3 Lymphocytes (%) (Auto) 26.5 Monocytes (%) (Auto) 9.0 Eosinophils (%) (Auto) 0.4 Basophils (%) (Auto) 0.8 Neutrophils # (Auto) 3.4 Lymphocytes # (Auto) 1.4 Monocytes # (Auto) 0.5 Eosinophils # (Auto) 0.0 Basophils # (Auto) 0.0 CBC Comment DIFF FINAL Differential Comment Blood Urea Nitrogen 6 Creatinine 0.57 Random Glucose 79 Calcium Level 7.7 Sodium Level 143 Potassium Level 3.8 Chloride Level 106 Carbon Dioxide Level 29.8 Anion Gap 7 Estimat Glomerular Filtration Rate 101 Date/Time Source Procedure Growth Status 12/27/17 16:30 Stool Stool Stool Occult Blood (NICHOLAS) - Final HEMOCCULT POSITIVE Complete Imaging Last Impressions Abdomen/Pelvis CT 12/29/17 0000 Signed Impressions: Service Date/Time: Friday, December 29, 2017 19:26 - CONCLUSION: 1. Moderate bilateral pleural effusions with compressive atelectasis. Moderate anasarca with cardiomegaly. 2. Moderate constipation. 3. Distended bladder. 4. Previous right hip replacement. Aba Villegas MD Physical Exam HEENT: Normocephalic; atraumatic CHEST: Even/unlabored CARDIAC: RRR ABDOMEN: Soft, nondistended, nontender; bowel sounds active EXTREMITIES: No clubbing, cyanosis, or edema. SKIN: Normal; no rash; no jaundice. PHYTOPATHOLOGY TEACHER: lethargic, opens eyes to verbal stimuli, nonverbal (Leny Corbin) Assessment and Plan Plan Assessment: - Anemia with positive Hemoccult stool- H/H on admission 4.9, now S/P 2 U PRBCs is 7.8/24. Pt with history of REILLY, on iron supplementation at rehab. Per daughter pt has previously required blood transfusions, most recently after a hip fracture but states in 2003 her blood count was so low she went to [facility] every day for two weeks for blood transfusions. Dr. Pace following- iron studies will be inaccurate due to recent blood transfusion. He has ordered serum folate and B12 Previous work up for anemia included EGD and colonoscopy in 2006 per daughter both exams were normal No obvious GIB, including emesis, BRBPR, or melena - History of colon cancer- S/P removal of part of the small intestine and colon in 1982 - Unintentional weight loss- Unsure of the exact amount- weighed 90 lbs in October- Of note, dementia seems to be progressing and pt is unable to feed herself - A-fib- no blood thinners listed in chart- Pts daughter is unsure which medication she is currently taking At this time the pts daughter Divya Meadows who is the POA would not like to proceed with any endoscopic procedures at this time. She would like to explore other causes of anemia prior to considering this. Also thinks her mother is too weak for these procedures at this time. Weight loss may be secondary to progressive dementia, however, will obtain a CT abdomen and pelvis to further evaluate (12/30) --> Pt resting in bed, in no apparent distress. Per RN pt had a BM yesterday. Received Miralax this AM. CT abdomen and pelvis noted --> Moderate constipation. Distended bladder. Moderate bilateral pleural effusions with compressive atelectasis. Moderate anasarca with cardiomegaly. Previous right hip replacement. H/H currently 11.6/35.3 S/P 3 U PRBCs. Daughter not wishing to proceed with GI endoscopic procedures, therefore, not much to add from our standpoint. We will sign off. Please reconsult as needed. Plan: Daughter- POA not wishing for endoscopic GI procedures We will sign off, please reconsult as needed Pt can follow up in office after DC Pt has been seen and examined by myself and Dr. Garza and this note is written on her behalf (Leny Corbin) Physician Comments agree with above (Mile Garza MD) Leny Corbin Dec 30, 2017 12:15 Mile Garza MD Dec 30, 2017 15:55
--- NOTE | 2017-12-30 13:39 | PD.WCN.NOT ---
Wound Consult Description: Wound consult ordered by for buttocks and left heel Communicated with: Xuan DAHL F-pod , Recommendation: 1. Reposition patient every 2 hours for comfort and offloading. 2. Apply Calazime cream to Stage 1 non blanchable Right inner buttocks area BID 3. Skin prep Right heel DTI BID 4. Ensure patient has heel protectors on when in bed. 5. Avoiding using brief with bedbound patient no cotton underpads. Additional Information: Patient was seen today in F-pod by principal technical writer and Xuan DAHL for assessment of buttocks/left heel.Patient alert in bed with confusion.Patient required 1 person assistance to reposition to Right side.Patient bilateral upper buttocks has areas of healed scar tissue in which are blanchable. Right inner buttocks has a intact nonblanchable area measuring ~2.0cm ~2.0cm .Brief removed from patient to reduce moisture.UltraSorb placed under patient for incontinence.Assessment of Right heel reveal Soft boggy DTI measuring ~2.7cm x ~ 2.9cm wound base is ~75% soft intact boggy eschar and 25% soft boggy white tissue.Skin prep applied to DTI heel protectors ordered.Patient was repositioned to Right side with the assistance of Xuan DAHL.Heels floated on pillow till heel protectors available.Patient tolerated wound care well no signs and symptoms of distress. Darren East [facility] Dec 30, 2017 13:39
--- NOTE | 2017-12-30 15:19 | HHI.PR ---
Subjective Remarks Currently eating lunch. Pt states she is not from around here, seems pleasantly confused, wants to get out of bed, wants to use the restroom. Denies any chest pain, SOB, nausea or vomiting. Discussed w RN, pt is a lot more awake and alert since admission. Objective Vitals Vital Signs Date Time Temp Pulse Resp B/P (MAP) Pulse Ox O2 Delivery O2 Flow Rate FiO2 12/30/17 13:22 98.0 96 20 119/57 (77) 97 12/30/17 08:20 99 12/30/17 07:54 98 Nasal Cannula 2.00 12/30/17 07:28 105 20 131/68 (89) 99 12/30/17 07:27 Nasal Cannula 2.00 12/30/17 07:21 95.6 105 20 131/68 99 12/30/17 04:36 97.8 102 18 116/60 94 12/30/17 03:53 98.2 98 18 118/65 94 12/30/17 01:49 98.2 101 14 110/56 (74) 98 12/29/17 22:17 Nasal Cannula 2.00 12/29/17 15:12 97.9 83 18 141/71 (94) 100 I/O 12/29/17 12/29/17 12/29/17 12/30/17 12/30/17 12/30/17 07:00 15:00 23:00 07:00 15:00 23:00 Intake Total 100 ml 410 ml Balance 100 ml 410 ml Intake IV Total 100 ml Packed Cells 400 ml Blood Product IV Normal Saline Flush 10 ml # Voids 4 1 2 3 # Bowel Movements 1 Result Diagram: 12/30/17 1059 12/30/17 1059 Imaging Last Impressions Abdomen/Pelvis CT 12/29/17 0000 Signed Impressions: Service Date/Time: Friday, December 29, 2017 19:26 - CONCLUSION: 1. Moderate bilateral pleural effusions with compressive atelectasis. Moderate anasarca with cardiomegaly. 2. Moderate constipation. 3. Distended bladder. 4. Previous right hip replacement. Aba Villegas MD Objective Remarks GENERAL: This is frail elderly female found naked in bed, in no apparent distress. SKIN: not examined today CARDIOVASCULAR: Regular rate but tachycardic RESPIRATORY: has a wet cough but lungs seem clear. GASTROINTESTINAL: Abdomen soft, non-tender, nondistended. No guarding. MUSCULOSKELETAL: Extremities without edema. NEUROLOGICAL: Awake and alert, oriented to person, more worried about getting out of bed, follows simple commands A/P Assessment and Plan Severe anemia Order for 4 units, patient received 3 U PRBC. Hematology following Repeat HGB 11.3. However unsure if this is Hb is a true read as pt is tachycardic at 110-120's on exam and on TELE. I will order a STAT H&H and f/u. Transfuse as needed if Hb<7 s/p IV Venofer. currently on iron tablets. GI did evaluate the pt and recommended endoscopy but POA did not wish to proceed w it. Ulcer, pressure buttocks, left heel, present on admission Wound care following. Appreciate recs. COPD (chronic obstructive pulmonary disease) COPD is without exacerbation at this time. Monitor saturation. O2 PRN keep sats >92, Nebs PRN HTN (hypertension) Cont home medications Discharge Planning f/u stat H&H and transfuse as needed as pt is mildly tachycardic. awaiting final recs from hematology Shabnam Monterroso MD Dec 30, 2017 15:19
[2017-12-30 16:15] LABS: HEMATOCRIT 34.8 % (35.0-46.0); HEMOGLOBIN 11.4 GM/DL (11.6-15.3)
--- NOTE | 2017-12-30 18:20 | PD.ONC.PN ---
Subjective Subjective Remarks Afebrile overnight Per RN she has not had anymore active bleeding Pt is confused and wants to leave No acute complaints Objective Data Date Time Temp Pulse Resp B/P (MAP) Pulse Ox O2 Delivery O2 Flow Rate FiO2 12/30/17 17:40 97.6 103 21 140/72 (94) 95 12/30/17 13:22 98.0 96 20 119/57 (77) 97 12/30/17 08:20 99 12/30/17 07:54 98 Nasal Cannula 2.00 12/30/17 07:28 105 20 131/68 (89) 99 12/30/17 07:27 Nasal Cannula 2.00 12/30/17 07:21 95.6 105 20 131/68 99 12/30/17 04:36 97.8 102 18 116/60 94 12/30/17 03:53 98.2 98 18 118/65 94 12/30/17 01:49 98.2 101 14 110/56 (74) 98 12/29/17 22:17 Nasal Cannula 2.00 12/30/17 12/30/17 12/30/17 06:59 14:59 22:59 Intake Total 410 ml Balance 410 ml Result Diagram: 12/30/17 1540 12/30/17 1059 Laboratory Results Laboratory Tests Test 12/30/17 10:59 12/30/17 15:40 White Blood Count 5.4 TH/MM3 Red Blood Count 3.98 MIL/MM3 Hemoglobin 11.6 GM/DL 11.4 GM/DL Hematocrit 35.3 % 34.8 % Mean Corpuscular Volume 88.7 FL Mean Corpuscular Hemoglobin 29.2 PG Mean Corpuscular Hemoglobin Concent 32.9 % Red Cell Distribution Width 18.3 % Platelet Count 168 TH/MM3 Mean Platelet Volume 9.2 FL Neutrophils (%) (Auto) 63.3 % Lymphocytes (%) (Auto) 26.5 % Monocytes (%) (Auto) 9.0 % Eosinophils (%) (Auto) 0.4 % Basophils (%) (Auto) 0.8 % Neutrophils # (Auto) 3.4 TH/MM3 Lymphocytes # (Auto) 1.4 TH/MM3 Monocytes # (Auto) 0.5 TH/MM3 Eosinophils # (Auto) 0.0 TH/MM3 Basophils # (Auto) 0.0 TH/MM3 CBC Comment DIFF FINAL Differential Comment Blood Urea Nitrogen 6 MG/DL Creatinine 0.57 MG/DL Random Glucose 79 MG/DL Calcium Level 7.7 MG/DL Sodium Level 143 MEQ/L Potassium Level 3.8 MEQ/L Chloride Level 106 MEQ/L Carbon Dioxide Level 29.8 MEQ/L Anion Gap 7 MEQ/L Estimat Glomerular Filtration Rate 101 ML/MIN Administered Medications Medications (Trade) Dose Ordered Sig/[place] Route PRN Reason Start Time Stop Time Status Last Admin Dose Admin Sodium Chloride (NS Flush) 2 ml BID IV FLUSH 12/27/17 21:00 12/30/17 10:18 Amitriptyline HCl (Elavil) 50 mg HS PO 12/27/17 21:00 12/29/17 22:15 Aspirin (Ecotrin Ec) 81 mg DAILY PO 12/28/17 09:00 12/30/17 10:18 Digoxin (Lanoxin) 0.125 mg DAILY PO 12/28/17 09:00 12/30/17 10:18 Ferrous Sulfate (Ferrous Sulfate) 325 mg DAILY PO 12/28/17 09:00 12/30/17 10:18 Fluticasone Propionate (Flovent Hfa 110 Mcg Inh) 2 puff BID INH 12/27/17 21:00 12/30/17 10:16 Folic Acid (Folate) 1 mg DAILY PO 12/28/17 09:00 12/30/17 10:17 Furosemide (Lasix) 20 mg DAILY PO 12/28/17 09:00 12/30/17 10:18 Acetaminophen/ Hydrocodone Bitart ([place] 5-325 Mg) 1 tab Q4H PRN PO PAIN 1-10 12/27/17 19:45 12/29/17 15:43 Isosorbide Mononitrate (Imdur) 30 mg DAILY PO 12/28/17 09:00 12/30/17 10:17 Multivitamins/ Minerals Therapeutic (Theragran M Tab) 1 tab DAILY PO 12/28/17 09:00 12/30/17 10:17 Polyethylene Glycol (Miralax) 17 gm BID PO 12/27/17 21:00 12/30/17 10:17 Verapamil HCl (Isoptin Sr) 120 mg HS PO 12/27/17 21:00 12/29/17 22:15 Lactobacillus Acidophilus (Lactinex) 1 tab DAILY PO 12/28/17 09:00 12/30/17 10:17 Pravastatin Sodium (Pravachol) 40 mg DAILY PO 12/28/17 09:00 12/30/17 10:18 Albuterol/ Ipratropium (Duoneb Neb) 1 ampule BID NEB INH 12/28/17 21:00 12/30/17 07:53 Albuterol/ Ipratropium (Duoneb Neb) 1 ampule Q6HR NEB PRN NEB sob 12/28/17 16:00 12/29/17 17:40 Objective Remarks GENERAL: Frail elderly moving around in bed SKIN: Warm and dry. HEAD: Normocephalic. EYES: No injection or drainage. NECK: Supple, trachea midline. CARDIOVASCULAR: Regular rate and rhythm. Mild tachycardia RESPIRATORY: Scattered rhonchi anteriorly. GASTROINTESTINAL: Abdomen soft, non-tender, nondistended. EXTREMITIES: No cyanosis. SCDs to bilateral lower extremities MUSCULOSKELETAL: Adequate muscle tone. NEUROLOGICAL: Alert and confused. Moving all extremities. Assessment/Plan Problem List: (1) Severe anemia ICD Codes: D64.9 - Anemia, unspecified Status: Acute Plan: --s/p total of 3 units of packed red blood cells --B12 WNL, --+low serum iron --SPEP pending. --GI consulted. --no evidence of hemolysis Assessment 82y/o female admitted from rehab for severe anemia history of dementia. COPD, coronary artery disease, GERD, hypertension and CVA. Plan 1. Per patient's daughter she does not wish for colonoscopy to look for source of bleeding 2. Noted hemoglobin went up from 7.8 to 11 overnight after one unit of blood. Will continue to monitor. 3. Supportive care. Kristel Killian Dec 30, 2017 18:20
[2017-12-31] MEDS: FLUTICASONE PROPIONATE 110 MCG/ACT 12 GM INHALER INH SCH ×2 (00:49→09:42)
[2017-12-31] MEDS: SODIUM CHLORIDE 0.9% FLUSH 10 ML FLUSH IV FLUSH SCH ×2 (00:49→09:42)
[2017-12-31] MEDS: VERAPAMIL HCL 120 MG SUSTAINED RELEASE TAB PO SCH (00:50)
[2017-12-31] MEDS: AMITRIPTYLINE HCL 50 MG TAB PO SCH (00:50)
[2017-12-31] MEDS: POLYETHYLENE GLYCOL 17 GM PKG PO SCH ×2 (00:50→09:43)
[2017-12-31 03:13] VITALS: BP 134/63; PULSE 102; RESP 18; O2SAT 100
[2017-12-31 07:51] VITALS: O2SAT 97
[2017-12-31] MEDS: RESP: ALBUTEROL 2.5 MG/IPRATROPIUM 0.5 MG NEB (SCH) INH (07:51)
[2017-12-31 07:53] LABS: HEMATOCRIT 34.3 % (35.0-46.0); HEMOGLOBIN 11.3 GM/DL (11.6-15.3)
[2017-12-31 09:27] VITALS: BP 98/69; RESP 16; TEMP 98.7; O2SAT 100
[2017-12-31] MEDS: FOLIC ACID 1 MG TAB PO SCH (09:42)
[2017-12-31] MEDS: FERROUS SULFATE 325 MG (65 MG ELEMENTAL IRON) TAB PO SCH (09:42)
[2017-12-31] MEDS: ASPIRIN EC 81 MG TABEC PO SCH (09:42)
[2017-12-31] MEDS: MULTIVITAMINS/MINERALS THERAPEUTIC TAB PO SCH (09:42)
[2017-12-31] MEDS: DIGOXIN 0.125 MG TAB PO SCH (09:43)
[2017-12-31] MEDS: LACTOBACILLUS ACIDOPHILUS TAB PO SCH (09:43)
[2017-12-31] MEDS: ISOSORBIDE MONONITRATE 30 MG CR TAB (IMDUR) PO SCH (09:43)
[2017-12-31] MEDS: FUROSEMIDE 20 MG TAB PO SCH (09:43)
[2017-12-31] MEDS: PRAVASTATIN SOD 40 MG TAB PO SCH (09:43)
[2017-12-31 12:46] VITALS: BP 121/65; PULSE 72; RESP 18; TEMP 96.5; O2SAT 97
--- NOTE | 2017-12-31 15:13 | HHI.DS ---
Discharge Summary Admission Date Dec 27, 2017 at 18:13 Discharge Date: Dec 31, 2017 Admitting Diagnosis acute symptomatic anemia, history of iron deficiency (1) Severe anemia ICD Code: D64.9 - Anemia, unspecified Status: Acute Procedures none Brief History - From Admission Admitted from [facility] routine CBC showed HGB of 4.8. She has dementia and usually has a sitter in rehab. She does wear O2 but usually will keep pulling it off. She has a history of anemia and per chart has required transfusion in the past. PMH Afib, COPD, Anemia, Stool for Occult blood negative in ER. CBC/BMP: 12/31/17 0634 12/30/17 1059 Significant Findings Laboratory Tests Test 12/28/17 22:06 12/29/17 06:00 12/30/17 10:59 12/30/17 15:40 Total Protein 5.4 GM/DL (6.4-8.2) Albumin 2.1 GM/DL (3.4-5.0) Calcium Level 7.5 MG/DL (8.5-10.1) 7.7 MG/DL (8.5-10.1) Potassium Level 3.1 MEQ/L (3.5-5.1) Chloride Level 108 MEQ/L (98-107) Iron Level 38 MCG/DL (50-170) Percent Iron Saturation 12.5 % (20-50) Red Blood Count 2.68 MIL/MM3 (4.00-5.30) 3.98 MIL/MM3 (4.00-5.30) Hemoglobin 7.8 GM/DL (11.6-15.3) 11.4 GM/DL (11.6-15.3) Hematocrit 24.0 % (35.0-46.0) 34.8 % (35.0-46.0) Red Cell Distribution Width 20.1 % (11.6-17.2) 18.3 % (11.6-17.2) Monocytes (%) (Auto) 9.0 % (0.0-8.0) Blood Urea Nitrogen 6 MG/DL (7-18) Test 12/31/17 06:34 Hemoglobin 11.3 GM/DL (11.6-15.3) Hematocrit 34.3 % (35.0-46.0) Imaging Last Impressions Abdomen/Pelvis CT 12/29/17 0000 Signed Impressions: Service Date/Time: Friday, December 29, 2017 19:26 - CONCLUSION: 1. Moderate bilateral pleural effusions with compressive atelectasis. Moderate anasarca with cardiomegaly. 2. Moderate constipation. 3. Distended bladder. 4. Previous right hip replacement. Aba Villegas MD PE at Discharge GENERAL: This is frail elderly female laying in bed, asleep but wakes up and tries to get out of bed because she wants to use the bathroom SKIN: not examined today CARDIOVASCULAR: Regular rate but tachycardic RESPIRATORY: has a wet cough but lungs seem clear. GASTROINTESTINAL: Abdomen soft, non-tender, nondistended. No guarding. MUSCULOSKELETAL: Extremities without edema. NEUROLOGICAL: Awake and alert, oriented to person, more worried about getting out of bed, follows simple commands Pt update on day of discharge asleep when I walk in but wakes up easily and tries to get out of bed. Daughter , at bedside, comfortable w discharge today. Daughter tells me that pt has been anemic for years and cause of anemia hasn't ever been found. She spoke w her PCP yesterday and PCP is aware that she was admitted and she will make sure that they f/u on her H&H. Pt doesn't have any concerns except wanting to get out of bed. pleasantly confused. Hospital Course Pt admitted for Severe anemia, received 3 units PRBC. Hb post transfusion was 11.3. Hb remained stable. hemoccult was pos and GI was consulted. they recommended endoscopy but POA didn't wish to proceed w it. Hb remained stable throughout hospital stay. POA comfortable w d/c plans. d/c to SNF. s/p IV venofer x 1. continue iron tabs. hematology evaluated the pt as well. f/u as an outpatient. Pt Condition on Discharge: Stable Discharge Disposition: Discharge to SNF Discharge Time: > 30 minutes Discharge Instructions DIET: Follow Instructions for: Heart Healthy Diet Activities you can perform: Regular-No Restrictions Follow up Referrals: Hematology - 2 Weeks PCP Follow-up - 1 Week Continued Medications: Amitriptyline (Amitriptyline) 50 Mg Tab 50 MG PO HS for Control Depression, #30 TAB [address] (Aspirin EC) 81 Mg Tabdr 81 MG PO DAILY, TAB 0 Refills Bisacodyl Supp (Dulcolax Supp) 10 Mg Supp 10 MG RECTAL DAILY PRN for CONSTIPATION, SUPP 0 Refills Digoxin (Digoxin) 0.125 Mg Tab 0.125 MG PO DAILY for Regulate Heart Beat, #30 TAB 0 Refills Ferrous Sulfate (Feosol) 325 Mg (65 Mg Iron) Tab 1 TAB PO DAILY for Nutritional Supplement, #30 TAB 0 Refills Fluticasone 12 GM Inh (Flovent Hfa 12 GM Inh) 110 Mcg/Act Inh 2 PUFF INH BID for Asthma Management, #1 INHALER 0 Refills Folic Acid (Folic Acid) 0.8 Mg Tab 800 MCG PO DAILY for Nutritional Supplement, TAB 0 Refills Furosemide (Furosemide) 20 Mg Tab 20 MG PO DAILY, TAB 0 Refills Hydrocodone/Acetaminophen (Hydrocodone-Acetamin 5-325 mg) 5 Mg-325 Mg Tablet 1 TAB PO Q4H PRN for PAIN, #40 TAB Ipratropium-Albuterol Inh (Combivent Respimat Inh) 20-100 Retirement/Act Aero 2 PUFF INH BID for Asthma Management, #1 INHALER 0 Refills Ipratropium-Albuterol Neb (Duoneb) 0.5-2.5 Mg/3 Ml Neb 1 NEBULE INH BID for Breathing Treatment, #120 NEBULE 0 Refills Isosorbide Mononitrate ER (Isosorbide Mononitrate ER) 30 Mg Deisy 30 MG PO DAILY for Prevent Chest Pain, #30 TAB 0 Refills Lactobacillus Acidophilus (Lactinex) 1 Chew 1 TAB CHEW DAILY for Nutritional Supplement, #30 TAB 0 Refills Multiple Vitamins W/ Minerals (Thera-M) 1 Tab 1 TAB PO DAILT for Nutritional Supplement, TAB 0 Refills Polyethylene Glycol 3350 Powder (Polyethylene Glycol 3350 Powder) 17 Gram Pow 17 GM PO BID for Constipation, #1 BOTTLE 0 Refills Simvastatin (Simvastatin) 20 Mg Tab 20 MG PO DAILY for Cholesterol Management, #30 TAB 0 Refills Verapamil ER 24 HR (Verapamil ER 24 HR) 240 Mg Tab 120 MG PO HS, #30 TAB 0 Refills Shabnam Monterroso MD Dec 31, 2017 15:13
[2017-12-31] MEDS: ACETAMINOPHEN/HYDROcodone 325 MG/5 MG TAB PO PRN (16:50)
[2017-12-31 17:02] VITALS: BP 139/69; PULSE 74; RESP 16; TEMP 98.4; O2SAT 99
== END 2017-12-31 18:48 | disposition home or self-care (01) ==
LOC: NEPE 16:13 → NEDA 18:13 → NEPFCDU 21:09
PROVIDERS: ADMIT Family Medicine; ATTEND Family Medicine
DX: D64.9 Anemia, unspecified (principal); L89.312 Pressure ulcer of right buttock, stage 2; I11.9 Hypertensive heart disease without heart failure; I48.91 Unspecified atrial fibrillation; I25.10 Atherosclerotic heart disease of native coronary artery without angina pectoris; J44.9 Chronic obstructive pulmonary disease, unspecified; J90 Pleural effusion, not elsewhere classified; J98.11 Atelectasis; E78.5 Hyperlipidemia, unspecified; F03.90 Unspecified dementia, unspecified severity, without behavioral disturbance, psychotic disturbance, mood disturbance, and anxiety; R32 Unspecified urinary incontinence; K59.00 Constipation, unspecified; K21.9 Gastro-esophageal reflux disease without esophagitis; Z86.73 Personal history of transient ischemic attack (TIA), and cerebral infarction without residual deficits; Z85.038 Personal history of other malignant neoplasm of large intestine; Z96.641 Presence of right artificial hip joint
CPT/HCPCS: 36430; 74177; 80048; 80076; 80162; 82247; 82248; 82272; 82607; 82728; 82747; 83010; 83540; 83615; 84466; 85014; 85018; 85025; 85610; 85730; 86850; 86880; 86900; 86901; 86920; 86922; 94640; 94664; 96361; 96365; 96375; 96376; 99285; G0378; J1756; J1940; J7050; P9016; Q9967; 83550

== ENCOUNTER 2018-01-13 20:19 | Inpatient (IN) | payer MEDICARE, OTHER ==
[~2018-01-13] VITALS: Ht 162.6 cm; Wt 54.9 kg
[~2018-01-13 20:19] MED LIST changes: -MACR100C2 PO; -XARE10TA PO; -[UNRECOGNIZED DRUG - OTHER] PO
[2018-01-13 20:38] VITALS: BP 116/56; PULSE 114; RESP 28; TEMP 98; O2SAT 100
[2018-01-13] MEDS ORDERED: VERA1TAB17 PO (20:51)
[2018-01-13] MEDS ORDERED: TYLE325T PO (20:51)
[2018-01-13] MEDS ORDERED: FLEETSR2 RECTAL (20:51)
[2018-01-13] MEDS ORDERED: MILKSUS PO (20:51)
[2018-01-13] MEDS ORDERED: POTA10CA PO (20:51)
[2018-01-13] MEDS ORDERED: CITRSOL4 PO (20:51)
[2018-01-13] MEDS ORDERED: ATOR10TA15 PO (20:51)
[2018-01-13] MEDS ORDERED: IPRAAER INH (20:51)
[2018-01-13] MEDS ORDERED: ASCO500T PO (20:51)
[2018-01-13] MEDS ORDERED: DULC10SU3 RECTAL (20:51)
--- NOTE | 2018-01-13 21:51 | RADRPT ---
EXAM DATE/TIME: 01/13/2018 21:14 [place] COMPARISON: No previous studies available for comparison. INDICATIONS : Pain due to fall. MEDICAL HISTORY : Dementia. Cardiovascular disease Carcinoma, colon. SURGICAL HISTORY : Rt hip. ENCOUNTER: Initial ACUITY: 1 day PAIN SCORE: Non-responsive. LOCATION: Left hip FINDINGS: A two view examination of the left hip was performed. There is mild osteoarthritis. Vascular calcific ations present. Previous right hip replacement. Multiple surgical clips overlying the left hemipelvis . CONCLUSION: 1. No acute fracture. 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 Aba Villegas MD on January 13, 2018 at 21:48 Board Certified Radiologist. This report was verified electronically.
[2018-01-13 22:04] LABS: AUTOMATED NEUTROPHIL # 3.7 TH/MM3 (1.8-7.7); BASOPHIL # 0.1 TH/MM3 (0-0.2); BASOPHIL % 1.3 % (0.0-2.0); EOSINOPHIL % 0.8 % (0.0-4.0); HEMATOCRIT 21.8 % (35.0-46.0); HEMOGLOBIN 7.2 GM/DL (11.6-15.3); LYMPH % 29.8 % (9.0-44.0); LYMPHOCYTE # 1.8 TH/MM3 (1.0-4.8); MEAN CELL VOLUME 90.7 FL (80.0-100.0); MEAN CORPUSCULAR HEMOGLOBIN 29.7 PG (27.0-34.0); MEAN CORPUSCULAR HGB CONC 32.8 % (32.0-36.0); MEAN PLATELET VOLUME 8.5 FL (7.0-11.0); MONO % 7.6 % (0.0-8.0); MONOCYTE # 0.5 TH/MM3 (0-0.9); NEUT % 60.5 % (16.0-70.0); PLATELET COUNT 261 TH/MM3 (150-450); RED BLOOD COUNT 2.41 MIL/MM3 (4.00-5.30); WHITE BLOOD COUNT 6.1 TH/MM3 (4.0-11.0)
[2018-01-13 22:34] LABS: ALBUMIN 2.2 GM/DL (3.4-5.0); ALT (GPT) 33 U/L (10-53); AST (GOT) 42 U/L (15-37); BICARBONATE 29.1 MEQ/L (21.0-32.0); BLOOD UREA NITROGEN 36 MG/DL (7-18); CALCIUM 7.8 MG/DL (8.5-10.1); CHLORIDE 105 MEQ/L (98-107); CREATININE 0.89 MG/DL (0.50-1.00); GLOMERULAR FILTRATION RATE 60 ML/MIN (>89); GLUCOSE,RANDOM 101 MG/DL (74-106); SODIUM (NA) 142 MEQ/L (136-145)
[2018-01-13 22:38] LABS: ALKALINE PHOSPHATASE 77 U/L (45-117); TOTAL BILIRUBIN ADULT 0.3 MG/DL (0.2-1.0); TOTAL PROTEIN 6.1 GM/DL (6.4-8.2); TROPONIN I 0.02 NG/ML (0.02-0.05)
[2018-01-13 23:00] VITALS: BP 132/60; PULSE 98; RESP 14; O2SAT 98
--- NOTE | 2018-01-13 23:57 | PD ---
HPI Chief Complaint: Abnormal Results Time Seen by Provider: 20:35 Travel History International Travel<30 days: No Contact w/Intl Traveler<30days: No Traveled to known affect area: No History of Present Illness HPI Patient is an 82-year-old female from a [facility] where they found that her blood level was 7.6 and sent her in for anemia. Her daughter says she lives anemic and she usually is around 8 hemoglobin. However the daughter was more worried because the patient's been having severe pain in her left hip. 2 months ago she had a replacement of her right hip. Now the patient who is a poor historian and is mildly demented is unable to give a good history but says that she does have pain in her left hip and with palpation she does have pain. No obvious deformity. The main complaint is patient has pain in the left hip localized it is hard to get her to tell me what a pain scale score apparently it started tonight and apparently they report that she fell from her wheelchair tonight at the [facility]. Patient's daughter reports that she often falls out of bed however she has been told that she fell out of her wheelchair and patient says that it is very hard for there is a locking front of it with the dinner tray and that it is impossible to fall out of the wheelchair. The event happened today a few hours before arrival and then the anemia was the main reason they sent her and. The daughter says she lives chronically with anemia and the daughter is not worried about the blood level she is more worried about left hip pain patient has a pulse in the dorsalis pedis in that left foot and no obvious deformity PFSH Past Medical History Anemia: Yes Atrial Fibrillation: Yes Blood Disorders: No Depression: Yes Heart Rhythm Problems: Yes (A-FIB) Cancer: Yes (COLON) Cardiovascular Problems: Yes High Cholesterol: Yes COPD: Yes Cerebrovascular Accident: Yes (2 aneurysm clamped) Coronary Artery Disease: Yes Dementia: Yes GERD: Yes Hypertension: Yes Neurologic: Yes (DEMENTIA, 2 ANEURSYM CLAMPS) Psychiatric: Yes (DEPRESSION) Respiratory: Yes Integumentary: Yes ?: Not : 3 Para: 3 Past Surgical History Hysterectomy: Yes (TOTAL) Social History Alcohol Use: No Tobacco Use: No Substance Use: No Allergies-Medications (Allergen,Severity, Reaction): Coded Allergies: amoxicillin (Verified Allergy, Unknown, 01/13/18) cefuroxime (Verified Allergy, Unknown, 01/13/18) cilostazol (Verified Allergy, Unknown, 01/13/18) clavulanic acid (Verified Allergy, Unknown, 01/13/18) lisinopril (Verified Allergy, Unknown, 01/13/18) Uncoded Allergies: PLETOL (Allergy, Severe, FACE SWELLS AND TONGUE SWELLS , 01/14/18) Reported Meds & Prescriptions Reported Meds & Active Scripts Active Lactinex (Lactobacillus Acidophilus) 1 Chew 1 Tab CHEW DAILY Hydrocodone-Acetamin 5-325 mg (Hydrocodone/Acetaminophen) 5 Mg-325 Mg Tablet 1 Tab PO Q4H PRN Reported [place]and (Candesartan Cilexetil) 16 Mg Tab 16 Mg PO DAILY Verapamil ER 24 HR (Verapamil HCl) 240 Mg Tab 120 Mg PO HS Tylenol (Acetaminophen) 325 Mg Tab 650 Mg PO Q6H PRN Potassium Chloride ER (Potassium Chloride) 10 Meq Cap 10 Meq PO BID Milk of Magnesia Liq (Magnesium Hydroxide) 400 Mg/5 Ml Susp 30 Ml PO Q6H PRN Fleet Pediatric Rectal (Sodium Biphosphate/Sodium Phosphate) 3.5-9.5 Gm/66 Ml Enem 66 Ml RECTAL DAILY PRN Dulcolax Supp (Bisacodyl) 10 Mg Supp 10 Mg RECTAL DAILY PRN Combivent Respimat Inh (Ipratropium-Albuterol Inh) 20-100 Intermediate/Act Aero 2 Puff INH QID Citroma Liq (Magnesium Citrate) 300 Ml Liq 300 Ml PO ONCE Atorvastatin (Atorvastatin Calcium) 10 Mg Tab 10 Mg PO HS Ascorbic Acid 500 Mg Tab 500 Mg PO BID Furosemide 20 Mg Tab 20 Mg PO BID Dulcolax Supp (Bisacodyl) 10 Mg Supp 10 Mg RECTAL DAILY PRN Isosorbide Mononitrate ER (Isosorbide Mononitrate) 30 Mg Deisy 30 Mg PO DAILY Polyethylene Glycol 3350 Powder (Polyethylene Glycol) 17 Gram Pow 17 Gm PO BID Flovent Hfa 12 GM Inh (Fluticasone Propionate) 110 Mcg/Act Inh 2 Puff INH BID Duoneb (Ipratropium-Albuterol Neb) 0.5-2.5 Mg/3 Ml Neb 1 Nebule INH BID Combivent Respimat Inh (Ipratropium-Albuterol Inh) 20-100 Intermediate/Act Aero 2 Puff INH BID Thera-M (Multiple Vitamins W/ Minerals) 1 Tab 1 Tab PO DAILT Folic Acid 0.8 Mg Tab 800 Mcg PO DAILY Feosol (Ferrous Sulfate) 325 Mg (65 Mg Iron) Tab 1 Tab PO BID Aspirin EC (Aspirin) 81 Mg Tabdr 81 Mg PO DAILY Digoxin 0.125 Mg Tab 0.125 Mg PO DAILY Review of Systems ROS Limitations: Poor Historian, Other: (dementia ) Physical Exam Narrative GENERAL: thin and alert Ox1 SKIN: Warm and dry. HEAD: Atraumatic. Normocephalic. EYES: Pupils equal and round. No scleral icterus. No injection or drainage. ENT: No nasal bleeding or discharge. Mucous membranes pink and moist. NECK: Trachea midline. No JVD. CARDIOVASCULAR: Regular rate and rhythm. RESPIRATORY: No accessory muscle use. Clear to auscultation. Breath sounds equal bilaterally. GASTROINTESTINAL: Abdomen soft, non-tender, nondistended. Hepatic and splenic margins not palpable. MUSCULOSKELETAL: Extremities Left hip pain with palpation no hematoma seem no swelling appreciated NEUROLOGICAL: Awake and alert. Psych Ox1 to person answers to her name and one word answers to questions Data Data Last Documented VS Vital Signs Date Time Temp Pulse Resp B/P (MAP) Pulse Ox O2 Delivery O2 Flow Rate FiO2 01/14/18 07:40 98 17 98 Nasal Cannula 2.00 01/14/18 03:00 132/62 (85) 01/13/18 20:38 98.0 Orders Orders Hip, Uni(Ap&Lat) Wo Ap Pelvis (01/13/18 ) Complete Blood Count With Diff (01/13/18 21:47) Comprehensive Metabolic Panel (01/13/18 21:47) Creatine Kinase (Cpk) (01/13/18 21:47) Troponin I (01/13/18 21:47) Type And Screen (01/14/18 07:32) Red Blood Cells (Rbc) (01/14/18 07:32) Blood Product Administration (01/14/18 07:32) Sodium Chlor 0.9% 250 Ml Inj (Ns 250 Ml (01/14/18 07:45) Sodium Chlor 0.9% 1000 Ml Inj (Ns 1000 M (01/14/18 07:45) Pantoprazole Inj (Protonix Inj) (01/14/18 07:45) Pantoprazole Inj (Protonix Inj) (01/14/18 07:45) Digoxin (01/14/18 07:36) Admit Order (Ed Use Only) (01/14/18 08:23) Labs Laboratory Tests Test 01/13/18 20:45 01/14/18 07:45 White Blood Count 6.1 TH/MM3 Red Blood Count 2.41 MIL/MM3 Hemoglobin 7.2 GM/DL Hematocrit 21.8 % Mean Corpuscular Volume 90.7 FL Mean Corpuscular Hemoglobin 29.7 PG Mean Corpuscular Hemoglobin Concent 32.8 % Red Cell Distribution Width 17.0 % Platelet Count 261 TH/MM3 Mean Platelet Volume 8.5 FL Neutrophils (%) (Auto) 60.5 % Lymphocytes (%) (Auto) 29.8 % Monocytes (%) (Auto) 7.6 % Eosinophils (%) (Auto) 0.8 % Basophils (%) (Auto) 1.3 % Neutrophils # (Auto) 3.7 TH/MM3 Lymphocytes # (Auto) 1.8 TH/MM3 Monocytes # (Auto) 0.5 TH/MM3 Eosinophils # (Auto) 0.0 TH/MM3 Basophils # (Auto) 0.1 TH/MM3 CBC Comment DIFF FINAL Differential Comment Blood Urea Nitrogen 36 MG/DL Creatinine 0.89 MG/DL Random Glucose 101 MG/DL Total Protein 6.1 GM/DL Albumin 2.2 GM/DL Calcium Level 7.8 MG/DL Alkaline Phosphatase 77 U/L Aspartate Amino Transf (AST/SGOT) 42 U/L Alanine Aminotransferase (ALT/SGPT) 33 U/L Total Bilirubin 0.3 MG/DL Sodium Level 142 MEQ/L Potassium Level 3.9 MEQ/L Chloride Level 105 MEQ/L Carbon Dioxide Level 29.1 MEQ/L Anion Gap 8 MEQ/L Estimat Glomerular Filtration Rate 60 ML/MIN Total Creatine Kinase 33 U/L Troponin I 0.02 NG/ML Digoxin Level 0.6 NG/ML [facility] Medical Decision Making Medical Screen Exam Complete: Yes Emergency Medical Condition: Yes Differential Diagnosis fall mecahanical vs syncope verse fractured HIP L vs contusion, vs other Narrative Course Xray negative for hip fracture and Hgb around same as always and daughter feels no need for intervention and prefers to go back to OR without admission without transfusion to [facility] as outpt with at Tom James MD Jan 13, 2018 23:57
[2018-01-14] VITALS (11 sets, daily range): BP systolic 128–157; BP diastolic 60–69; PULSE 90–98; RESP 17–20; TEMP 97.1–98.3; O2SAT 94–99
--- NOTE | 2018-01-14 07:27 | PD ---
Physical Exam Narrative Patient was seen by Dr. James and was ready to be discharged. I noticed hemoglobin was 7.2. Patient has worked up for hip injury and x-ray was negative. Hemoglobin was 11.3 at 2 weeks ago. Physical exam: Rectal exam Hemoccult positive. Data Data Last Documented VS Vital Signs Date Time Temp Pulse Resp B/P (MAP) Pulse Ox O2 Delivery O2 Flow Rate FiO2 01/14/18 03:00 96 17 132/62 (85) 99 Nasal Cannula 2.00 01/13/18 20:38 98.0 Orders Orders Hip, Uni(Ap&Lat) Wo Ap Pelvis (01/13/18 ) Complete Blood Count With Diff (01/13/18 21:47) Comprehensive Metabolic Panel (01/13/18 21:47) Creatine Kinase (Cpk) (01/13/18 21:47) Troponin I (01/13/18 21:47) Type And Screen (01/14/18 07:32) Red Blood Cells (Rbc) (01/14/18 07:32) Blood Product Administration (01/14/18 07:32) Sodium Chlor 0.9% 250 Ml Inj (Ns 250 Ml (01/14/18 07:45) Sodium Chlor 0.9% 1000 Ml Inj (Ns 1000 M (01/14/18 07:45) Pantoprazole Inj (Protonix Inj) (01/14/18 07:45) Pantoprazole Inj (Protonix Inj) (01/14/18 07:45) Labs Laboratory Tests Test 01/13/18 20:45 White Blood Count 6.1 TH/MM3 Red Blood Count 2.41 MIL/MM3 Hemoglobin 7.2 GM/DL Hematocrit 21.8 % Mean Corpuscular Volume 90.7 FL Mean Corpuscular Hemoglobin 29.7 PG Mean Corpuscular Hemoglobin Concent 32.8 % Red Cell Distribution Width 17.0 % Platelet Count 261 TH/MM3 Mean Platelet Volume 8.5 FL Neutrophils (%) (Auto) 60.5 % Lymphocytes (%) (Auto) 29.8 % Monocytes (%) (Auto) 7.6 % Eosinophils (%) (Auto) 0.8 % Basophils (%) (Auto) 1.3 % Neutrophils # (Auto) 3.7 TH/MM3 Lymphocytes # (Auto) 1.8 TH/MM3 Monocytes # (Auto) 0.5 TH/MM3 Eosinophils # (Auto) 0.0 TH/MM3 Basophils # (Auto) 0.1 TH/MM3 CBC Comment DIFF FINAL Differential Comment Blood Urea Nitrogen 36 MG/DL Creatinine 0.89 MG/DL Random Glucose 101 MG/DL Total Protein 6.1 GM/DL Albumin 2.2 GM/DL Calcium Level 7.8 MG/DL Alkaline Phosphatase 77 U/L Aspartate Amino Transf (AST/SGOT) 42 U/L Alanine Aminotransferase (ALT/SGPT) 33 U/L Total Bilirubin 0.3 MG/DL Sodium Level 142 MEQ/L Potassium Level 3.9 MEQ/L Chloride Level 105 MEQ/L Carbon Dioxide Level 29.1 MEQ/L Anion Gap 8 MEQ/L Estimat Glomerular Filtration Rate 60 ML/MIN Total Creatine Kinase 33 U/L Troponin I 0.02 NG/ML MDM Supervised Visit with SHASTA: No Narrative Course Patient was seen by ED physician. Patient was noted to have hemoglobin of 7.2. Rectal exam Hemoccult positive. Patient will be admitted to medical service with GI consultation. Protonix bolus and drip given. Type and cross 2 units of blood. Patient's daughter was notified. Diagnosis Primary Impression: GI bleed Qualified Codes: K92.2 - Gastrointestinal hemorrhage, unspecified Additional Impression: Severe anemia Vincent Lopez MD Jan 14, 2018 07:27
[2018-01-14] MEDS ORDERED: SODIUM CHLOR 0.9% 250 ML INJ 250 ML IV ONE (07:45)
[2018-01-14] MEDS ORDERED: PANTOPRAZOLE SODIUM 40 MG VIAL IV PUSH ONE (07:45)
[2018-01-14] MEDS ORDERED: SODIUM CHLOR 0.9% 1000 ML INJ 1,000 ML IV SCH (07:45)
[2018-01-14] MEDS: PANTOPRAZOLE INJ 80 MG in SODIUM CHLORIDE 0.9% INJ 100 ML IV SCH ×2 (08:02→14:36)
[2018-01-14] MEDS: SODIUM CHLOR 0.9% 1000 ML INJ 1,000 ML IV SCH ×2 (08:48→22:13)
[2018-01-14] MEDS ORDERED: FUROSEMIDE 20 MG/2 ML VIAL IV PUSH ONE (09:00)
--- NOTE | 2018-01-14 09:30 | PD.CONS ---
HPI History of Present Illness This is a 82 year old F sent by [facility] for evaluation of left hip pain after reports of a fall from wheelchair. Pt had an x-ray done which shows no acute fracture, however was found to be anemic and admitted for this. Pt has significant medical problems including dementia, HLD, CAD, GERD, HTM CVA w aneurysm clipping x 2, and REILLY. Pt has known dementia, spoke with daughter Divya Keyes on the phone and most of history obtained from her as well as chart review. Per pts daughter she has had a long history of anemia and is on iron supplementation at the [place]. Pt was recently admitted in December for anemia and was evaluated by our service, at that time pts daughter declined further work up with GI procedures. Per daughter pts blood count was so low at one point that she went to [facility] every day for two weeks to receive transfusions until blood count was normalized, this was back in 2003 and states until hip surgery has not needed any further replacement. Pt with no obvious signs of bleeding at this time, however Hemoccult positive stool in ER. Pt does not answer any questions appropriately during my exam so unable to obtain a review of systems. No mention of emesis in records. Pt has history of colon cancer and had part of her small intestine and colon removed in 1982. Last EGD and colon reported from 2006 and states it was done for work up of anemia and both exams came back normal. (Leny Corbin) PFSH Past Medical History HLD HTN CAD GERD CVA Depression Dementia REILLY A-fib COPD Past Surgical History Brain aneurysm clipping x 2 EGD Colonoscopy Bowel resection from colon cancer (Leny Corbin) Coded Allergies: amoxicillin (Verified Allergy, Unknown, 01/13/18) cefuroxime (Verified Allergy, Unknown, 01/13/18) cilostazol (Verified Allergy, Unknown, 01/13/18) clavulanic acid (Verified Allergy, Unknown, 01/13/18) lisinopril (Verified Allergy, Unknown, 01/13/18) Uncoded Allergies: PLETOL (Allergy, Severe, FACE SWELLS AND TONGUE SWELLS , 01/14/18) Review of Systems Unable to obtain (Leny Corbin) GI Exam Vitals I&O Vital Signs Date Time Temp Pulse Resp B/P (MAP) Pulse Ox O2 Delivery O2 Flow Rate FiO2 01/14/18 08:55 97.9 93 17 152/69 (96) 98 Nasal Cannula 2.00 01/14/18 08:49 94 Nasal Cannula 2.00 01/14/18 07:40 98 17 98 Nasal Cannula 2.00 01/14/18 03:00 96 17 132/62 (85) 99 Nasal Cannula 2.00 01/13/18 23:00 98 14 132/60 (84) 98 Nasal Cannula 2.00 01/13/18 20:38 98.0 114 28 116/56 (76) 100 Nasal Cannula 2.00 I/O 01/13/18 01/13/18 01/13/18 01/14/18 01/14/18 01/14/18 07:00 15:00 23:00 07:00 15:00 23:00 Intake Total 70 ml Balance 70 ml Intake IV Total 70 ml # Voids 1 1 # Bowel Movements 1 0 Imaging Last Impressions Hip X-Ray 01/13/18 0000 Signed Impressions: Service Date/Time: January 21:14 - CONCLUSION: 1. No acute fracture. 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 Aba Villegas MD Laboratory Test 01/13/18 20:45 01/14/18 07:45 01/14/18 08:50 White Blood Count 6.1 TH/MM3 Red Blood Count 2.41 MIL/MM3 Hemoglobin 7.2 GM/DL Hematocrit 21.8 % Mean Corpuscular Volume 90.7 FL Mean Corpuscular Hemoglobin 29.7 PG Mean Corpuscular Hemoglobin Concent 32.8 % Red Cell Distribution Width 17.0 % Platelet Count 261 TH/MM3 Mean Platelet Volume 8.5 FL Neutrophils (%) (Auto) 60.5 % Lymphocytes (%) (Auto) 29.8 % Monocytes (%) (Auto) 7.6 % Eosinophils (%) (Auto) 0.8 % Basophils (%) (Auto) 1.3 % Neutrophils # (Auto) 3.7 TH/MM3 Lymphocytes # (Auto) 1.8 TH/MM3 Monocytes # (Auto) 0.5 TH/MM3 Eosinophils # (Auto) 0.0 TH/MM3 Basophils # (Auto) 0.1 TH/MM3 CBC Comment DIFF FINAL Differential Comment Blood Urea Nitrogen 36 MG/DL Creatinine 0.89 MG/DL Random Glucose 101 MG/DL Total Protein 6.1 GM/DL Albumin 2.2 GM/DL Calcium Level 7.8 MG/DL Alkaline Phosphatase 77 U/L Aspartate Amino Transf (AST/SGOT) 42 U/L Alanine Aminotransferase (ALT/SGPT) 33 U/L Total Bilirubin 0.3 MG/DL Sodium Level 142 MEQ/L Potassium Level 3.9 MEQ/L Chloride Level 105 MEQ/L Carbon Dioxide Level 29.1 MEQ/L Anion Gap 8 MEQ/L Estimat Glomerular Filtration Rate 60 ML/MIN Total Creatine Kinase 33 U/L Troponin I 0.02 NG/ML Digoxin Level 0.6 NG/ML Physical Examination HEENT: Normocephalic CHEST: Even/unlabored CARDIAC: Irregularly irregular ABDOMEN: Soft, cachectic, bowel sounds active SKIN: Pale SAMPLE CARRIER: Awake, confused (Leny Corbin) Assessment and Plan Plan Assessment: - Anemia with positive Hemoccult stool in ER- H/H 7.2/21.8 on admission, pt with long history of REILLY, has in the past required multiple blood transfusions. Recent admission for anemia, hgb was 4.9, our service was following but pts daughter declined further work up with GI procedures at that time. Hematology, Dr. Pace was also following. No obvious blood in stool, no reports of emesis. Pt had advanced dementia so unable to obtain review of systems. Previous work up for anemia included EGD and colonoscopy in 2006 per daughter both exams were normal - History of colon cancer- S/P removal of part of the small intestine and colon in 1982 - Unintentional weight loss- Unsure of the exact amount- weighed 90 lbs in October- Of note, dementia seems to be progressing and pt is unable to feed herself - A-fib- no blood thinners listed in chart- Pts daughter is unsure which medication she is currently taking Plan: EGD/colonoscopy on Wednesday Obtain consent Clear liquid diet Wednesday NPO after MN Wednesday night Unlikely to tolerate GoLytely- would recommend Mag Citrate if renal function improves Prep not yet ordered Monitor H/H over the weekend Transfuse as needed Further recommendations based on clinical course and findings of above Pt has been seen and examined by myself and Dr. Jaimes and this note is written on his behalf (Leny Corbin) Physician Comments Seen and examined with SCHOOL COUNSELOR, no active bleeding. GI paulino planned for wednesday. Transfuse as needed. Discussed with daughter at the bedside. Thank you (Brittaney Jaimes MD) Leny Corbin Jan 14, 2018 09:30 Brittaney Jaimes MD Jan 14, 2018 17:30
--- NOTE | 2018-01-14 11:43 | HHI.HP ---
[facility] Unknown Admission Diagnosis GI bleed. Severe anemia. Diagnoses: (1) GI bleed Diagnosis: Principal Chief Complaint: left hip pain Travel History International Travel<30 Days: No Contact w/Intl Traveler <30 Da: No Traveled to Known Affected Are: No History of Present Illness patient is a 82 y/o female with history of dementia,CAD, CVA, anemia who was sent to ER with worsening anemia. she was admitted to this hospital for anemia last month. she was evaluated by GI last admission but POA declined the GI work- up. she was discharged after blood transfusion. per ER record she had a fall in long-term last night after which she started to have some pain to the left hip. however she had a blood work done and when she was found to have worsening anemia she was sent back to ER. information was limited due to the patient being demented. however she was in no acute distress at the time of my evaluation and denied pain. Review of Systems Constitutional: DENIES: Fever, Weight loss, Chills, Night Sweats Eyes: DENIES: Blurred vision, Diplopia, Vision loss, Double Vision Ears, nose, mouth, throat: DENIES: Tinnitus, Vertigo, Throat pain, Epistaxis Respiratory: DENIES: Apneas, Cough, Snoring, Wheezing, Hemoptysis, Sputum production, Shortness of breath Cardiovascular: DENIES: Chest pain, Palpitations, Syncope, Dyspnea on Exertion , PND, Lower Extremity Edema, Orthopnea, Claudication Gastrointestinal: COMPLAINS OF: Bloody stools, DENIES: Abdominal pain, Black stools, Constipation, Diarrhea, Nausea, Vomiting, Difficulty Swallowing, Anorexia Genitourinary: DENIES: Urinary frequency, Urgency, Hematuria, Dysuria Musculoskeletal: DENIES: Joint pain, Muscle aches, Stiffness, Joint Swelling Integumentary: DENIES: Rash Neurologic: DENIES: Abnormal gait, Headache, Localized weakness, Paresthesias, Seizures, Speech Problems, Tremor, Poor Balance Psychiatric: DENIES: Anxiety, Confusion, Mood changes, Depression, Hallucinations, Agitation, Suicidal Ideation, Homicidal Ideation, Delusions Past Family Social History Past Medical History HLD HTN CAD GERD CVA Depression Dementia REILLY A-fib COPD Past Surgical History Brain aneurysm clipping x 2 EGD Colonoscopy Bowel resection from colon cancer Reported Medications Verapamil ER 24 HR (Verapamil HCl) 240 Mg Tab 120 Mg PO HS Tylenol (Acetaminophen) 325 Mg Tab 650 Mg PO Q6H PRN Potassium Chloride ER (Potassium Chloride) 10 Meq Cap 10 Meq PO BID Milk of Magnesia Liq (Magnesium Hydroxide) 400 Mg/5 Ml Susp 30 Ml PO Q6H PRN Fleet Pediatric Rectal (Sodium Biphosphate/Sodium Phosphate) 3.5-9.5 Gm/66 Ml Enem 66 Ml RECTAL DAILY PRN Dulcolax Supp (Bisacodyl) 10 Mg Supp 10 Mg RECTAL DAILY PRN Combivent Respimat Inh (Ipratropium-Albuterol Inh) 20-100 Long-Term/Act Aero 2 Puff INH QID Citroma Liq (Magnesium Citrate) 300 Ml Liq 300 Ml PO ONCE Atorvastatin (Atorvastatin Calcium) 10 Mg Tab 10 Mg PO HS Ascorbic Acid 500 Mg Tab 500 Mg PO BID Furosemide 20 Mg Tab 20 Mg PO BID Dulcolax Supp (Bisacodyl) 10 Mg Supp 10 Mg RECTAL DAILY PRN Isosorbide Mononitrate ER (Isosorbide Mononitrate) 30 Mg Deisy 30 Mg PO DAILY Polyethylene Glycol 3350 Powder (Polyethylene Glycol) 17 Gram Pow 17 Gm PO BID Flovent Hfa 12 GM Inh (Fluticasone Propionate) 110 Mcg/Act Inh 2 Puff INH BID Duoneb (Ipratropium-Albuterol Neb) 0.5-2.5 Mg/3 Ml Neb 1 Nebule INH BID Combivent Respimat Inh (Ipratropium-Albuterol Inh) 20-100 Long-Term/Act Aero 2 Puff INH BID Thera-M (Multiple Vitamins W/ Minerals) 1 Tab 1 Tab PO DAILT Folic Acid 0.8 Mg Tab 800 Mcg PO DAILY Feosol (Ferrous Sulfate) 325 Mg (65 Mg Iron) Tab 1 Tab PO BID Aspirin EC (Aspirin) 81 Mg Tabdr 81 Mg PO DAILY Digoxin 0.125 Mg Tab 0.125 Mg PO DAILY Allergies: Coded Allergies: amoxicillin (Verified Allergy, Unknown, 01/13/18) cefuroxime (Verified Allergy, Unknown, 01/13/18) cilostazol (Verified Allergy, Unknown, 01/13/18) clavulanic acid (Verified Allergy, Unknown, 01/13/18) lisinopril (Verified Allergy, Unknown, 01/13/18) Active Ordered Medications Inpatient Medications Furosemide (Lasix Inj) 20 mg ONCE ONCE IV PUSH Last administered on 01/14/18at 08:55; Start 01/14/18 at 09:00; Stop 01/14/18 at 09:01; Status DC Pantoprazole Sodium (Protonix Inj) 40 mg ONCE ONCE IV PUSH Last administered on 01/14/18at 07:56; Start 01/14/18 at 07:45; Stop 01/14/18 at 07:46; Status DC Pantoprazole Sodium 80 mg/ Sodium Chloride 100 ml @ 10 mls/hr CONTINUOUS IV Last administered on 01/14/18at 08:02; Start 01/14/18 at 07:45 Sodium Chloride 1,000 ml @ 70 mls/hr [id number] IV Last administered on 01/14/18at 08:48; Start 01/14/18 at 09:00 Family History could not be obtained. Social History long-term resident. Physical Exam Vital Signs Vital Signs Date Time Temp Pulse Resp B/P (MAP) Pulse Ox O2 Delivery O2 Flow Rate FiO2 01/14/18 11:11 97.8 92 18 136/60 97 01/14/18 10:04 98.3 93 18 133/64 (87) 98 Nasal Cannula 2.00 01/14/18 08:55 97.9 93 17 152/69 (96) 98 Nasal Cannula 2.00 01/14/18 08:49 94 Nasal Cannula 2.00 01/14/18 07:40 98 17 98 Nasal Cannula 2.00 01/14/18 03:00 96 17 132/62 (85) 99 Nasal Cannula 2.00 01/13/18 23:00 98 14 132/60 (84) 98 Nasal Cannula 2.00 01/13/18 20:38 98.0 114 28 116/56 (76) 100 Nasal Cannula 2.00 Physical Exam GENERAL: This is a well-nourished, well-developed patient, in no apparent distress. SKIN: No rashes, ecchymoses or lesions. Cool and dry. HEAD: Atraumatic. Normocephalic. No temporal or scalp tenderness. EYES: Pupils equal round and reactive. Extraocular motions intact. No scleral icterus. No injection or drainage. ENT: Nose without bleeding, purulent drainage or septal hematoma. Throat without erythema, tonsillar hypertrophy or exudate. Uvula midline. Airway patent. NECK: Trachea midline. No JVD or lymphadenopathy. Supple, nontender, no meningeal signs. CARDIOVASCULAR: Regular rate and rhythm without murmurs, gallops, or rubs. RESPIRATORY: Clear to auscultation. Breath sounds equal bilaterally. No wheezes , rales, or rhonchi. GASTROINTESTINAL: Abdomen soft, non-tender, nondistended. No hepato-splenomegaly , or palpable masses. No guarding. MUSCULOSKELETAL: Extremities without clubbing, cyanosis, or edema. No joint tenderness, effusion, or edema noted. No calf tenderness. Negative Homans sign bilaterally. NEUROLOGICAL:awake and alert but demented. Laboratory Laboratory Tests Test 01/13/18 20:45 01/14/18 07:45 01/14/18 08:50 White Blood Count 6.1 Red Blood Count 2.41 Hemoglobin 7.2 Hematocrit 21.8 Mean Corpuscular Volume 90.7 Mean Corpuscular Hemoglobin 29.7 Mean Corpuscular Hemoglobin Concent 32.8 Red Cell Distribution Width 17.0 Platelet Count 261 Mean Platelet Volume 8.5 Neutrophils (%) (Auto) 60.5 Lymphocytes (%) (Auto) 29.8 Monocytes (%) (Auto) 7.6 Eosinophils (%) (Auto) 0.8 Basophils (%) (Auto) 1.3 Neutrophils # (Auto) 3.7 Lymphocytes # (Auto) 1.8 Monocytes # (Auto) 0.5 Eosinophils # (Auto) 0.0 Basophils # (Auto) 0.1 CBC Comment DIFF FINAL Differential Comment Blood Urea Nitrogen 36 Creatinine 0.89 Random Glucose 101 Total Protein 6.1 Albumin 2.2 Calcium Level 7.8 Alkaline Phosphatase 77 Aspartate Amino Transf (AST/SGOT) 42 Alanine Aminotransferase (ALT/SGPT) 33 Total Bilirubin 0.3 Sodium Level 142 Potassium Level 3.9 Chloride Level 105 Carbon Dioxide Level 29.1 Anion Gap 8 Estimat Glomerular Filtration Rate 60 Total Creatine Kinase 33 Troponin I 0.02 Digoxin Level 0.6 Result Diagram: 01/13/18204401/13/182044 Imaging Last Impressions Hip X-Ray 01/13/18 0000 Signed Impressions: Service Date/Time: January 21:14 - CONCLUSION: 1. No acute fracture. 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 Aba Villegas MD Caprini VTE Risk Assessment Caprini VTE Risk Assessment: Mod/High Risk (score >= 2) Caprini Risk Assessment Model Point Value = 1 Point Value = 2 Point Value = 3 Point Value = 5 Age 41-60 Minor surgery BMI > 25 kg/m2 Swollen legs Varicose veins or History of unexplained or recurrent spontaneous Oral contraceptives or hormone replacement Sepsis (< 1 month) Serious lung disease, including pneumonia (< 1 month) Abnormal pulmonary function Acute myocardial infarction Congestive heart failure (< 1 month) History of inflammatory bowel disease Medical patient at bed rest Age 61-74 Arthroscopic surgery Major open surgery (> 45 min) Laparoscopic surgery (> 45 min) Malignancy Confined to bed (> 72 hours) Immobilizing plaster cast Central venous access Age >= 75 History of VTE Family history of VTE Factor V Leiden Prothrombin [id number] Lupus anticoagulant Anticardiolipin antibodies Elevated serum homocysteine Heparin-induced thrombocytopenia Other congenital or acquired thrombophilia Stroke (< 1 month) Elective arthroplasty Hip, pelvis, or leg fracture Acute spinal cord injury (< 1 month) Prophylaxis Regimen Total Risk Factor Score Risk Level Prophylaxis Regimen 0-1 Low Early ambulation 2 Moderate Order ONE of the following: *Sequential Compression Device (SCD) *Heparin 5000 units SQ BID 3-4 Higher Order ONE of the following medications: *Heparin 5000 units SQ TID *Enoxaparin/Lovenox 40 mg SQ daily (WT < 150 kg, CrCl > 30 mL/min) *Enoxaparin/Lovenox 30 mg SQ daily (WT < 150 kg, CrCl > 10-29 mL/min) *Enoxaparin/Lovenox 30 mg SQ BID (WT < 150 kg, CrCl > 30 mL/min) AND/OR *Sequential Compression Device (SCD) 5 or more Highest Order ONE of the following medications: *Heparin 5000 units SQ TID (Preferred with Epidurals) *Enoxaparin/Lovenox 40 mg SQ daily (WT < 150 kg, CrCl > 30 mL/min) *Enoxaparin/Lovenox 30 mg SQ daily (WT < 150 kg, CrCl > 10-29 mL/min) *Enoxaparin/Lovenox 30 mg SQ BID (WT < 150 kg, CrCl > 30 mL/min) AND *Sequential Compression Device (SCD) Assessment and Plan Assessment and Plan A/P - acute on chronic anemia due to GI bleed transfuse with PRBC transfusion- continue PPI and monitor H/H- GI consulted. -left hip pain; XR with no acute fracture; continue pain control and consult PT -COPD- resume home meds- neb treatment as needed. -hypertension; resume home meds and monitor the BP closely. -DVT prophylaxis with SCD's- no chemical prophylaxis due to GI bleed. -consult case management for dc planning. -DNR status per my discussion with the daughter. Discussed Condition With ER physician and the patient. the daughter. Physician Certification 2 Midnight Certification Type: Admission for Inpatient Services Order for Inpatient Services The services are ordered in accordance with Medicare regulations or non- Medicare payer requirements, as applicable. In the case of services not specified as inpatient-only, they are appropriately provided as inpatient services in accordance with the 2-midnight benchmark. Estimated LOS (days): 2 days is the estimated time the patient will need to remain in the hospital, assuming treatment plan goals are met and no additional complications. Post-Hospital Plan: SNF Problem Qualifiers (1) GI bleed: Qualified Codes: K92.2 - Gastrointestinal hemorrhage, unspecified Isaias Palmer MD Jan 14, 2018 11:43
[2018-01-14] MEDS: ACETAMINOPHEN/HYDROcodone 325 MG/5 MG TAB PO PRN ×2 (12:37→16:58)
[2018-01-14] MEDS: FERROUS SULFATE 325 MG (65 MG ELEMENTAL IRON) TAB PO SCH (13:26)
[2018-01-14] MEDS ORDERED: ATAC16TA PO (14:33)
[2018-01-14 19:13] LABS: HEMATOCRIT 27.6 % (35.0-46.0); HEMOGLOBIN 9.3 GM/DL (11.6-15.3)
[2018-01-14 19:23] LABS: PROTHROMBIN TIME - PATIENT 10.6 SEC (9.8-11.6)
[2018-01-14] MEDS: ATORVASTATIN 10 MG TAB PO SCH (20:20)
[2018-01-14] MEDS: TIOTROPIUM BROMIDE 18 MCG INH INH SCH (20:23)
[2018-01-14] MEDS: ALBUTEROL SULFATE 90 MCG/ACT HFA 8 GM INHALER INH SCH (20:23)
[2018-01-14] MEDS: FLUTICASONE PROPIONATE 110 MCG/ACT 12 GM INHALER INH SCH (20:23)
[2018-01-14] MEDS ORDERED: VERAPAMIL HCL 120 MG SUSTAINED RELEASE TAB PO SCH (21:00)
[2018-01-15] VITALS (11 sets, daily range): BP systolic 65–148; BP diastolic 37–67; PULSE 83–122; RESP 18–42; TEMP 97–98.8; O2SAT 89–99
[2018-01-15] MEDS: PANTOPRAZOLE INJ 80 MG in SODIUM CHLORIDE 0.9% INJ 100 ML IV SCH ×2 (01:16→10:36)
[2018-01-15] MEDS: ACETAMINOPHEN/HYDROcodone 325 MG/5 MG TAB PO PRN ×3 (05:04→13:51)
[2018-01-15] MEDS: DIGOXIN 0.125 MG TAB PO SCH (09:08)
[2018-01-15] MEDS: ISOSORBIDE MONONITRATE 30 MG CR TAB (IMDUR) PO SCH (09:08)
[2018-01-15] MEDS: FERROUS SULFATE 325 MG (65 MG ELEMENTAL IRON) TAB PO SCH (09:08)
[2018-01-15] MEDS: SODIUM CHLOR 0.9% 1000 ML INJ 1,000 ML IV SCH (09:09)
[2018-01-15] MEDS: ALBUTEROL SULFATE 90 MCG/ACT HFA 8 GM INHALER INH SCH ×4 (09:10→21:59)
[2018-01-15] MEDS: TIOTROPIUM BROMIDE 18 MCG INH INH SCH (09:10)
[2018-01-15] MEDS: FLUTICASONE PROPIONATE 110 MCG/ACT 12 GM INHALER INH SCH ×2 (09:12→21:59)
--- NOTE | 2018-01-15 10:28 | HHI.PR ---
Subjective Remarks in no acute distress. seems to be in severe pain to the left hip. no GI bleed over night. seen with the RN and PT at the bedside. Objective Vitals Vital Signs Date Time Temp Pulse Resp B/P (MAP) Pulse Ox O2 Delivery O2 Flow Rate FiO2 01/15/18 08:00 98.0 83 18 147/58 (87) 99 01/15/18 04:00 97.5 91 18 127/60 (82) 97 01/15/18 00:00 97.9 103 22 123/67 (85) 94 01/14/18 20:00 97.8 91 20 128/63 (84) 95 01/14/18 17:39 94 Nasal Cannula 2.00 01/14/18 15:10 98.1 90 18 157/68 97 01/14/18 14:48 97.1 90 18 146/63 99 01/14/18 11:40 98.0 97 18 147/63 (91) 97 Nasal Cannula 2.00 01/14/18 11:34 98.0 98 17 147/63 97 01/14/18 11:11 97.8 92 18 136/60 97 I/O 01/14/18 01/14/18 01/14/18 01/15/18 01/15/18 01/15/18 07:00 15:00 23:00 07:00 15:00 23:00 Intake Total 695 ml 2313 ml 902.6 ml 450 ml Balance 695 ml 2313 ml 902.6 ml 450 ml Intake Oral 240 ml 240 ml IV Total 170 ml 1663 ml 662.6 ml 450 ml Packed Cells 400 ml 400 ml Blood Product IV Normal Saline Flush 125 ml 10 ml # Voids 1 1 2 # Bowel Movements 0 0 0 Result Diagram: 01/14/18 1832 01/13/18 2045 Imaging Last Impressions Hip X-Ray 01/13/18 0000 Signed Impressions: Service Date/Time: January 21:14 - CONCLUSION: 1. No acute fracture. 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 Aba Villegas MD Objective Remarks GENERAL: elderly female, in no apparent distress. CARDIOVASCULAR: Regular rate and regular rhythm without murmurs, gallops, or rubs. RESPIRATORY: Clear to auscultation. Breath sounds equal bilaterally. No wheezes , rales, or rhonchi. GASTROINTESTINAL: Abdomen soft, non-tender, nondistended. Normal, active bowel sounds MUSCULOSKELETAL: Extremities without clubbing, cyanosis, or edema. NEURO: Awake but demented. Medications and IVs Inpatient Medications Acetaminophen/ Hydrocodone Bitart ([place] 5-325 Mg) 1 tab Q4H PRN PO PAIN 1-10 Last administered on 01/15/18 09:08; Start 01/14/18 at 13:00 Albuterol Sulfate (Albuterol Neb) 1.25 mg Q2HR NEB PRN NEB SHORTNESS OF BREATH ; Start 01/14/18 at 13:00 Albuterol Sulfate (Proair Hfa Inh) 2 puff QID INH Last administered on 09:10; Start 01/14/18 at 21:00 Atorvastatin Calcium (Lipitor) 10 mg HS PO Last administered on 01/14/18 20:20 ; Start 01/14/18 at 21:00 Digoxin (Lanoxin) 0.125 mg DAILY PO Last administered on 01/15/18 09:08; Start 01/15/18 at 09:00 Ferrous Sulfate (Ferrous Sulfate) 325 mg DAILY PO Last administered on 09:08; Start 01/14/18 at 13:00 Fluticasone Propionate (Flovent Hfa 110 Mcg Inh) 2 puff BID INH Last administered on 01/15/18 09:12; Start 01/14/18 at 21:00 Furosemide (Lasix Inj) 20 mg ONCE ONCE IV PUSH Last administered on 01/14/18 08:55; Start 01/14/18 at 09:00; Stop 01/14/18 at 09:01; Status DC Isosorbide Mononitrate (Imdur) 30 mg DAILY PO Last administered on 01/15/18 09: 08; Start 01/15/18 at 09:00 Pantoprazole Sodium (Protonix Inj) 40 mg ONCE ONCE IV PUSH Last administered on 01/14/18 07:56; Start 01/14/18 at 07:45; Stop 01/14/18 at 07:46; Status DC Pantoprazole Sodium 80 mg/ Sodium Chloride 100 ml @ 10 mls/hr CONTINUOUS IV Last administered on 01/15/18 01:16; Start 01/14/18 at 07:45 Sodium Chloride 1,000 ml @ 70 mls/hr [id number] IV Last administered on 01/15/18at 09:09; Start 01/14/18 at 09:00 Tiotropium [place] (Spiriva Inh) 18 mcg DAILY INH Last administered on at 09:10; Start 01/14/18 at 21:00 Verapamil HCl (Isoptin Sr) 120 mg HS PO Last administered on 01/14/18at 20:20; Start 01/14/18 at 21:00 A/P Problem List: (1) GI bleed ICD Code: K92.2 - Gastrointestinal hemorrhage, unspecified Status: Acute Assessment and Plan A/P - acute on chronic anemia due to GI bleed transfused with PRBC transfusion and H/H has improved.- continue PPI and monitor H/H- GI consult appreciated and plan for EGD/ colonoscopy on Wednesday. -left hip pain; XR with no acute fracture however still with severe left hip pain; will check CT of the left hip- continue pain control and consulted PT -COPD- resumed home meds- neb treatment as needed. -hypertension; resumed home meds and monitor the BP closely. -DVT prophylaxis with SCD's- no chemical prophylaxis due to GI bleed. -consulted case management for dc planning. -DNR status per my discussion with the daughter. Discharge Planning awaiting GI w/u- Problem Qualifiers (1) GI bleed: Qualified Codes: K92.2 - Gastrointestinal hemorrhage, unspecified Isaias Palmer MD Jan 15, 2018 10:28
[2018-01-15] MEDS ORDERED: NITR0.4S SL (15:46)
[2018-01-15] MEDS: NITROGLYCERIN 0.4 MG SL 25 TABS/BTL SL PRN ×3 (15:50→16:02)
[2018-01-15] MEDS ORDERED: LORazepam 2 MG/ML VIAL IV PRN (17:00)
[2018-01-15] MEDS: MORPHINE SULFATE 2 MG/ML SYRINGE IV PRN (17:02)
[2018-01-15 17:09] LABS: AUTOMATED NEUTROPHIL # 6.7 TH/MM3 (1.8-7.7); BASOPHIL # 0.1 TH/MM3 (0-0.2); BASOPHIL % 0.6 % (0.0-2.0); EOSINOPHIL # 0.1 TH/MM3 (0-0.4); EOSINOPHIL % 0.6 % (0.0-4.0); HEMATOCRIT 27.2 % (35.0-46.0); LYMPH % 33.9 % (9.0-44.0); LYMPHOCYTE # 3.9 TH/MM3 (1.0-4.8); MEAN CELL VOLUME 93.4 FL (80.0-100.0); MEAN CORPUSCULAR HEMOGLOBIN 30.9 PG (27.0-34.0); MEAN CORPUSCULAR HGB CONC 33.1 % (32.0-36.0); MEAN PLATELET VOLUME 8.9 FL (7.0-11.0); MONO % 6.6 % (0.0-8.0); MONOCYTE # 0.8 TH/MM3 (0-0.9); NEUT % 58.3 % (16.0-70.0); PLATELET COUNT 207 TH/MM3 (150-450); RED BLOOD COUNT 2.91 MIL/MM3 (4.00-5.30); RED CELL DISTRIBUTION WIDTH 17.2 % (11.6-17.2); WHITE BLOOD COUNT 11.4 TH/MM3 (4.0-11.0)
[2018-01-15 17:36] LABS: TROPONIN I LESS THAN 0.02 NG/ML (0.02-0.05)
[2018-01-15 17:37] LABS: ALBUMIN 2.3 GM/DL (3.4-5.0); ALKALINE PHOSPHATASE 60 U/L (45-117); ALT (GPT) 20 U/L (10-53); AST (GOT) 19 U/L (15-37); BICARBONATE 24.9 MEQ/L (21.0-32.0); BLOOD UREA NITROGEN 16 MG/DL (7-18); CALCIUM 7.7 MG/DL (8.5-10.1); CHLORIDE 110 MEQ/L (98-107); CREATININE 0.81 MG/DL (0.50-1.00); GLOMERULAR FILTRATION RATE 67 ML/MIN (>89); GLUCOSE,RANDOM 130 MG/DL (74-106); SODIUM (NA) 143 MEQ/L (136-145); TOTAL BILIRUBIN ADULT 0.5 MG/DL (0.2-1.0); TOTAL PROTEIN 5.9 GM/DL (6.4-8.2)
--- NOTE | 2018-01-15 18:12 | RADRPT ---
EXAM DATE/TIME: 01/15/2018 16:48 [facility] COMPARISON: CHEST SINGLE AP, November 25, 2017, 17:39. INDICATIONS : Chest pain. HALICAT. MEDICAL HISTORY : None. SURGICAL HISTORY : Right total hip. ENCOUNTER: Initial ACUITY: 1 day PAIN SCORE: 2/10 LOCATION: chest FINDINGS: The heart size is normal. The lungs are grossly clear. There is fracturing of the lower left rib. Nadir cification is seen around the renal heads likely from calcific tendinitis. There is a levocurvature o f the thoracic spine and a more prominent dextrocurvature the thoracolumbar region. CONCLUSION: 1. No acute cardiopulmonary process. 2. Lower left rib fracture. Hussein Byrne MD on January 15, 2018 at 18:08 Board Certified Radiologist. This report was verified electronically.
--- NOTE | 2018-01-15 20:21 | RADRPT ---
EXAM DATE/TIME: 01/15/2018 19:38 [facility] COMPARISON: No previous studies available for comparison. INDICATIONS : Left hip pain. RADIATION DOSE: 27.43 CTDIvol (mGy) MEDICAL HISTORY : Stroke. Carcinoma, colon. Hypertension. SURGICAL HISTORY : Hysterectomy. partial colectomy ENCOUNTER: Initial ACUITY: 1 day PAIN SCALE: 7/10 LOCATION: Left hip TECHNIQUE: Volumetric scanning of the hip was performed. Using automated exposure control and adjustment of the mA and/or kV according to patient size, radiation dose was kept as low as reasonably achievable to o btain optimal diagnostic quality images. DICOM format image data is available electronically for rev iew and comparison. FINDINGS: BONES: No evidence of fracture. Alignment is within normal limits. There is a right hip prosthesis present. There is chronic hypertrophic change of the pubic symphysis. JOINTS: No evidence of joint narrowing or effusion. SOFT TISSUES: There is a hematoma seen in the lateral subcutaneous tissues at the left upper thigh region measuring 10.3 cm in AP dimension, 4.6 cm in transverse dimension and extending over a 10.6 cm length. Clips a re seen in the left pelvis. There is a bowel anastomosis sutures seen at the rectum. CONCLUSION: 1. No bony fracture is seen. 2. Large superficial hematoma in the lateral left upper thigh region. Hussein Byrne MD on January 15, 2018 at 20:13 Board Certified Radiologist. This report was verified electronically.
[2018-01-15] MEDS: ATORVASTATIN 10 MG TAB PO SCH (21:58)
[2018-01-15] MEDS: RESP: ALBUTEROL 1.25 MG/3 ML NEB (PRN) NEB (23:15)
[2018-01-16] VITALS (8 sets, daily range): BP systolic 132–166; BP diastolic 59–75; PULSE 77–101; RESP 17–24; TEMP 97.5–100.3; O2SAT 94–97
[2018-01-16] MEDS: SODIUM CHLOR 0.9% 1000 ML INJ 1,000 ML IV SCH ×2 (00:34→09:21)
[2018-01-16] MEDS: PANTOPRAZOLE INJ 80 MG in SODIUM CHLORIDE 0.9% INJ 100 ML IV SCH ×3 (00:52→23:00)
[2018-01-16] MEDS: FERROUS SULFATE 325 MG (65 MG ELEMENTAL IRON) TAB PO SCH (09:16)
[2018-01-16] MEDS: DIGOXIN 0.125 MG TAB PO SCH (09:16)
[2018-01-16] MEDS: ALBUTEROL SULFATE 90 MCG/ACT HFA 8 GM INHALER INH SCH ×4 (09:17→21:37)
[2018-01-16] MEDS: TIOTROPIUM BROMIDE 18 MCG INH INH SCH (09:18)
[2018-01-16] MEDS: FLUTICASONE PROPIONATE 110 MCG/ACT 12 GM INHALER INH SCH ×2 (09:18→21:37)
--- NOTE | 2018-01-16 09:37 | HHI.PR ---
Subjective Remarks Niko was called yesterday afternoon-; was tachycardic and complaining of chest pain. today; in no acute distress. seems fairly comfortable. low grade fever earlier. Objective Vitals Vital Signs Date Time Temp Pulse Resp B/P (MAP) Pulse Ox O2 Delivery O2 Flow Rate FiO2 01/16/18 08:00 100.3 77 18 164/68 (100) 97 01/16/18 04:00 99.0 91 22 136/61 (86) 97 01/16/18 00:00 99.6 90 22 165/70 (101) 94 01/15/18 23:18 93 Nasal Cannula 2.00 01/15/18 20:00 98.8 90 22 148/67 (94) 97 01/15/18 18:34 98.2 105 20 131/62 (85) 95 01/15/18 16:14 120 42 81/51 (61) 89 01/15/18 16:07 117 24 116/54 (74) 92 01/15/18 16:04 121 65/37 (46) 90 01/15/18 16:02 122 25 90 01/15/18 12:00 97.0 97 20 132/60 (84) 95 I/O 01/15/18 01/15/18 01/15/18 01/16/18 01/16/18 01/16/18 07:00 15:00 23:00 07:00 15:00 23:00 Intake Total 902.6 ml 495 ml 601 ml 1157 ml Balance 902.6 ml 495 ml 601 ml 1157 ml Intake Oral 240 ml 0 ml IV Total 662.6 ml 495 ml 601 ml 1157 ml # Voids 2 3 # Bowel Movements 0 1 Result Diagram: 01/15/18 1647 01/15/18 1647 Imaging Last Impressions Lower Extremity CT 01/15/18 0000 Signed Impressions: Service Date/Time: Monday, January 15, 2018 19:38 - CONCLUSION: 1. No bony fracture is seen. 2. Large superficial hematoma in the lateral left upper thigh region. Hussein Byrne MD Chest X-Ray 01/15/18 0000 Signed Impressions: Service Date/Time: Monday, January 15, 2018 16:48 - CONCLUSION: 1. No acute cardiopulmonary process. 2. Lower left rib fracture. Hussein Byrne MD Hip X-Ray 01/13/18 0000 Signed Impressions: Service Date/Time: January 21:14 - CONCLUSION: 1. No acute fracture. 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 Aba Villegas MD Objective Remarks GENERAL: elderly female, in no apparent distress. CARDIOVASCULAR: Regular rate and regular rhythm without murmurs, gallops, or rubs. RESPIRATORY: Clear to auscultation. Breath sounds equal bilaterally. No wheezes , rales, or rhonchi. GASTROINTESTINAL: Abdomen soft, non-tender, nondistended. Normal, active bowel sounds MUSCULOSKELETAL: Extremities without clubbing, cyanosis, or edema. NEURO: Awake but demented. Medications and IVs Inpatient Medications Acetaminophen/ Hydrocodone Bitart ([place] 5-325 Mg) 1 tab Q4H PRN PO PAIN 1-10 Last administered on 01/15/18 13:51; Start 01/14/18 at 13:00 Albuterol Sulfate (Albuterol Neb) 1.25 mg Q2HR NEB PRN NEB SHORTNESS OF BREATH Last administered on 01/15/18 23:15; Start 01/14/18 at 13:00 Albuterol Sulfate (Proair Hfa Inh) 2 puff QID INH Last administered on 09:17; Start 01/14/18 at 21:00 Atorvastatin Calcium (Lipitor) 10 mg HS PO Last administered on 01/15/18 21:58 ; Start 01/14/18 at 21:00 Digoxin (Lanoxin) 0.125 mg DAILY PO Last administered on 01/16/18 09:16; Start 01/15/18 at 09:00 Ferrous Sulfate (Ferrous Sulfate) 325 mg DAILY PO Last administered on 09:16; Start 01/14/18 at 13:00 Fluticasone Propionate (Flovent Hfa 110 Mcg Inh) 2 puff BID INH Last administered on 01/16/18 09:18; Start 01/14/18 at 21:00 Furosemide (Lasix Inj) 20 mg ONCE ONCE IV PUSH Last administered on 01/14/18 08:55; Start 01/14/18 at 09:00; Stop 01/14/18 at 09:01; Status DC Isosorbide Mononitrate (Imdur) 30 mg DAILY PO Last administered on 01/15/18 09: 08; Start 01/15/18 at 09:00; Status Future Hold Lorazepam (Ativan Inj) 0.5 mg Q8H PRN IV ANXIETY; Start 01/15/18 at 17:00 Morphine Sulfate (Morphine Inj) 1 mg Q4H PRN IV PAIN 1-10 Last administered on 01/15/18 17:02; Start 01/15/18 at 17:00 Nitroglycerin (Nitrostat Sl) 0.4 mg Q5M PRN SL CHEST PAIN Last administered on 01/15/18 16:02; Start 01/15/18 at 16:00; Status Future Hold Pantoprazole Sodium (Protonix Inj) 40 mg ONCE ONCE IV PUSH Last administered on 01/14/18 07:56; Start 01/14/18 at 07:45; Stop 01/14/18 at 07:46; Status DC Pantoprazole Sodium 80 mg/ Sodium Chloride 100 ml @ 10 mls/hr CONTINUOUS IV Last administered on 01/16/18 00:52; Start 01/14/18 at 07:45 Sodium Chloride 1,000 ml @ 100 mls/hr Q10H IV Last administered on 01/16/18 09 :21; Start 01/14/18 at 09:00 Tiotropium [place] (Spiriva Inh) 18 mcg DAILY INH Last administered on 09:18; Start 01/14/18 at 21:00 Verapamil HCl (Isoptin Sr) 120 mg HS PO Last administered on 01/14/18at 20:20; Start 01/14/18 at 21:00; Status Future Hold A/P Problem List: (1) GI bleed ICD Code: K92.2 - Gastrointestinal hemorrhage, unspecified Status: Acute Assessment and Plan A/P - acute on chronic anemia due to GI bleed transfused with PRBC transfusion and H/H has improved.- continue PPI and monitor H/H- GI consult appreciated and plan for EGD/ colonoscopy on Wednesday. -fluid overload; stop IV fluid- place jo cath and one dose of lasix today- continue to monitor. -left hip pain; XR with no acute fracture however still with severe left hip pain- CT of the left hip with superficial hematoma continue pain control/ fall precautions. -low grade fever; will check UA and monitor temps -left rib fractures; continue pain control. -COPD- resumed home meds- neb treatment as needed. -hypertension; hold Verapamil due to hypotension yesterday- continue to monitor. -CAD- hold aspirin due to GI bleed- resume imdur - -DVT prophylaxis with SCD's- no chemical prophylaxis due to GI bleed. -consulted case management for dc planning. -DNR status per my discussion with the daughter. Discharge Planning d/w the POA at the bedside; will consult palliative in light of dementia and multiple comorbidities- d/w ; GI w/u on hold for now. Problem Qualifiers (1) GI bleed: Qualified Codes: K92.2 - Gastrointestinal hemorrhage, unspecified Isaias Palmer MD Jan 16, 2018 09:37
[2018-01-16] MEDS: ISOSORBIDE MONONITRATE 30 MG CR TAB (IMDUR) PO SCH (11:01)
--- NOTE | 2018-01-16 12:08 | HHI.GIFU ---
GI Follow-up Note Consult Follow-up Subjective: Patient laying in bed comfortably, no new complaints. No bleeding reported Objective: PHYSICAL EXAMINATION: Vitals signs stable No fever HEENT: Pupils round and reactive to light; normocephalic; atraumatic; no jaundice. Throat is clear. NECK: Neck is supple, no JVD, no lymphadenopathy. CHEST: Chest is clear to auscultation and percussion. CARDIAC: Regular rate and rhythm with no murmur gallop or rubs. ABDOMEN: Soft, nondistended, nontender; no hepatosplenomegaly; bowel sounds are present in all four quadrants. EXTREMITIES: No clubbing, cyanosis, or edema. SKIN: Normal; no rash; no jaundice. 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 Available Data (labs, X- Rays, Procedues) : Last Impressions Lower Extremity CT 01/15/18 0000 Signed Impressions: Service Date/Time: Monday, January 15, 2018 19:38 - CONCLUSION: 1. No bony fracture is seen. 2. Large superficial hematoma in the lateral left upper thigh region. Hussein Byrne MD Chest X-Ray 01/15/18 0000 Signed Impressions: Service Date/Time: Monday, January 15, 2018 16:48 - CONCLUSION: 1. No acute cardiopulmonary process. 2. Lower left rib fracture. Hussein Byrne MD Hip X-Ray 01/13/18 0000 Signed Impressions: Service Date/Time: January 21:14 - CONCLUSION: 1. No acute fracture. 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 Aba Villegas MD Laboratory Tests Test 01/14/18 18:32 01/15/18 16:38 01/15/18 16:40 01/15/18 16:47 Hemoglobin 9.3 GM/DL 9.0 GM/DL Hematocrit 27.6 % 27.2 % Prothrombin Time 10.6 SEC Prothromb Time International Ratio 1.0 RATIO Blood Gas Puncture Site LT RADIAL Blood Gas Patient Temperature 98.6 Blood Gas HCO3 25 mmol/L Blood Gas Base Excess 1.0 mmol/L Blood Gas Oxygen Saturation 90 % Arterial Blood pH 7.43 Arterial Blood Partial Pressure CO2 39 mmHg Arterial Blood Partial Pressure O2 65 mmHg Arterial Blood Oxygen Content 11.2 Vol % Arterial Blood Carboxyhemoglobin 2.6 % Arterial Blood Methemoglobin 1.1 % Blood Gas Hemoglobin 8.8 G/DL Oxygen Delivery Device NASAL CANNULA Blood Gas Liter Flow 4 L/M White Blood Count 11.4 TH/MM3 Red Blood Count 2.91 MIL/MM3 Mean Corpuscular Volume 93.4 FL Mean Corpuscular Hemoglobin 30.9 PG Mean Corpuscular Hemoglobin Concent 33.1 % Red Cell Distribution Width 17.2 % Platelet Count 207 TH/MM3 Mean Platelet Volume 8.9 FL Neutrophils (%) (Auto) 58.3 % Lymphocytes (%) (Auto) 33.9 % Monocytes (%) (Auto) 6.6 % Eosinophils (%) (Auto) 0.6 % Basophils (%) (Auto) 0.6 % Neutrophils # (Auto) 6.7 TH/MM3 Lymphocytes # (Auto) 3.9 TH/MM3 Monocytes # (Auto) 0.8 TH/MM3 Eosinophils # (Auto) 0.1 TH/MM3 Basophils # (Auto) 0.1 TH/MM3 CBC Comment DIFF FINAL Differential Comment Blood Urea Nitrogen 16 MG/DL Creatinine 0.81 MG/DL Random Glucose 130 MG/DL Total Protein 5.9 GM/DL Albumin 2.3 GM/DL Calcium Level 7.7 MG/DL Alkaline Phosphatase 60 U/L Aspartate Amino Transf (AST/SGOT) 19 U/L Alanine Aminotransferase (ALT/SGPT) 20 U/L Total Bilirubin 0.5 MG/DL Sodium Level 143 MEQ/L Potassium Level 3.8 MEQ/L Chloride Level 110 MEQ/L Carbon Dioxide Level 24.9 MEQ/L Anion Gap 8 MEQ/L Estimat Glomerular Filtration Rate 67 ML/MIN Total Creatine Kinase 29 U/L Troponin I LESS THAN 0.02 NG/ML ASSESSMENT/PLAN: Seen and examined, Helicat called overnight. No active bleeding reported. Discussed with Dr. Flores. JULIAN paulino on hold for now till stable from cardio-pulmonary standpoint. It was a pleasure seeing Divya Dyson. Thank you for this consult. Entered by: Brittaney Ortiz MD Jan 16, 2018 12:08
[2018-01-16] MEDS: RESP: ALBUTEROL 1.25 MG/3 ML NEB (PRN) NEB (13:27)
[2018-01-16] MEDS ORDERED: FUROSEMIDE 20 MG/2 ML VIAL IV PUSH ONE (14:00)
[2018-01-16 15:18] LABS: BACTERIA, URINE RARE /hpf; BILIRUBIN, URINE NEG (NEG); BLOOD, URINE NEG (NEG); GLUCOSE,URINE NEG (NEG); KETONE, URINE NEG (NEG); MUCUS URINE FEW /lpf (OCC); NITRITE,URINE NEG (NEG); SQUAMOUS EPITHELIAL CELL URINE <1 /hpf (0-5); URINE COLOR LIGHT-YELLOW (YELLW/STRAW); URINE LEUKOCYTE ESTERASE NEG (NEG)
--- NOTE | 2018-01-16 16:48 | EKG ---
Date Performed: 01/15/2018 Time Performed: 16:33:41 PTAGE: 82 years EKG: SINUS TACHYCARDIA POSSIBLE INFERIOR MYOCARDIAL INFARCTION , PROBABLY OLD Since the previous tracing, no significant change noted POOR INITIAL ANTERIOR FORCES PERSIST ABNORMAL RHYTHM ECG PREVIOUS TRACING : 11/26/2017 20.22 DOCTOR: Coleman Arriola Interpretating Date/Time 01/16/2018 16:47:42
[2018-01-16] MEDS: ATORVASTATIN 10 MG TAB PO SCH (21:38)
[2018-01-16] MEDS: ACETAMINOPHEN/HYDROcodone 325 MG/5 MG TAB PO PRN (21:38)
[2018-01-17 04:19] VITALS: BP 139/65; PULSE 72; RESP 18; TEMP 98.4; O2SAT 98
[2018-01-17 08:00] VITALS: BP 162/72; PULSE 73; RESP 24; TEMP 97.7; O2SAT 97
[2018-01-17] MEDS: DIGOXIN 0.125 MG TAB PO SCH (08:39)
[2018-01-17] MEDS: ALBUTEROL SULFATE 90 MCG/ACT HFA 8 GM INHALER INH SCH ×4 (08:40→20:23)
[2018-01-17] MEDS: TIOTROPIUM BROMIDE 18 MCG INH INH SCH (08:40)
[2018-01-17] MEDS: FLUTICASONE PROPIONATE 110 MCG/ACT 12 GM INHALER INH SCH ×2 (08:40→20:23)
[2018-01-17] MEDS: FERROUS SULFATE 325 MG (65 MG ELEMENTAL IRON) TAB PO SCH (08:40)
--- NOTE | 2018-01-17 10:53 | HHI.GIFU ---
Subjective Remarks "My stomach hurts. I don't know where." otherwise nonverbal, drowsy. (Christy Verdugo) Objective Vitals I&O Vital Signs Date Time Temp Pulse Resp B/P (MAP) Pulse Ox O2 Delivery O2 Flow Rate FiO2 01/17/18 08:00 97.7 73 24 162/72 (102) 97 01/17/18 04:19 98.4 72 18 139/65 (89) 98 01/16/18 23:47 98.2 95 17 150/68 (95) 96 01/16/18 20:54 97.5 97 18 138/65 (89) 95 01/16/18 19:49 Nasal Cannula 2.00 01/16/18 16:00 98.2 101 24 132/59 (83) 97 01/16/18 13:27 97 Nasal Cannula 2.00 01/16/18 12:00 98.4 85 24 166/75 (105) 95 I/O 01/16/18 01/16/18 01/16/18 01/17/18 01/17/18 01/17/18 07:00 15:00 23:00 07:00 15:00 23:00 Intake Total 1157 ml 360 ml 0 ml Output Total 650 ml 400 ml Balance 1157 ml 360 ml -650 ml -400 ml Intake Oral 0 ml 360 ml 0 ml IV Total 1157 ml Output Urine Total 650 ml 400 ml # Voids 3 1 # Bowel Movements 1 1 Laboratory Laboratory Tests Test 01/16/18 14:58 Urine Color LIGHT-YELLOW Urine Turbidity CLEAR Urine pH 6.0 Urine Specific [place] 1.012 Urine Protein NEG Urine Glucose (UA) NEG Urine Ketones NEG Urine Occult Blood NEG Urine Nitrite NEG Urine Bilirubin NEG Urine Urobilinogen LESS THAN 2.0 Urine Leukocyte Esterase NEG Urine RBC 1 Urine WBC 1 Urine Squamous Epithelial Cells <1 Urine Bacteria RARE Urine Mucus FEW Microscopic Urinalysis Comment CULT NOT INDICATED Imaging Last Impressions Lower Extremity CT 01/15/18 0000 Signed Impressions: Service Date/Time: Monday, January 15, 2018 19:38 - CONCLUSION: 1. No bony fracture is seen. 2. Large superficial hematoma in the lateral left upper thigh region. Hussein Byrne MD Chest X-Ray 01/15/18 0000 Signed Impressions: Service Date/Time: Monday, January 15, 2018 16:48 - CONCLUSION: 1. No acute cardiopulmonary process. 2. Lower left rib fracture. Hussein Byrne MD Hip X-Ray 01/13/18 0000 Signed Impressions: Service Date/Time: January 21:14 - CONCLUSION: 1. No acute fracture. 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 Aba Villegas MD Physical Exam HEENT: normocephalic; atraumatic; no jaundice. CHEST: CTA CARDIAC: RRR ABDOMEN: Soft, mild lower abd distention, nontender; no hepatosplenomegaly; bowel sounds are present in all four quadrants. EXTREMITIES: No clubbing, cyanosis, or edema. thin SKIN: Normal; no rash; no jaundice. 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 Recent admission for anemia, hgb was 4.9, our service was following but pts daughter declined further work up with GI procedures at that time. Hematology, Dr. Pace was also following. No obvious blood in stool, no reports of emesis. Pt had advanced dementia so unable to obtain review of systems. Previous work up for anemia included EGD and colonoscopy in 2006 per daughter both exams were normal - History of colon cancer- S/P removal of part of the small intestine and colon in 1982 - Unintentional weight loss- Unsure of the exact amount- weighed 90 lbs in October- Of note, dementia seems to be progressing and pt is unable to feed herself - A-fib- no blood thinners listed in chart- Pts daughter is unsure which medication she is currently taking 01/17/18 GI w/u on hold. palliative care consult pending. pt drowsy. halicat over weekend. c/o abd pain but unable to further qualityf Plan: GI w/u on hold await palliative care consult monitor labs Transfuse as needed Further recommendations based on clinical course and findings of above Pt has been seen and examined by myself and Dr. Oconnell and this note is written on his behalf (Christy Verdugo) Plan Patient was seen and examined, agree with above-noted, patient daughter who is power of deputy attorney general will like to have has proceed with upper endoscopy and colonoscopy to find out with strong with her mom, we will start prepping her for : EGD tomorrow, will obtain consent from the power of deputy attorney general (Sandra Oconnell MD) Christy Verdugo Jan 17, 2018 10:53 Sanrda Oconnell MD Jan 17, 2018 18:55
--- NOTE | 2018-01-17 11:39 | HHI.PR ---
Subjective Remarks in no acute distress. still with some pain to the left hip. d/w the RN. Objective Vitals Vital Signs Date Time Temp Pulse Resp B/P (MAP) Pulse Ox O2 Delivery O2 Flow Rate FiO2 01/17/18 08:00 97.7 73 24 162/72 (102) 97 01/17/18 04:19 98.4 72 18 139/65 (89) 98 01/16/18 23:47 98.2 95 17 150/68 (95) 96 01/16/18 20:54 97.5 97 18 138/65 (89) 95 01/16/18 19:49 Nasal Cannula 2.00 01/16/18 16:00 98.2 101 24 132/59 (83) 97 01/16/18 13:27 97 Nasal Cannula 2.00 01/16/18 12:00 98.4 85 24 166/75 (105) 95 I/O 01/16/18 01/16/18 01/16/18 01/17/18 01/17/18 01/17/18 07:00 15:00 23:00 07:00 15:00 23:00 Intake Total 1157 ml 360 ml 0 ml Output Total 650 ml 400 ml Balance 1157 ml 360 ml -650 ml -400 ml Intake Oral 0 ml 360 ml 0 ml IV Total 1157 ml Output Urine Total 650 ml 400 ml # Voids 3 1 # Bowel Movements 1 1 Result Diagram: 01/15/18 1647 01/15/18 1647 Imaging Last Impressions Lower Extremity CT 01/15/18 0000 Signed Impressions: Service Date/Time: Monday, January 15, 2018 19:38 - CONCLUSION: 1. No bony fracture is seen. 2. Large superficial hematoma in the lateral left upper thigh region. Hussein Byrne MD Chest X-Ray 01/15/18 0000 Signed Impressions: Service Date/Time: Monday, January 15, 2018 16:48 - CONCLUSION: 1. No acute cardiopulmonary process. 2. Lower left rib fracture. Hussein Byrne MD Hip X-Ray 01/13/18 0000 Signed Impressions: Service Date/Time: January 21:14 - CONCLUSION: 1. No acute fracture. 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 Aba Villegas MD Objective Remarks GENERAL: elderly female, in no apparent distress. CARDIOVASCULAR: Regular rate and regular rhythm without murmurs, gallops, or rubs. RESPIRATORY: Clear to auscultation. Breath sounds equal bilaterally. No wheezes , rales, or rhonchi. GASTROINTESTINAL: Abdomen soft, non-tender, nondistended. Normal, active bowel sounds MUSCULOSKELETAL: Extremities without clubbing, cyanosis, or edema. NEURO: Awake but demented. Medications and IVs Inpatient Medications Acetaminophen/ Hydrocodone Bitart ([place] 5-325 Mg) 1 tab Q4H PRN PO PAIN 1-10 Last administered on 01/16/18 21:38; Start 01/14/18 at 13:00 Albuterol Sulfate (Albuterol Neb) 1.25 mg Q2HR NEB PRN NEB SHORTNESS OF BREATH Last administered on 01/16/18 13:27; Start 01/14/18 at 13:00 Albuterol Sulfate (Proair Hfa Inh) 2 puff QID INH Last administered on 08:40; Start 01/14/18 at 21:00 Atorvastatin Calcium (Lipitor) 10 mg HS PO Last administered on 01/16/18 21:38 ; Start 01/14/18 at 21:00 Digoxin (Lanoxin) 0.125 mg DAILY PO Last administered on 01/17/18 08:39; Start 01/15/18 at 09:00 Ferrous Sulfate (Ferrous Sulfate) 325 mg DAILY PO Last administered on 08:40; Start 01/14/18 at 13:00 Fluticasone Propionate (Flovent Hfa 110 Mcg Inh) 2 puff BID INH Last administered on 01/17/18 08:40; Start 01/14/18 at 21:00 Furosemide (Lasix Inj) 20 mg ONCE ONCE IV PUSH Last administered on 01/16/18 14:35; Start 01/16/18 at 14:00; Stop 01/16/18 at 14:01; Status DC Isosorbide Mononitrate (Imdur) 30 mg DAILY PO Last administered on 01/16/18 11: 01; Start 01/15/18 at 09:00; Status Future hold Lorazepam (Ativan Inj) 0.5 mg Q8H PRN IV ANXIETY; Start 01/15/18 at 17:00 Morphine Sulfate (Morphine Inj) 1 mg Q4H PRN IV PAIN 1-10 Last administered on 01/15/18 17:02; Start 01/15/18 at 17:00 Nitroglycerin (Nitrostat Sl) 0.4 mg Q5M PRN SL CHEST PAIN Last administered on 01/15/18 16:02; Start 01/15/18 at 16:00; Status Future Hold Pantoprazole Sodium (Protonix Inj) 40 mg ONCE ONCE IV PUSH Last administered on 01/14/18at 07:56; Start 01/14/18 at 07:45; Stop 01/14/18 at 07:46; Status DC Pantoprazole Sodium 80 mg/ Sodium Chloride 100 ml @ 10 mls/hr CONTINUOUS IV Last administered on 01/16/18at 23:00; Start 01/14/18 at 07:45 Sodium Chloride 1,000 ml @ 75 mls/hr [id number] IV Last administered on 01/16/18 09:21; Start 01/14/18 at 09:00; Stop 01/16/18 at 13:25; Status DC Tiotropium [place] (Spiriva Inh) 18 mcg DAILY INH Last administered on at 08:40; Start 01/14/18 at 21:00 Verapamil HCl (Isoptin Sr) 120 mg HS PO Last administered on 01/14/18at 20:20; Start 01/14/18 at 21:00; Status Future Hold A/P Problem List: (1) GI bleed ICD Code: K92.2 - Gastrointestinal hemorrhage, unspecified Status: Acute Assessment and Plan A/P - acute on chronic anemia due to GI bleed transfused with PRBC transfusion and H/H has improved.- continue PPI and monitor H/H- GI consult appreciated - GI w/u on hold awaiting palliative care evaluation. -fluid overload; improved -stopped IV fluid- received a dose of Lasix yesterday - jo cath in place- continue to monitor. -left hip pain; XR with no acute fracture - CT of the left hip with superficial hematoma continue pain control/ fall precautions. -low grade fever; resolved- UA and CXR negative. -left rib fractures; continue pain control. -COPD- resumed home meds- neb treatment as needed. -hypertension; hold Verapamil for now- continue to monitor. -CAD- hold aspirin due to GI bleed- resumed imdur - -DVT prophylaxis with SCD's- no chemical prophylaxis due to GI bleed. -consulted case management for dc planning. -DNR status per my discussion with the daughter. Discharge Planning previously d/w the POA at the bedside; palliative care consulted. Problem Qualifiers (1) GI bleed: Qualified Codes: K92.2 - Gastrointestinal hemorrhage, unspecified Isaias Palmer MD Jan 17, 2018 11:39
[2018-01-17 12:00] VITALS: BP 167/72; PULSE 72; RESP 24; TEMP 97.2; O2SAT 95
--- NOTE | 2018-01-17 12:44 | PD.CONS ---
Consult Service Palliative Care Consult Requested By Dr. Palmer Primary Care Physician Unknown Reason for Consultation a. To assist with evaluation and management of symptoms including: Pain, debility b. To assist medical decision maker(s) with: better understanding of current medical conditions; weighing benefits/burdens of medical treatment options; making medical treatment decisions. HPI History of Present Illness Mrs. Dyson is a 82-year-old with a past medical history significant of anemia, colon cancer, dementia, CAD, atrial fibrillation, CVA, hyperlipidemia, COPD and GERD. Patient was brought into the ER on 01/13/18 for further evaluation of a hemoglobin of 7.6, left hip pain. It was also reported in ER that per patient' s daughter, patient fell the night prior to presenting to the ER at retirement. Patient has been having severe pain in the left hip status post right hip replacement 2 months ago. Patient was evaluated by GI last admission and had a hemoglobin of 4.9 and patient`s POA declined any GI workup to look for source of bleeding, but agreed to blood transfusion prior to discharge. Per patient`s daughter, she did not want her to go through colonoscopy because she had just had surgery and was very weak. She was also followed by hematology during that admission. ER course: * Vital signs: Temperature 98.0F, pulse 98, respirations 14, BP 132/60, O2 saturation 98% on 2 L nasal cannula * Hip x-ray revealed no acute fracture. Mild osteoarthritis of the left hip. * Rectal exam Hemoccult positive * Protonix bolus and infusion started * [facility] 2 units PRBC transfused on 01/14/18. GI Dr. Jaimes consulted on 01/14/18 for evaluation of patient with Hemoccult positive, recommended EGD/colonoscopy. Physical therapy consulted, recommended physical therapy at rehab. Patient complaining of pain to left hip. Lower extremity CT 01/15/18 revealed large superficial hematoma in the lateral left upper thigh with no bony fracture. Chest x-ray 01/15/18 revealed lower left rib fracture and no acute cardiopulmonary process. Clinical course complicated with increasing abdominal pain. Palliative care consult to assist with establishing goals of care. Met with patient`s daughter Divya Meadows (Fricke), who is her health care surrogate in patient`s room. Patient is alert, and oriented to self only and pleasantly confused. Vital signs stable. Obtained psychosocial history, past medical history. Daughter narrated patient` s trajectory of decline since patient had a hip fracture in November 2017. Patient`s daughter confirmed that she wants patient as a DNR/DNI. Expressed that she would not want to put her mother though a major surgery but would like her to undergo colonoscopy to find the source of bleed. She mentioned that if it is something that can be corrected during colonoscopy , she is amenable to that but if patient would need correction of problem with major surgical intervention, she would reassess/rethink his goals of care. Introduced hospice philosophy and benefits. Patient`s daughter stated that at this point she is not ready for hospice but was appreciative of information provided. Patient`s daughter understands that patient may continue to decline medically and hospice will be the best option for her mother. Patient's daughter expressed that prior to patient getting more confused due to dementia, she told her daughter that quality of life is very important to her and she "would not want to just exist". Will assist daughter with completion of community DNR. . Function/Cognitive Trajectory Patient lived at home with her daughter prior to hip fracture and surgery in November 2017. At that time she was independent with all his ADLs. Patient has been hospitalized 3 times since Nov to now and has not been back home since then. Patient came from the [facility] where she was doing rehabilitation. History of falls at the retirement. Patient uses a Rollator and wheelchair. Report of unintentional weight loss per Daughter. Unable to quantify. Patient currently requires assistance with most of her ADLs. In rehab she was able to ambulate with a walker up to 60 feet max. . Review of Systems ROS Limitations: Poor Historian, Other (Patient has dementia) Constitutional: COMPLAINS OF: Weight loss, Pain, Generalized weakness, DENIES: Fever, Chills, Night Sweats Eyes: DENIES: Blurred vision, Eye inflammation, Vision loss, Double Vision Ears, nose, mouth, throat: DENIES: Tinnitus, Vertigo, Throat pain, Epistaxis Respiratory: COMPLAINS OF: Cough, DENIES: Snoring, Shortness of breath Cardiovascular: DENIES: Chest pain, Palpitations Gastrointestinal: COMPLAINS OF: Bloody stools, DENIES: Abdominal pain, Black stools, Constipation, Diarrhea, Nausea, Vomiting, Difficulty Swallowing, Anorexia Hematologic/Lymphatics: COMPLAINS OF: Bruising Neurologic: DENIES: Speech Problems Psychiatric: COMPLAINS OF: Confusion Other ROS: ROS obtained from EMR, patient`s daughter and clinical observation. . Past Family Social History Coded Allergies: amoxicillin (Verified Allergy, Unknown, 01/13/18) cefuroxime (Verified Allergy, Unknown, 01/13/18) cilostazol (Verified Allergy, Unknown, 01/13/18) clavulanic acid (Verified Allergy, Unknown, 01/13/18) lisinopril (Verified Allergy, Unknown, 01/13/18) Uncoded Allergies: PLETOL (Allergy, Severe, FACE SWELLS AND TONGUE SWELLS , 01/14/18) Past Medical History Hypertension Coronary artery disease Atrial fibrillation Hyperlipidemia Cerebrovascular accident GERD COPD Depression Dementia Iron deficiency anemia Colon cancer . Past Surgical History Brain aneurysm clipping x 2 EGD Colonoscopy Right hip bipolar replacement arthroplasty Bowel resection from colon cancer . Reported Medications Lactinex (Lactobacillus Acidophilus) 1 Chew 1 Tab CHEW DAILY Hydrocodone-Acetamin 5-325 mg (Hydrocodone/Acetaminophen) 5 Mg-325 Mg Tablet 1 Tab PO Q4H PRN Nitrostat SL (Nitroglycerin) 0.4 Mg Subl 0.4 Mg SL DIRECTED PRN Atacand (Candesartan Cilexetil) 16 Mg Tab 16 Mg PO DAILY Verapamil ER 24 HR (Verapamil HCl) 240 Mg Tab 120 Mg PO HS Tylenol (Acetaminophen) 325 Mg Tab 650 Mg PO Q6H PRN Potassium Chloride ER (Potassium Chloride) 10 Meq Cap 10 Meq PO BID Milk of Magnesia Liq (Magnesium Hydroxide) 400 Mg/5 Ml Susp 30 Ml PO Q6H PRN Fleet Pediatric Rectal (Sodium Biphosphate/Sodium Phosphate) 3.5-9.5 Gm/66 Ml Enem 66 Ml RECTAL DAILY PRN Dulcolax Supp (Bisacodyl) 10 Mg Supp 10 Mg RECTAL DAILY PRN Combivent Respimat Inh (Ipratropium-Albuterol Inh) 20-100 Retirement/Act Aero 2 Puff INH QID Citroma Liq (Magnesium Citrate) 300 Ml Liq 300 Ml PO ONCE Atorvastatin (Atorvastatin Calcium) 10 Mg Tab 10 Mg PO HS Ascorbic Acid 500 Mg Tab 500 Mg PO BID Furosemide 20 Mg Tab 20 Mg PO BID Dulcolax Supp (Bisacodyl) 10 Mg Supp 10 Mg RECTAL DAILY PRN Isosorbide Mononitrate ER (Isosorbide Mononitrate) 30 Mg Deisy 30 Mg PO DAILY Polyethylene Glycol 3350 Powder (Polyethylene Glycol) 17 Gram Pow 17 Gm PO BID Flovent Hfa 12 GM Inh (Fluticasone Propionate) 110 Mcg/Act Inh 2 Puff INH BID Duoneb (Ipratropium-Albuterol Neb) 0.5-2.5 Mg/3 Ml Neb 1 Nebule INH BID Combivent Respimat Inh (Ipratropium-Albuterol Inh) 20-100 Retirement/Act Aero 2 Puff INH BID Thera-M (Multiple Vitamins W/ Minerals) 1 Tab 1 Tab PO DAILT Folic Acid 0.8 Mg Tab 800 Mcg PO DAILY Feosol (Ferrous Sulfate) 325 Mg (65 Mg Iron) Tab 1 Tab PO BID Aspirin EC (Aspirin) 81 Mg Tabdr 81 Mg PO DAILY Digoxin 0.125 Mg Tab 0.125 Mg PO DAILY . Current Medications Medications (Trade) Dose Ordered Sig/Brenton Route Start Time Stop Time Status Last Admin Pantoprazole Sodium 80 mg/ Sodium Chloride 100 ml @ 10 mls/hr CONTINUOUS IV 01/14/18 07:45 01/16/18 23:00 (Lipitor) 10 mg HS PO 01/14/18 21:00 01/16/18 21:38 (Lanoxin) 0.125 mg DAILY PO 01/15/18 09:00 01/17/18 08:39 (Ferrous Sulfate) 325 mg DAILY PO 01/14/18 13:00 01/17/18 08:40 (Flovent Hfa 110 Mcg Inh) 2 puff BID INH 01/14/18 21:00 01/17/18 08:40 (Sturdivant 5-325 Mg) 1 tab Q4H PRN PO 01/14/18 13:00 01/16/18 21:38 (Imdur) 30 mg DAILY PO 01/15/18 09:00 Future hold 01/16/18 11:01 (Isoptin Sr) 120 mg HS PO 01/14/18 21:00 Future Hold 01/14/18 20:20 (Spiriva Inh) 18 mcg DAILY INH 01/14/18 21:00 01/17/18 08:40 (Albuterol Neb) 1.25 mg Q2HR NEB PRN NEB 4/6/18 13:00 01/16/18 13:27 (Proair Hfa Inh) 2 puff QID INH 01/14/18 21:00 01/17/18 08:40 (Nitrostat Sl) 0.4 mg Q5M PRN SL 01/15/18 16:00 Future Hold 01/15/18 16:02 (Ativan Inj) 0.5 mg Q8H PRN IV 01/15/18 17:00 (Morphine Inj) 1 mg Q4H PRN IV 01/15/18 17:00 01/15/18 17:02 Family History Patient has 3 adult children . Substance Use Tobacco: None reported Alcohol: None report Prescription med abuse: None reported Illicits: None reported . Psychosocial History Patient is originally from [place]. Patient's was in the and she lived in different states and out of [facility] inclusive of Mandy, and Abdoulaye. 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 Patient's in 2004. She had 3 adult children, 2 sons who are and one daughter living. . Spiritual/Cultural Factors Patient is a Mu-Ism-patient's daughter does not think that she will benefit from human resources supervisor visits. . Living Will: Copy in medical record Health Care Surrogate: Copy in medical record Durable Power of Endo Tech: Copy in medical record Date completed: August,. . Health Care Surrogate(s): Healthcare surrogate -Divya Keyes (Kiel) [phone] (work)/ (cell) Alternate healthcare surrogate- Duane Jarquincarley Dyson [phone] . Documented care wishes: Standard verbation- See copy in EMR . Family/friends goals: Aggressive short of no code. Patient's daughter wants to proceed with colonoscopy . Ethical and Legal Issues None identified at this time . Physical Exam Vital Signs Date Time Temp Pulse Resp B/P (MAP) Pulse Ox O2 Delivery O2 Flow Rate FiO2 01/17/18 08:00 97.7 73 24 162/72 (102) 97 01/17/18 04:19 98.4 72 18 139/65 (89) 98 01/16/18 23:47 98.2 95 17 150/68 (95) 96 01/16/18 20:54 97.5 97 18 138/65 (89) 95 01/16/18 19:49 Nasal Cannula 2.00 01/16/18 16:00 98.2 101 24 132/59 (83) 97 01/16/18 13:27 97 Nasal Cannula 2.00 01/16/18 12:00 98.4 85 24 166/75 (105) 95 Exam CONSTITUTIONAL/GENERAL: This is an elderly, cachectic patient, in no apparent distress. TUBES/LINES/DRAINS: Kulkarni catheter, PIV SKIN: No jaundice, rashes, or lesions. Ecchymoses on upper extremities. No wounds seen anteriorly. Skin temperature appropriate. Not diaphoretic. HEAD: Atraumatic. Normocephalic. EYES: Pupils equal and round and reactive. Extraocular motions intact. No scleral icterus. No injection or drainage. Fundi not examined. ENT: Hearing grossly normal. Nose without bleeding or purulent drainage. Moist oral mucosa. NECK: Trachea midline. Supple, nontender. CARDIOVASCULAR: Irregular heart rate and rhythm without murmurs, gallops, or rubs. No JVD. Peripheral pulses symmetric. RESPIRATORY/CHEST: Symmetric, unlabored respirations. Rhonchi to auscultation. Breath sounds equal bilaterally. No wheezes. GASTROINTESTINAL: Abdomen soft, non-tender, nondistended. No guarding. Bowel sounds present. GENITOURINARY: Without palpable bladder distension. Kulkarni catheter in place. MUSCULOSKELETAL: Extremities without clubbing, cyanosis, or edema. No joint tenderness or effusion noted. No calf tenderness. No mottling or clubbing. NEUROLOGICAL: Awake and alert, oriented to self with confusion. Motor and sensory grossly within normal limits. Follows commands. Moves all extremities. PSYCHIATRIC: No obvious anxiety/depression. no apparent hallucinations or other psychotic thought process. Diagnostic Tests Laboratory Laboratory Tests Test 01/14/18 18:32 01/15/18 16:40 01/15/18 16:47 01/16/18 14:58 Hemoglobin 9.3 GM/DL (11.6-15.3) 9.0 GM/DL (11.6-15.3) Hematocrit 27.6 % (35.0-46.0) 27.2 % (35.0-46.0) Prothrombin Time 10.6 SEC (9.8-11.6) Prothromb Time International Ratio 1.0 RATIO Blood Gas Puncture Site LT RADIAL Blood Gas Patient Temperature 98.6 Blood Gas HCO3 25 mmol/L (22-26) Blood Gas Base Excess 1.0 mmol/L (-2-2) Blood Gas Oxygen Saturation 90 % (90-100) Arterial Blood pH 7.43 (7.380-7.420) Arterial Blood Partial Pressure CO2 39 mmHg (38-42) Arterial Blood Partial Pressure O2 65 mmHg (61-120) Arterial Blood Oxygen Content 11.2 Vol % (12.0-20.0) Arterial Blood Carboxyhemoglobin 2.6 % (0-4) Arterial Blood Methemoglobin 1.1 % (0-2) Blood Gas Hemoglobin 8.8 G/DL (12.0-16.0) Oxygen Delivery Device NASAL CANNULA Blood Gas Liter Flow 4 L/M White Blood Count 11.4 TH/MM3 (4.0-11.0) Red Blood Count 2.91 MIL/MM3 (4.00-5.30) Mean Corpuscular Volume 93.4 FL (80.0-100.0) Mean Corpuscular Hemoglobin 30.9 PG (27.0-34.0) Mean Corpuscular Hemoglobin Concent 33.1 % (32.0-36.0) Red Cell Distribution Width 17.2 % (11.6-17.2) Platelet Count 207 TH/MM3 (150-450) Mean Platelet Volume 8.9 FL (7.0-11.0) Neutrophils (%) (Auto) 58.3 % (16.0-70.0) Lymphocytes (%) (Auto) 33.9 % (9.0-44.0) Monocytes (%) (Auto) 6.6 % (0.0-8.0) Eosinophils (%) (Auto) 0.6 % (0.0-4.0) Basophils (%) (Auto) 0.6 % (0.0-2.0) Neutrophils # (Auto) 6.7 TH/MM3 (1.8-7.7) Lymphocytes # (Auto) 3.9 TH/MM3 (1.0-4.8) Monocytes # (Auto) 0.8 TH/MM3 (0-0.9) Eosinophils # (Auto) 0.1 TH/MM3 (0-0.4) Basophils # (Auto) 0.1 TH/MM3 (0-0.2) CBC Comment DIFF FINAL Differential Comment Blood Urea Nitrogen 16 MG/DL (7-18) Creatinine 0.81 MG/DL (0.50-1.00) Random Glucose 130 MG/DL (74-106) Total Protein 5.9 GM/DL (6.4-8.2) Albumin 2.3 GM/DL (3.4-5.0) Calcium Level 7.7 MG/DL (8.5-10.1) Alkaline Phosphatase 60 U/L (45-117) Aspartate Amino Transf (AST/SGOT) 19 U/L (15-37) Alanine Aminotransferase (ALT/SGPT) 20 U/L (10-53) Total Bilirubin 0.5 MG/DL (0.2-1.0) Sodium Level 143 MEQ/L (136-145) Potassium Level 3.8 MEQ/L (3.5-5.1) Chloride Level 110 MEQ/L (98-107) Carbon Dioxide Level 24.9 MEQ/L (21.0-32.0) Anion Gap 8 MEQ/L (5-15) Estimat Glomerular Filtration Rate 67 ML/MIN (>89) Total Creatine Kinase 29 U/L (26-192) Troponin I LESS THAN 0.02 NG/ML Urine Color LIGHT-YELLOW (YELLW/STRAW) Urine Turbidity CLEAR (CLEAR) Urine pH 6.0 (5.0-8.5) Urine Specific [place] 1.012 (1.002-1.035) Urine Protein NEG mg/dL (NEG-TRACE) Urine Glucose (UA) NEG mg/dL (NEG) Urine Ketones NEG mg/dL (NEG) Urine Occult Blood NEG (NEG) Urine Nitrite NEG (NEG) Urine Bilirubin NEG (NEG) Urine Urobilinogen LESS THAN 2.0 MG/DL (LESS Urine Leukocyte Esterase NEG (NEG) Urine RBC 1 /hpf (0-3) Urine WBC 1 /hpf (0-5) Urine Squamous Epithelial Cells <1 /hpf (0-5) Urine Bacteria RARE /hpf (NONE) Urine Mucus FEW /lpf (OCC) Microscopic Urinalysis Comment CULT NOT INDICATED Result Diagram: 01/15/18 1647 01/15/18 1647 Imaging Last Impressions Lower Extremity CT 01/15/18 0000 Signed Impressions: Service Date/Time: Monday, January 15, 2018 19:38 - CONCLUSION: 1. No bony fracture is seen. 2. Large superficial hematoma in the lateral left upper thigh region. Hussein Byrne MD Chest X-Ray 01/15/18 0000 Signed Impressions: Service Date/Time: Monday, January 15, 2018 16:48 - CONCLUSION: 1. No acute cardiopulmonary process. 2. Lower left rib fracture. Hussein Byrne MD Hip X-Ray 01/13/18 0000 Signed Impressions: Service Date/Time: January 21:14 - CONCLUSION: 1. No acute fracture. 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 Aba Villegas MD Patient/Family Conference Family Conference Location: Bedside Issues Discussed: * Palliative care role, purpose, approach * Additional medical, psychosocial, and spiritual history * Patients general health, functional status, and cognitive changes in the months leading up to the current hospitalization * Patient/family understanding of the current medical problems * Patient/family understanding of prognosis * Patients goals of care as best understood from advance directives and/or conversations and/or values * Current medical treatment options and benefits/burdens of those options * Likely scenarios comparing ongoing aggressive care with a transition to comfort measures only * Questions answered to the best of my ability * Introduced hospice philosophy and benefits * Palliative care contact information provided Assessment and Plan Disease Oriented Problem List: (1) GI bleed (2) Severe anemia (3) History of colon cancer Symptom Scale: (1) Pain 0-10 Scale: Unable to quantify (2) Debility 0-10 Scale: Unable to quantify Comment: Progressive . Pertinent Non-Medical Issues Psychosocial:Patient is originally from [place]. Patient's was in the and she lived in different states and out of [facility] inclusive of [place], and [place]. 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 Patient's in 2004. She had 3 adult children, 2 sons who are and one daughter living. Spiritual: Patient is a Mu-Ism. Patient`s daughter does not wish to have visit from human resources supervisor Legal: Patient has a living will, and healthcare surrogate Ethical issues impacting care: None identified at this time . Important Contacts Healthcare surrogate -Divya Keyes (Kiel) [phone] (work)/[phone] (cell) Alternate healthcare surrogate- Duane Curran Kiel [phone] . Prognosis Mrs. Dyson is a 82-year-old with a past medical history significant of anemia, colon cancer, dementia, CAD, atrial fibrillation, CVA, hyperlipidemia, COPD and GERD. Patient was brought into the ER on 01/13/18 for further evaluation of a hemoglobin of 7.6, and left hip pain. Diagnostic colonoscopy is planned. Given ongoing comorbidities, patient is at risk for further complications, deterioration and decline. . Code Status: No Code Plan PLAN: Legal decision maker: Patient has history of dementia and has been deemed not able to make her own medical decisions. Patient`s daughter Divya Gutiérrez Kielxavier Meadows is the healthcare surrogate and the alternate health care surrogate is Duane Dyson. Goals: Aggressive short of no code CODE STATUS: No code DNR/DNI Obtained psychosocial history, past medical history. Daughter narrated patient` s trajectory of decline since patient had a hip fracture in November 2017. Patient`s daughter confirmed that she wants patient as a DNR/DNI. Expressed that she would not want to put her mother though a major surgery but would like her to undergo colonoscopy to find the source of bleed. She mentioned that if it is something that can be corrected during colonoscopy , she is amenable to that but if patient would need correction of problem with major surgical intervention, she would reassess/rethink his goals of care. Introduced hospice philosophy and benefits. Patient`s daughter stated that at this point she is not ready for hospice but was appreciative of information provided. Patient`s daughter understands that patient may continue to decline medically and hospice will be the best option for her mother. Patient's daughter expressed that prior to patient getting more confused due to dementia, she told her daughter that quality of life is very important to her and she "would not want to just exist". Will assist daughter with completion of community DNR. SYMPTOMS: * Pain: Patient has been complaining of abdominal pain. Patient not showing signs of pain and discomfort. Morphine [id number] prn available. No recommendations at this time * Debility: Progressive. Patient has been in the hospital and rehabilitation since November this year and is now requiring assistance with most of the ADLs. Patient has been in rehabilitation prior to this admission. Physical therapy consulted and recommending PT and rehab. No recommendations. Palliative care will continue to follow the patient during hospital course as condition evolves, to assist patient/decision-maker with understanding of their medical conditions, weighing benefits/burdens of treatment options, for clarification of goals of treatment. Additionally will assist with any symptoms of palliative concern Thank you for the opportunity to participate in the care of Ms. Dyson. Attestation To help prompt me to consider important information that might be impacting today's encounter and assessment, information from prior notes written by myself or my colleagues may have been "brought forward" into today's note. My signature on this note, however, is an attestation that I personally performed the exam, history, and/or decision-making noted today, and, unless otherwise indicated, the interactions with patient, family, and staff as well as the review of records all occurred today. I also attest that the listed assessment and stated plan reflect my best clinical judgment today based on the combination of historical information, prior notes, and today's exam/ interactions. When time spent is documented, it refers only to time spent today by the signer, or if indicated, combined time spent today by collaborating physician/nurse practitioner. Nelly Flores Jan 17, 2018 12:44
[2018-01-17 16:00] VITALS: BP 152/66; PULSE 91; RESP 24; TEMP 97.7; O2SAT 94
[2018-01-17] MEDS: ACETAMINOPHEN/HYDROcodone 325 MG/5 MG TAB PO PRN (17:19)
[2018-01-17] MEDS ORDERED: PEG (High)/E-LYTE SOLN 4000 ML BTL PO ONE (19:00)
[2018-01-17] MEDS: ATORVASTATIN 10 MG TAB PO SCH (20:24)
[2018-01-17 20:30] VITALS: BP 147/61; PULSE 103; RESP 19; TEMP 98.3; O2SAT 98
[2018-01-18] MEDS ORDERED: POVIDONE IODINE 5% (ANTISEPSIS KIT) 4 APPLICATIONS EACH NARE PRN (00:30)
[2018-01-18] MEDS ORDERED: SODIUM CHLORID 0.9% 500 ML IV PRN (00:30)
[2018-01-18] MEDS ORDERED: CHLORHEXIDINE GLUCONATE 2 % 1 PACK (2 CLOTHS) TOPICAL PRN (00:30)
[2018-01-18] MEDS ORDERED: LACTATED RINGER'S 1000 ML IV PRN (00:30)
[2018-01-18 00:35] VITALS: BP 120/80; PULSE 88; RESP 18; TEMP 97.7; O2SAT 98
[2018-01-18 07:15] LABS: AUTOMATED NEUTROPHIL # 3.6 TH/MM3 (1.8-7.7); BASOPHIL % 0.5 % (0.0-2.0); EOSINOPHIL # 0.1 TH/MM3 (0-0.4); EOSINOPHIL % 1.1 % (0.0-4.0); HEMATOCRIT 26.5 % (35.0-46.0); LYMPHOCYTE # 1.5 TH/MM3 (1.0-4.8); MEAN CELL VOLUME 93.1 FL (80.0-100.0); MEAN CORPUSCULAR HEMOGLOBIN 31.4 PG (27.0-34.0); MEAN CORPUSCULAR HGB CONC 33.7 % (32.0-36.0); MONOCYTE # 0.5 TH/MM3 (0-0.9); NEUT % 62.4 % (16.0-70.0); PLATELET COUNT 184 TH/MM3 (150-450); RED BLOOD COUNT 2.85 MIL/MM3 (4.00-5.30); RED CELL DISTRIBUTION WIDTH 17.3 % (11.6-17.2); WHITE BLOOD COUNT 5.7 TH/MM3 (4.0-11.0)
[2018-01-18 08:00] VITALS: BP 166/69; PULSE 69; RESP 16; TEMP 97.9; O2SAT 100
[2018-01-18] MEDS: ALBUTEROL SULFATE 90 MCG/ACT HFA 8 GM INHALER INH SCH ×4 (09:00→21:00)
[2018-01-18] MEDS: TIOTROPIUM BROMIDE 18 MCG INH INH SCH (09:00)
[2018-01-18] MEDS: FLUTICASONE PROPIONATE 110 MCG/ACT 12 GM INHALER INH SCH ×2 (09:00→20:25)
[2018-01-18] MEDS: FERROUS SULFATE 325 MG (65 MG ELEMENTAL IRON) TAB PO SCH (09:00)
[2018-01-18] MEDS: DIGOXIN 0.125 MG TAB PO SCH (09:00)
[2018-01-18] MEDS: ISOSORBIDE MONONITRATE 30 MG CR TAB (IMDUR) PO SCH (09:00)
--- NOTE | 2018-01-18 09:48 | PD.PROCEDR ---
GI Procedure PROCEDURE PERFORMED Enteroscopy with ablation of AVMs Incomplete colonoscopy INDICATION FOR PROCEDURE Anemia PROCEDURE: The procedure, risks and benefits were discussed with Ms. Dyson and informed consent was obtained. Anesthesia sedated her with Diprivan. She was placed in the left lateral decubitus position. Enteroscopy: The Pentax videoscope was introduced through the oropharynx and advanced to the second portion of the duodenum under direct visualization the endoscope was advanced to the mid jejunum then withdrawal back to the stomach. Retroflexion was performed in the stomach. Colonoscopy: The Pentax videoscope was introduced through the rectum and advanced to sigmoid. Retroflexion was performed in the rectum. 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
--- NOTE | 2018-01-18 09:51 | HHI.GIFU ---
Subjective Remarks Patient laying in bed, comfortable, not very communicative, only took half of her prep according to the nursing staff Objective Vitals I&O Vital Signs Date Time Temp Pulse Resp B/P (MAP) Pulse Ox O2 Delivery O2 Flow Rate FiO2 01/18/18 08:00 97.9 69 16 166/69 (101) 100 01/18/18 03:47 Nasal Cannula 2.00 01/18/18 00:35 97.7 88 18 120/80 (93) 98 01/17/18 20:30 98.3 103 19 147/61 (89) 98 01/17/18 18:23 16 01/17/18 16:00 97.7 91 24 152/66 (94) 94 01/17/18 12:33 2.00 01/17/18 12:00 97.2 72 24 167/72 (103) 95 I/O 01/17/18 01/17/18 01/17/18 01/18/18 01/18/18 01/18/18 07:00 15:00 23:00 07:00 15:00 23:00 Intake Total 0 ml 2360 ml Output Total 400 ml 400 ml 425 ml Balance -400 ml -400 ml 1935 ml Intake Oral 0 ml 2360 ml Output Urine Total 400 ml 400 ml 425 ml # Bowel Movements 1 2 1 2 Laboratory Laboratory Tests Test 01/18/18 05:56 White Blood Count 5.7 Red Blood Count 2.85 Hemoglobin 9.0 Hematocrit 26.5 Mean Corpuscular Volume 93.1 Mean Corpuscular Hemoglobin 31.4 Mean Corpuscular Hemoglobin Concent 33.7 Red Cell Distribution Width 17.3 Platelet Count 184 Mean Platelet Volume 9.0 Neutrophils (%) (Auto) 62.4 Lymphocytes (%) (Auto) 27.0 Monocytes (%) (Auto) 9.0 Eosinophils (%) (Auto) 1.1 Basophils (%) (Auto) 0.5 Neutrophils # (Auto) 3.6 Lymphocytes # (Auto) 1.5 Monocytes # (Auto) 0.5 Eosinophils # (Auto) 0.1 Basophils # (Auto) 0.0 CBC Comment DIFF FINAL Differential Comment Physical Exam HEENT: normocephalic; atraumatic; no jaundice. CHEST: CTA CARDIAC: RRR ABDOMEN: Soft, no abd distention, nontender; no hepatosplenomegaly; bowel sounds are present in all four quadrants. EXTREMITIES: No clubbing, cyanosis, or edema. thin SKIN: Normal; no rash; no jaundice. 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
[2018-01-18 12:00] VITALS: BP 115/70; PULSE 86; RESP 18; TEMP 97.3; O2SAT 100
[2018-01-18] MEDS ORDERED: GLYCOPYRROLATE 1 MG/5 ML SYRINGE IV PUSH ONE (12:00)
[2018-01-18] MEDS ORDERED: PHENYLEPH/NS 1000 MCG/10 ML SYR IV ONE (12:00)
[2018-01-18] MEDS ORDERED: ePHEDrine/NS 25 MG/5 ML SYRINGE IV ONE (12:00)
[2018-01-18] MEDS ORDERED: LIDOCAINE HCL 1% PF 5 ML SYRINGE OTHER ONE (12:00)
[2018-01-18] MEDS ORDERED: PROPOFOL 200 MG/20 ML AMP IV ONE (12:00)
--- NOTE | 2018-01-18 12:42 | HHI.HCPN ---
Reason for visit a. To assist with evaluation and management of symptoms including: Pain, debility b. To assist medical decision maker(s) with: better understanding of current medical conditions; weighing benefits/burdens of medical treatment options; making medical treatment decisions. Subjective/Interval History Follow up visit medically necessary for further clarification of goals. Patient seen and examined in his room in the presence of her daughter. Patient dozing on and off , not verbalizing at this time, no signs of pain or discomfort noted. Patient is back from GI lab. Colonoscopy was not performed due to incomplete colonic prep. Patient is scheduled for repeat colonoscopy in the morning 01/19/18 with longer prep. 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 AVM`s were ablated with heat. Laboratory workup today revealing WBC 5.7, hemoglobin 9.0, hematocrit 26.5, platelet count 184. Community DNR signed by patient`s daughter Divya Dyson who is also patient `s POA. Patient`s daughter stated that patient will have to go for colonoscopy tomorrow due to poor colonic prep and that patient will need an NGT for the prep. Patient`s daughter not sure is she would want her mother to have an NGT inserted, knowing that she won`t understand why she has to have it and she also does not want her mother to be restrained in order to keep the NGT in. Patient` s daughter initially amenable to having patient drink Magnesium Citrate for colonic prep. After telephone conversation with GI physician, patient`s daughter decided that she no longer wants patient to have a colonoscopy done. She mentioned that she will just bring the patient to the hospital for pRBC transfusion if needed. Case discussed with bedside RN and GI PJ Harrison. . Family/friend interactions Conversation at bedside with patient`s daughter. . Advance Directives Living Will: Copy in medical record Health Care Surrogate: Copy in medical record Durable Power of Producer Assistant: Copy in medical record Advance Directive Specifics Date completed: August,. . Health Care Surrogate(s): Healthcare surrogate -Divya Keyes (Kiel) Dziojx-[phone] (work)/ (cell) Alternate healthcare surrogate- Duane Dyson [phone] . Documented care wishes: Standard verbation- See copy in EMR . Objective Vital Signs Date Time Temp Pulse Resp B/P (MAP) Pulse Ox O2 Delivery O2 Flow Rate FiO2 01/18/18 10:00 97.6 94 18 116/62 (80) 93 01/18/18 08:00 97.9 69 16 166/69 (101) 100 01/18/18 03:47 Nasal Cannula 2.00 01/18/18 00:35 97.7 88 18 120/80 (93) 98 01/17/18 20:30 98.3 103 19 147/61 (89) 98 01/17/18 18:23 16 01/17/18 16:00 97.7 91 24 152/66 (94) 94 01/17/18 12:33 2.00 Intake & Output 01/18/18 01/18/18 07:00 19:00 Intake Total 2360 ml 200 ml Output Total 425 ml Balance 1935 ml 200 ml Intake Oral 2360 ml Other 200 ml Output Urine Total 425 ml # Bowel Movements 3 Physical Exam CONSTITUTIONAL/GENERAL: This is an elderly, cachectic patient, in no apparent distress. TUBES/LINES/DRAINS: Kulkarni catheter, PIV SKIN: No jaundice, rashes, or lesions. Ecchymoses on upper extremities. No wounds seen anteriorly. Skin temperature appropriate. Not diaphoretic. HEAD: Atraumatic. Normocephalic. EYES: Pupils equal and round and reactive. Extraocular motions intact. No scleral icterus. No injection or drainage. Fundi not examined. ENT: Hearing grossly normal. Nose without bleeding or purulent drainage. Moist oral mucosa. NECK: Trachea midline. Supple, nontender. CARDIOVASCULAR: Irregular heart rate and rhythm without murmurs, gallops, or rubs. No JVD. Peripheral pulses symmetric. RESPIRATORY/CHEST: Symmetric, unlabored respirations. Rhonchi to auscultation. Breath sounds equal bilaterally. No wheezes. GASTROINTESTINAL: Abdomen soft, non-tender, nondistended. No guarding. Bowel sounds present. GENITOURINARY: Without palpable bladder distension. Kulkarni catheter in place. MUSCULOSKELETAL: Extremities without clubbing, cyanosis, or edema. No joint tenderness or effusion noted. No calf tenderness. No mottling or clubbing. NEUROLOGICAL:Sleeping, arousable- not verbalizing today. Motor and sensory grossly within normal limits. Follows commands. Moves all extremities. PSYCHIATRIC: No obvious anxiety/depression. no apparent hallucinations or other psychotic thought process. Diagnostic Tests Laboratory Laboratory Tests Test 01/15/18 16:40 01/15/18 16:47 01/16/18 14:58 01/18/18 05:56 Blood Gas Puncture Site LT RADIAL Blood Gas Patient Temperature 98.6 Blood Gas HCO3 25 mmol/L (22-26) Blood Gas Base Excess 1.0 mmol/L (-2-2) Blood Gas Oxygen Saturation 90 % (90-100) Arterial Blood pH 7.43 (7.380-7.420) Arterial Blood Partial Pressure CO2 39 mmHg (38-42) Arterial Blood Partial Pressure O2 65 mmHg (61-120) Arterial Blood Oxygen Content 11.2 Vol % (12.0-20.0) Arterial Blood Carboxyhemoglobin 2.6 % (0-4) Arterial Blood Methemoglobin 1.1 % (0-2) Blood Gas Hemoglobin 8.8 G/DL (12.0-16.0) Oxygen Delivery Device NASAL CANNULA Blood Gas Liter Flow 4 L/M White Blood Count 11.4 TH/MM3 (4.0-11.0) 5.7 TH/MM3 (4.0-11.0) Red Blood Count 2.91 MIL/MM3 (4.00-5.30) 2.85 MIL/MM3 (4.00-5.30) Hemoglobin 9.0 GM/DL (11.6-15.3) 9.0 GM/DL (11.6-15.3) Hematocrit 27.2 % (35.0-46.0) 26.5 % (35.0-46.0) Mean Corpuscular Volume 93.4 FL (80.0-100.0) 93.1 FL (80.0-100.0) Mean Corpuscular Hemoglobin 30.9 PG (27.0-34.0) 31.4 PG (27.0-34.0) Mean Corpuscular Hemoglobin Concent 33.1 % (32.0-36.0) 33.7 % (32.0-36.0) Red Cell Distribution Width 17.2 % (11.6-17.2) 17.3 % (11.6-17.2) Platelet Count 207 TH/MM3 (150-450) 184 TH/MM3 (150-450) Mean Platelet Volume 8.9 FL (7.0-11.0) 9.0 FL (7.0-11.0) Neutrophils (%) (Auto) 58.3 % (16.0-70.0) 62.4 % (16.0-70.0) Lymphocytes (%) (Auto) 33.9 % (9.0-44.0) 27.0 % (9.0-44.0) Monocytes (%) (Auto) 6.6 % (0.0-8.0) 9.0 % (0.0-8.0) Eosinophils (%) (Auto) 0.6 % (0.0-4.0) 1.1 % (0.0-4.0) Basophils (%) (Auto) 0.6 % (0.0-2.0) 0.5 % (0.0-2.0) Neutrophils # (Auto) 6.7 TH/MM3 (1.8-7.7) 3.6 TH/MM3 (1.8-7.7) Lymphocytes # (Auto) 3.9 TH/MM3 (1.0-4.8) 1.5 TH/MM3 (1.0-4.8) Monocytes # (Auto) 0.8 TH/MM3 (0-0.9) 0.5 TH/MM3 (0-0.9) Eosinophils # (Auto) 0.1 TH/MM3 (0-0.4) 0.1 TH/MM3 (0-0.4) Basophils # (Auto) 0.1 TH/MM3 (0-0.2) 0.0 TH/MM3 (0-0.2) CBC Comment DIFF FINAL DIFF FINAL Differential Comment Blood Urea Nitrogen 16 MG/DL (7-18) Creatinine 0.81 MG/DL (0.50-1.00) Random Glucose 130 MG/DL (74-106) Total Protein 5.9 GM/DL (6.4-8.2) Albumin 2.3 GM/DL (3.4-5.0) Calcium Level 7.7 MG/DL (8.5-10.1) Alkaline Phosphatase 60 U/L (45-117) Aspartate Amino Transf (AST/SGOT) 19 U/L (15-37) Alanine Aminotransferase (ALT/SGPT) 20 U/L (10-53) Total Bilirubin 0.5 MG/DL (0.2-1.0) Sodium Level 143 MEQ/L (136-145) Potassium Level 3.8 MEQ/L (3.5-5.1) Chloride Level 110 MEQ/L (98-107) Carbon Dioxide Level 24.9 MEQ/L (21.0-32.0) Anion Gap 8 MEQ/L (5-15) Estimat Glomerular Filtration Rate 67 ML/MIN (>89) Total Creatine Kinase 29 U/L (26-192) Troponin I LESS THAN 0.02 NG/ML Urine Color LIGHT-YELLOW (YELLW/STRAW) Urine Turbidity CLEAR (CLEAR) Urine pH 6.0 (5.0-8.5) Urine Specific Bryant 1.012 (1.002-1.035) Urine Protein NEG mg/dL (NEG-TRACE) Urine Glucose (UA) NEG mg/dL (NEG) Urine Ketones NEG mg/dL (NEG) Urine Occult Blood NEG (NEG) Urine Nitrite NEG (NEG) Urine Bilirubin NEG (NEG) Urine Urobilinogen LESS THAN 2.0 MG/DL (LESS Urine Leukocyte Esterase NEG (NEG) Urine RBC 1 /hpf (0-3) Urine WBC 1 /hpf (0-5) Urine Squamous Epithelial Cells <1 /hpf (0-5) Urine Bacteria RARE /hpf (NONE) Urine Mucus FEW /lpf (OCC) Microscopic Urinalysis Comment CULT NOT INDICATED Result Diagram: 01/18/18 0556 01/15/18 1647 Procedures 01/18/2018- Enteroscopy . Assessment and Plan Disease Oriented Problem List: (1) GI bleed (2) Severe anemia (3) History of colon cancer Symptom Scale: (1) Pain 0-10 Scale: Unable to quantify (2) Debility 0-10 Scale: Unable to quantify Comment: Progressive . Pertinent Non-Medical Issues Psychosocial:Patient is originally from [place]. Patient's was in the and she lived in different states and out of [facility] inclusive of [place], and [place]. 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 Patient's in 2004. She had 3 adult children, 2 sons who are and one daughter living. Spiritual: Patient is a Nondenominational. Patient`s daughter does not wish to have visit from fountain jerk Legal: Patient has a living will, and healthcare surrogate Ethical issues impacting care: None identified at this time . Important Contacts Healthcare surrogate -Divya Meadows (Fricke)-[phone] (work)/[phone] (cell) Alternate healthcare surrogate- Duane Dyson [phone] . Prognosis Mrs. Dyson is a 82-year-old with a past medical history significant of anemia, colon cancer, dementia, CAD, atrial fibrillation, CVA, hyperlipidemia, COPD and GERD. Patient was brought into the ER on 01/13/18 for further evaluation of a hemoglobin of 7.6, and left hip pain. Diagnostic colonoscopy is planned. Given ongoing comorbidities, patient is at risk for further complications, deterioration and decline. . Code Status: No Code Plan PLAN: Legal decision maker: Patient has history of dementia and has been deemed not able to make her own medical decisions. Patient`s daughter Divya Meadows ( Fricke) is the healthcare surrogate and the alternate health care surrogate is Duane Dyson. Goals: Aggressive short of no code CODE STATUS: No code DNR/DNI- Community DNR signed, placed on chart. Community DNR signed by patient`s daughter Divya Dyson who is also patient `s POA. Patient`s daughter stated that patient will have to go for colonoscopy tomorrow due to poor colonic prep and that patient will need an NGT for the prep. Patient`s daughter not sure is she would want her mother to have an NGT inserted, knowing that she won`t understand why she has to have it and she also does not want her mother to be restrained in order to keep the NGT in. Patient` s daughter amenable to having patient drink Magnesium Citrate for colonic prep. SYMPTOMS: * Pain: Patient has been complaining of abdominal pain. Patient not showing signs of pain and discomfort. Morphine [id number] prn available. No recommendations at this time * Debility: Progressive. Patient has been in the hospital and rehabilitation since November this year and is now requiring assistance with most of the ADLs. Patient has been in rehabilitation prior to this admission. Physical therapy consulted and recommending PT and rehab. No recommendations. Palliative care will continue to follow the patient during hospital course as condition evolves, to assist patient/decision-maker with understanding of their medical conditions, weighing benefits/burdens of treatment options, for clarification of goals of treatment. Additionally will assist with any symptoms of palliative concern Attestation To help prompt me to consider important information that might be impacting today's encounter and assessment, information from prior notes written by myself or my colleagues may have been "brought forward" into today's note. My signature on this note, however, is an attestation that I personally performed the exam, history, and/or decision-making noted today, and, unless otherwise indicated, the interactions with patient, family, and staff as well as the review of records all occurred today. I also attest that the listed assessment and stated plan reflect my best clinical judgment today based on the combination of historical information, prior notes, and today's exam/ interactions. When time spent is documented, it refers only to time spent today by the signer, or if indicated, combined time spent today by collaborating physician/nurse practitioner. Nelly Flores Jan 18, 2018 12:42
--- NOTE | 2018-01-18 13:11 | HHI.GIFU ---
Subjective Remarks Pt OOB to chair in NAD. Daughter at bedside. Opting not to proceed with colonoscopy, even if mg citrate offered as bowel prep. (Christy Verdugo) Objective Vitals I&O Vital Signs Date Time Temp Pulse Resp B/P (MAP) Pulse Ox O2 Delivery O2 Flow Rate FiO2 01/18/18 10:00 97.6 94 18 116/62 (80) 93 01/18/18 08:00 97.9 69 16 166/69 (101) 100 01/18/18 03:47 Nasal Cannula 2.00 01/18/18 00:35 97.7 88 18 120/80 (93) 98 01/17/18 20:30 98.3 103 19 147/61 (89) 98 01/17/18 18:23 16 01/17/18 16:00 97.7 91 24 152/66 (94) 94 I/O 01/17/18 01/17/18 01/17/18 01/18/18 01/18/18 01/18/18 07:00 15:00 23:00 07:00 15:00 23:00 Intake Total 0 ml 2360 ml 200 ml Output Total 400 ml 400 ml 425 ml Balance -400 ml -400 ml 1935 ml 200 ml Intake Oral 0 ml 2360 ml Other 200 ml Output Urine Total 400 ml 400 ml 425 ml # Bowel Movements 1 2 1 2 Laboratory Laboratory Tests Test 01/18/18 05:56 White Blood Count 5.7 Red Blood Count 2.85 Hemoglobin 9.0 Hematocrit 26.5 Mean Corpuscular Volume 93.1 Mean Corpuscular Hemoglobin 31.4 Mean Corpuscular Hemoglobin Concent 33.7 Red Cell Distribution Width 17.3 Platelet Count 184 Mean Platelet Volume 9.0 Neutrophils (%) (Auto) 62.4 Lymphocytes (%) (Auto) 27.0 Monocytes (%) (Auto) 9.0 Eosinophils (%) (Auto) 1.1 Basophils (%) (Auto) 0.5 Neutrophils # (Auto) 3.6 Lymphocytes # (Auto) 1.5 Monocytes # (Auto) 0.5 Eosinophils # (Auto) 0.1 Basophils # (Auto) 0.0 CBC Comment DIFF FINAL Differential Comment Imaging Last Impressions Lower Extremity CT 01/15/18 0000 Signed Impressions: Service Date/Time: Monday, January 15, 2018 19:38 - CONCLUSION: 1. No bony fracture is seen. 2. Large superficial hematoma in the lateral left upper thigh region. Hussein Byrne MD Chest X-Ray 01/15/18 0000 Signed Impressions: Service Date/Time: Monday, January 15, 2018 16:48 - CONCLUSION: 1. No acute cardiopulmonary process. 2. Lower left rib fracture. Hussein Byrne MD Hip X-Ray 01/13/18 0000 Signed Impressions: Service Date/Time: January 21:14 - CONCLUSION: 1. No acute fracture. 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 Aba Villegas MD Physical Exam HEENT: normocephalic; atraumatic; no jaundice. CHEST: CTA CARDIAC: RRR ABDOMEN: Soft, no abd distention, nontender; no hepatosplenomegaly; bowel sounds are present in all four quadrants. EXTREMITIES: No clubbing, cyanosis, or edema. thin SKIN: Normal; no rash; no jaundice. SUPERVISOR COMPOUNDING AND FINISHING: alert relatively nonverbal (Christy Verdugo) Assessment and Plan Plan Assessment: - Anemia with positive Hemoccult stool in ER- H/H 7.2/.8 on admission, pt with long history of REILLY, has in the past required multiple blood transfusions. Recent admission for anemia, hgb was 4.9, our service was following but pts daughter declined further work up with GI procedures at that time. Hematology, Dr. Pace was also following. No obvious blood in stool, no reports of emesis. Pt had advanced dementia so unable to obtain review of systems. Previous work up for anemia included EGD and colonoscopy in 2006 per daughter both exams were normal - History of colon cancer- S/P removal of part of the small intestine and colon in 1982 - Unintentional weight loss- Unsure of the exact amount- weighed 90 lbs in October- Of note, dementia seems to be progressing and pt is unable to feed herself - A-fib- no blood thinners listed in chart- Pts daughter is unsure which medication she is currently taking 01/17/18 GI w/u on hold. palliative care consult pending. pt drowsy. halicat over weekend. c/o abd pain but unable to further qualityf Patient was seen and examined, patient only took half of her prep, she had an enteroscopy and incomplete colonoscopy because of poor prep IMPRESSION: 3 AVMs, one in the duodenum and 2 in the jejunum ablated with heat Normal EGD otherwise Poor prep up to the sigmoid unable to pass the scope beyond this area 01/18/18 s/p Enteroscopy, esohpageal dilatation, and incomplete colonoscopy. Poor prep. Found 1 duodenal and 2 jejunal AVMs that were ablated. Normal EGD. Pt cannot drink more Golytely. d/w daughter at length who when presented with options of either more golytely via NGT or mg citrate, has opted not to proceed with colonoscopy. d/w palliative care. PLAN: no colonoscopy Monitor H&H Packed RBC as needed supportive care GI will sign off. please reconsult if needed pt seen by myself and Dr Oconnell and this note is on his behalf (Christy Verdugo) Plan I personally talked to the patient's daughter, seen and examined the patient, no further workup per her daughter who is power of finance attorney, continue supportive care, currently given packed RBC as an outpatient when her hemoglobin , we'll sign off (Sandra Oconnell MD) Christy Verdugo Jan 18, 2018 13:11 Sandra Oconnell MD Jan 18, 2018 15:23
[2018-01-18] MEDS ORDERED: PEG (High)/E-LYTE SOLN 4000 ML BTL PO ONE (15:00)
[2018-01-18 16:00] VITALS: BP 130/60; PULSE 100; RESP 18; TEMP 97.3; O2SAT 95
--- NOTE | 2018-01-18 16:43 | HHI.PR ---
Subjective Remarks The patient was sitting in the chair. She was confused. She had no acute complaints. Discussed with nursing. Objective Vitals Vital Signs Date Time Temp Pulse Resp B/P (MAP) Pulse Ox O2 Delivery O2 Flow Rate FiO2 01/18/18 10:00 97.6 94 18 116/62 (80) 93 01/18/18 08:00 97.9 69 16 166/69 (101) 100 01/18/18 03:47 Nasal Cannula 2.00 01/18/18 00:35 97.7 88 18 120/80 (93) 98 01/17/18 20:30 98.3 103 19 147/61 (89) 98 01/17/18 18:23 16 I/O 01/17/18 01/17/18 01/17/18 01/18/18 01/18/18 01/18/18 07:00 15:00 23:00 07:00 15:00 23:00 Intake Total 0 ml 2360 ml 200 ml Output Total 400 ml 400 ml 425 ml Balance -400 ml -400 ml 1935 ml 200 ml Intake Oral 0 ml 2360 ml Other 200 ml Output Urine Total 400 ml 400 ml 425 ml # Bowel Movements 1 2 1 2 Result Diagram: 01/18/18 0556 01/15/18 1647 Imaging Last Impressions Lower Extremity CT 01/15/18 0000 Signed Impressions: Service Date/Time: Monday, January 15, 2018 19:38 - CONCLUSION: 1. No bony fracture is seen. 2. Large superficial hematoma in the lateral left upper thigh region. Hussein Byrne MD Chest X-Ray 01/15/18 0000 Signed Impressions: Service Date/Time: Monday, January 15, 2018 16:48 - CONCLUSION: 1. No acute cardiopulmonary process. 2. Lower left rib fracture. Hussein Byrne MD Hip X-Ray 01/13/18 0000 Signed Impressions: Service Date/Time: January 21:14 - CONCLUSION: 1. No acute fracture. 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 Aba Villegas MD Objective Remarks GENERAL: elderly female, in no apparent distress. CARDIOVASCULAR: Regular rate and regular rhythm without murmurs, gallops, or rubs. RESPIRATORY: Clear to auscultation. Breath sounds equal bilaterally. No wheezes , rales, or rhonchi. GASTROINTESTINAL: Abdomen soft, non-tender, nondistended. MUSCULOSKELETAL: Extremities without clubbing, cyanosis, or edema. NEURO: Awake, confused. Medications and IVs Current Medications Medications (Trade) Dose Ordered Sig/[place] Route Start Time Stop Time Status Last Admin Pantoprazole Sodium 80 mg/ Sodium Chloride 100 ml @ 10 mls/hr CONTINUOUS IV 01/14/18 07:45 01/16/18 23:00 (Lipitor) 10 mg HS PO 01/14/18 21:00 01/17/18 20:24 (Lanoxin) 0.125 mg DAILY PO 01/15/18 09:00 01/17/18 08:39 (Ferrous Sulfate) 325 mg DAILY PO 01/14/18 13:00 01/17/18 08:40 (Flovent Hfa 110 Mcg Inh) 2 puff BID INH 01/14/18 21:00 01/17/18 20:23 ([place] 5-325 Mg) 1 tab Q4H PRN PO 01/14/18 13:00 01/17/18 17:19 (Imdur) 30 mg DAILY PO 01/15/18 09:00 Future hold 01/16/18 11:01 (Isoptin Sr) 120 mg HS PO 01/14/18 21:00 Future Hold 01/14/18 20:20 (Spiriva Inh) 18 mcg DAILY INH 01/14/18 21:00 01/17/18 08:40 (Albuterol Neb) 1.25 mg Q2HR NEB PRN NEB 01/14/18 13:00 01/16/18 13:27 (Proair Hfa Inh) 2 puff QID INH 01/14/18 21:00 01/17/18 20:23 (Nitrostat Sl) 0.4 mg Q5M PRN SL 01/15/18 16:00 Future Hold 01/15/18 16:02 (Ativan Inj) 0.5 mg Q8H PRN IV 01/15/18 17:00 (Morphine Inj) 1 mg Q4H PRN IV 01/15/18 17:00 01/15/18 17:02 Lactated Ringer's 1,000 ml @ 30 mls/hr Q24H PRN IV 01/18/18 00:30 01/21/18 00:29 01/18/18 08:44 Sodium Chloride 500 ml @ 30 mls/hr [id number] PRN IV 01/18/18 00:30 4 00:29 (Betadine 5% Antisepsis Kit) 1 applic FINANCIAL CONTROLLER PRN EACH NARE 01/18/18 00:30 01/21/18 00:29 (Chlorhexidine 2% Cloth) 3 pack FINANCIAL CONTROLLER PRN TOPICAL 01/18/18 00:30 01/21/18 00:29 (Fleets Enema (Adult)) 133 ml ONCE ONCE RECTAL 01/19/18 06:00 01/19/18 06:01 A/P Problem List: (1) GI bleed ICD Code: K92.2 - Gastrointestinal hemorrhage, unspecified Status: Acute Assessment and Plan Acute on chronic anemia due to GI bleed Transfused with PRBC transfusion and H/H has improved. GI consult appreciated. EGD with AVMs noted. - family does not want to pursue colonoscopy. - follow up with palliative care. Recommendations appreciated. - PPI. - follow CBC and transfuse as needed. - PT. Fluid overload Stopped IV fluids- received a dose of Lasix. - jo cath in place- continue to monitor. Left hip pain XR with no acute fracture - CT of the left hip with superficial hematoma. - continue pain control/ fall precautions. Left rib fractures Stable. - continue pain control. COPD Stable. - resumed home meds- neb treatment as needed. Hypertension - hold Verapamil for now- continue to monitor. CAD - hold aspirin due to GI bleed- resumed imdur - DVT prophylaxis with SCD's- no chemical prophylaxis due to GI bleed. Discharge Planning Anticipate DC to SNF in 1-2 days Problem Qualifiers (1) GI bleed: Qualified Codes: K92.2 - Gastrointestinal hemorrhage, unspecified Duane Cotton DO Jan 18, 2018 16:43
[2018-01-18] MEDS: QUEtiapine FUMARATE 25 MG TAB PO SCH ×2 (18:29→20:25)
[2018-01-18 19:00] VITALS: BP 127/55; PULSE 99; RESP 16; TEMP 97.7; O2SAT 95
[2018-01-18] MEDS: ATORVASTATIN 10 MG TAB PO SCH (20:25)
[2018-01-18] MEDS: MORPHINE SULFATE 2 MG/ML SYRINGE IV PRN (20:26)
[2018-01-19] VITALS (7 sets, daily range): BP systolic 114–162; BP diastolic 56–74; PULSE 65–96; RESP 17–19; TEMP 97.4–98.2; O2SAT 93–100
[2018-01-19] MEDS ORDERED: SOD PHOSPHATE/SOD BIPHOSPHATE (ADULT) ENEMA 133ML RECTAL ONE (06:00)
[2018-01-19 08:01] LABS: HEMOGLOBIN 8.2 GM/DL (11.6-15.3); MEAN CELL VOLUME 93.4 FL (80.0-100.0); MEAN CORPUSCULAR HEMOGLOBIN 30.8 PG (27.0-34.0); MEAN PLATELET VOLUME 8.6 FL (7.0-11.0); PLATELET COUNT 177 TH/MM3 (150-450); RED BLOOD COUNT 2.67 MIL/MM3 (4.00-5.30); RED CELL DISTRIBUTION WIDTH 17.1 % (11.6-17.2)
[2018-01-19 08:16] LABS: BICARBONATE 28.4 MEQ/L (21.0-32.0); CREATININE 0.61 MG/DL (0.50-1.00); MAGNESIUM 1.9 MG/DL (1.5-2.5)
[2018-01-19] MEDS: DIGOXIN 0.125 MG TAB PO SCH (11:08)
[2018-01-19] MEDS: QUEtiapine FUMARATE 25 MG TAB PO SCH ×2 (11:08→21:12)
[2018-01-19] MEDS: ISOSORBIDE MONONITRATE 30 MG CR TAB (IMDUR) PO SCH (11:08)
[2018-01-19] MEDS: FERROUS SULFATE 325 MG (65 MG ELEMENTAL IRON) TAB PO SCH (11:08)
[2018-01-19] MEDS: ACETAMINOPHEN/HYDROcodone 325 MG/5 MG TAB PO PRN ×2 (11:08→18:25)
[2018-01-19] MEDS: ALBUTEROL SULFATE 90 MCG/ACT HFA 8 GM INHALER INH SCH ×4 (11:09→21:13)
[2018-01-19] MEDS: TIOTROPIUM BROMIDE 18 MCG INH INH SCH (11:09)
[2018-01-19] MEDS: FLUTICASONE PROPIONATE 110 MCG/ACT 12 GM INHALER INH SCH ×2 (11:09→21:13)
--- NOTE | 2018-01-19 15:16 | HHI.PR ---
Subjective Remarks The patient was resting comfortably in bed. No acute concerns from nursing. Objective Vitals Vital Signs Date Time Temp Pulse Resp B/P (MAP) Pulse Ox O2 Delivery O2 Flow Rate FiO2 01/19/18 11:30 97.8 80 19 162/71 (101) 97 01/19/18 10:07 93 Nasal Cannula 2.00 01/19/18 08:34 98.2 65 17 159/74 (102) 97 01/19/18 00:20 97.6 95 19 145/63 (90) 100 01/18/18 19:00 97.7 99 16 127/55 (79) 95 01/18/18 16:00 97.3 100 18 130/60 (83) 95 I/O 01/18/18 01/18/18 01/18/18 01/19/18 01/19/18 01/19/18 07:00 15:00 23:00 07:00 15:00 23:00 Intake Total 2360 ml 200 ml 480 ml 360 ml Output Total 425 ml 450 ml 650 ml Balance 1935 ml 200 ml 30 ml -290 ml Intake Oral 2360 ml 480 ml 360 ml Other 200 ml Output Urine Total 425 ml 450 ml 650 ml # Bowel Movements 2 2 0 Result Diagram: 01/19/18 0731 01/19/18 0731 Imaging Last Impressions Lower Extremity CT 01/15/18 0000 Signed Impressions: Service Date/Time: Monday, January 15, 2018 19:38 - CONCLUSION: 1. No bony fracture is seen. 2. Large superficial hematoma in the lateral left upper thigh region. Hussein Byrne MD Chest X-Ray 01/15/18 0000 Signed Impressions: Service Date/Time: Monday, January 15, 2018 16:48 - CONCLUSION: 1. No acute cardiopulmonary process. 2. Lower left rib fracture. Hussein Byrne MD Hip X-Ray 01/13/18 0000 Signed Impressions: Service Date/Time: January 21:14 - CONCLUSION: 1. No acute fracture. 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 Aba Villegas MD Objective Remarks GENERAL: Elderly female, in no apparent distress. HEENT: NC, AT. CARDIOVASCULAR: Regular rate and regular rhythm without murmurs, gallops or rubs. RESPIRATORY: Clear to auscultation. Breath sounds equal bilaterally. No wheezes , rales or rhonchi. GASTROINTESTINAL: Abdomen soft, non-tender, nondistended. MUSCULOSKELETAL: Extremities without clubbing, cyanosis, or edema. NEURO: Has dementia. PSYCH: Calm. Medications and IVs Current Medications Medications (Trade) Dose Ordered Sig/[place] Route Start Time Stop Time Status Last Admin Pantoprazole Sodium 80 mg/ Sodium Chloride 100 ml @ 10 mls/hr CONTINUOUS IV 01/14/18 07:45 01/16/18 23:00 (Lipitor) 10 mg HS PO 01/14/18 21:00 01/18/18 20:25 (Lanoxin) 0.125 mg DAILY PO 01/15/18 09:00 01/19/18 11:08 (Ferrous Sulfate) 325 mg DAILY PO 01/14/18 13:00 01/19/18 11:08 (Flovent Hfa 110 Mcg Inh) 2 puff BID INH 01/14/18 21:00 01/19/18 11:09 ([place] 5-325 Mg) 1 tab Q4H PRN PO 01/14/18 13:00 01/19/18 11:08 (Imdur) 30 mg DAILY PO 01/15/18 09:00 Future hold 01/19/18 11:08 (Isoptin Sr) 120 mg HS PO 01/14/18 21:00 Future Hold 01/14/18 20:20 (Spiriva Inh) 18 mcg DAILY INH 01/14/18 21:00 01/19/18 11:09 (Albuterol Neb) 1.25 mg Q2HR NEB PRN NEB 01/14/18 13:00 01/16/18 13:27 (Proair Hfa Inh) 2 puff QID INH 01/14/18 21:00 01/19/18 13:40 (Nitrostat Sl) 0.4 mg Q5M PRN SL 01/15/18 16:00 Future Hold 01/15/18 16:02 (Ativan Inj) 0.5 mg Q8H PRN IV 01/15/18 17:00 01/18/18 22:30 (Morphine Inj) 1 mg Q4H PRN IV 01/15/18 17:00 01/18/18 20:26 Lactated Ringer's 1,000 ml @ 30 mls/hr Q24H PRN IV 4/10/18 00:30 01/21/18 00:29 01/18/18 08:44 Sodium Chloride 500 ml @ 30 mls/hr [id number] PRN IV 01/18/18 00:30 01/21/18 00:29 (Betadine 5% Antisepsis Kit) 1 applic SHIRT MARKER PRN EACH NARE 01/18/18 00:30 01/21/18 00:29 (Chlorhexidine 2% Cloth) 3 pack SHIRT MARKER PRN TOPICAL 01/18/18 00:30 01/21/18 00:29 (SEROquel) 25 mg BID PO 01/18/18 18:00 01/19/18 11:08 A/P Problem List: (1) GI bleed ICD Code: K92.2 - Gastrointestinal hemorrhage, unspecified Status: Acute Assessment and Plan Acute on chronic anemia due to GI bleed Transfused with PRBC transfusion and H/H has improved. GI consult appreciated. EGD with AVMs noted. Hemoglobin has been trending down. - family does not want to pursue colonoscopy. - follow up with palliative care. Recommendations appreciated. - PPI. - follow CBC and transfuse as needed. - PT. Fluid overload Stopped IV fluids- received a dose of Lasix. - jo cath in place- continue to monitor. Left hip pain XR with no acute fracture - CT of the left hip with superficial hematoma. - continue pain control/ fall precautions. Left rib fractures Stable. - continue pain control. COPD Stable. - resumed home meds- neb treatment as needed. Hypertension Blood pressure slightly elevated. - hold Verapamil for now- continue to monitor. CAD No chest pain. - hold aspirin due to GI bleed. - resumed Imdur. DVT prophylaxis with SCD's- no chemical prophylaxis due to GI bleed Discharge Planning Anticipate DC to SNF in 1-2 days if Hgb remains stable Problem Qualifiers (1) GI bleed: Qualified Codes: K92.2 - Gastrointestinal hemorrhage, unspecified Duane Cotton DO Jan 19, 2018 15:16
[2018-01-19] MEDS: ATORVASTATIN 10 MG TAB PO SCH (21:13)
[2018-01-20] VITALS (8 sets, daily range): BP systolic 122–157; BP diastolic 61–70; PULSE 69–107; RESP 17–19; TEMP 97.4–98.8; O2SAT 95–99
[2018-01-20 10:12] LABS: HEMATOCRIT 23.6 % (35.0-46.0); HEMOGLOBIN 7.7 GM/DL (11.6-15.3); MEAN CELL VOLUME 90.2 FL (80.0-100.0); MEAN CORPUSCULAR HEMOGLOBIN 29.2 PG (27.0-34.0); MEAN CORPUSCULAR HGB CONC 32.4 % (32.0-36.0); PLATELET COUNT 188 TH/MM3 (150-450); RED BLOOD COUNT 2.62 MIL/MM3 (4.00-5.30); RED CELL DISTRIBUTION WIDTH 16.8 % (11.6-17.2); WHITE BLOOD COUNT 4.5 TH/MM3 (4.0-11.0)
[2018-01-20 10:15] LABS: BICARBONATE 27.6 MEQ/L (21.0-32.0); CREATININE 0.53 MG/DL (0.50-1.00); MAGNESIUM 1.9 MG/DL (1.5-2.5)
[2018-01-20] MEDS: DIGOXIN 0.125 MG TAB PO SCH (10:16)
[2018-01-20] MEDS: FERROUS SULFATE 325 MG (65 MG ELEMENTAL IRON) TAB PO SCH (10:16)
[2018-01-20] MEDS: ACETAMINOPHEN/HYDROcodone 325 MG/5 MG TAB PO PRN ×3 (10:16→20:42)
[2018-01-20] MEDS: ISOSORBIDE MONONITRATE 30 MG CR TAB (IMDUR) PO SCH (10:16)
[2018-01-20] MEDS: FLUTICASONE PROPIONATE 110 MCG/ACT 12 GM INHALER INH SCH ×2 (10:17→20:12)
[2018-01-20] MEDS: ALBUTEROL SULFATE 90 MCG/ACT HFA 8 GM INHALER INH SCH ×4 (10:17→20:12)
[2018-01-20] MEDS: TIOTROPIUM BROMIDE 18 MCG INH INH SCH (10:17)
[2018-01-20] MEDS: QUEtiapine FUMARATE 25 MG TAB PO SCH ×2 (10:17→20:12)
--- NOTE | 2018-01-20 10:46 | HHI.HCPN ---
Reason for visit a. To assist with evaluation and management of symptoms including: Pain, debility b. To assist medical decision maker(s) with: better understanding of current medical conditions; weighing benefits/burdens of medical treatment options; making medical treatment decisions. Subjective/Interval History Follow up visit medically necessary for further clarification of goals. Patient is sleeping, easily arousable. Alert, partially oriented with some confusion. Able to follow simple commands. Vital signs stable. Currently denies pain. Pain managed with Morphine Sulfate 1 mg q 4 hrs prn. Patient sparingly needing prn medications. Has only required x1 prn dose in the past +24 hrs. Last dose administered on 01/18/18. Physical therapy following with patient. Per yesterday`s PT report, patient only had passive range of motion and requires maximum assist for care. PT recommended PT at rehab. Laboratory workup today revealed WBC 4.5, hemoglobin 7.7(trending down), hematocrit 23.6, platelet count 188, potassium 3.5, BUN/creatinine 8/0.53. No family at bedside. Case discussed with bedside RN. Case management followed with patient. Met with patient`s daughter Wali [place]) at bedside at 1430hrs. Patient`s daughter would like to give patient one more chance of [facility]. Discussed patient`s physical deconditioning, multiple hospitalizations, persistent low hemoglobin, left upper thigh hematoma, lower left rib fracture and likely high probability of patient being unable to fully participate in rehabilitation. Reintroduced hospice philosophy and benefits. Patient`s daughter appears to understand and is accepting that patient may continue to decline and would like more information regarding hospice services. Informative hospice consult placed. . Family/friend interactions Met with patient`s daughter Wali [place]) at bedside at 1430hrs. Patient`s daughter would like to give patient one more chance of rehabilitation preferably at [facility] if [facility] would [facility] patient back. Discussed patient`s physical deconditioning, multiple hospitalizations, persistent low hemoglobin, left upper thigh hematoma, lower left rib fracture and likely high probability of patient being unable to fully participate in rehabilitation. Reintroduced hospice philosophy and benefits. Patient`s daughter appears to understand and is accepting that patient may continue to decline and would like more information regarding hospice services. Informative hospice consult placed. . Advance Directives Living Will: Copy in medical record Health Care Surrogate: Copy in medical record Durable Power of In[employer] Mdm Architect: Copy in medical record Advance Directive Specifics Date completed: August,. . Health Care Surrogate(s): Healthcare surrogate -Divya Keyes (Kiel) Hlwvnv-[phone] (work)/[phone] (cell) Alternate healthcare surrogate- Duane Dyson [phone] . Documented care wishes: Standard verbation- See copy in EMR . Objective Vital Signs Date Time Temp Pulse Resp B/P (MAP) Pulse Ox O2 Delivery O2 Flow Rate FiO2 01/20/18 08:03 98.0 69 19 139/66 (90) 99 01/20/18 04:00 97.8 77 17 132/65 (87) 97 01/20/18 00:00 97.9 93 19 122/61 (81) 95 01/19/18 20:57 97 Nasal Cannula 2.00 01/19/18 20:00 97.7 95 19 150/63 (92) 98 01/19/18 16:05 97.4 96 18 114/56 (75) 95 01/19/18 11:30 97.8 80 19 162/71 (101) 97 Intake & Output 01/20/18 01/20/18 07:00 19:00 Intake Total 120 ml Output Total 530 ml Balance -410 ml Intake Oral 120 ml Output Urine Total 530 ml # Bowel Movements 0 Physical Exam CONSTITUTIONAL/GENERAL: This is an elderly, cachectic patient, sleeping in no apparent distress. TUBES/LINES/DRAINS: Kulkarni catheter, PIV SKIN: No jaundice, rashes, or lesions. Ecchymoses on upper extremities. No wounds seen anteriorly. Skin temperature appropriate. Not diaphoretic. HEAD: Atraumatic. Normocephalic. EYES: Pupils equal and round and reactive. Extraocular motions intact. No scleral icterus. No injection or drainage. Fundi not examined. ENT: Hearing grossly normal. Nose without bleeding or purulent drainage. Moist oral mucosa. NECK: Trachea midline. Supple, nontender. CARDIOVASCULAR: Irregular heart rate and rhythm without murmurs, gallops, or rubs. No JVD. Peripheral pulses symmetric. RESPIRATORY/CHEST: Symmetric, unlabored respirations. Rhonchi to auscultation. Breath sounds equal bilaterally. No wheezes. GASTROINTESTINAL: Abdomen soft, non-tender, nondistended. No guarding. Bowel sounds present. GENITOURINARY: Without palpable bladder distension. Kulkarni catheter in place. MUSCULOSKELETAL: Extremities without clubbing, cyanosis, or edema. No joint tenderness or effusion noted. No calf tenderness. No mottling or clubbing. NEUROLOGICAL:Sleeping, arousable- alert and partially oriented. Speech clear. Motor and sensory grossly within normal limits. Follows commands. Moves all extremities. PSYCHIATRIC: No obvious anxiety/depression. no apparent hallucinations or other psychotic thought process. Diagnostic Tests Laboratory Laboratory Tests Test 01/18/18 05:56 01/19/18 07:31 01/20/18 08:39 White Blood Count 5.7 TH/MM3 (4.0-11.0) 4.0 TH/MM3 (4.0-11.0) 4.5 TH/MM3 (4.0-11.0) Red Blood Count 2.85 MIL/MM3 (4.00-5.30) 2.67 MIL/MM3 (4.00-5.30) 2.62 MIL/MM3 (4.00-5.30) Hemoglobin 9.0 GM/DL (11.6-15.3) 8.2 GM/DL (11.6-15.3) 7.7 GM/DL (11.6-15.3) Hematocrit 26.5 % (35.0-46.0) 25.0 % (35.0-46.0) 23.6 % (35.0-46.0) Mean Corpuscular Volume 93.1 FL (80.0-100.0) 93.4 FL (80.0-100.0) 90.2 FL (80.0-100.0) Mean Corpuscular Hemoglobin 31.4 PG (27.0-34.0) 30.8 PG (27.0-34.0) 29.2 PG (27.0-34.0) Mean Corpuscular Hemoglobin Concent 33.7 % (32.0-36.0) 33.0 % (32.0-36.0) 32.4 % (32.0-36.0) Red Cell Distribution Width 17.3 % (11.6-17.2) 17.1 % (11.6-17.2) 16.8 % (11.6-17.2) Platelet Count 184 TH/MM3 (150-450) 177 TH/MM3 (150-450) 188 TH/MM3 (150-450) Mean Platelet Volume 9.0 FL (7.0-11.0) 8.6 FL (7.0-11.0) 9.0 FL (7.0-11.0) Neutrophils (%) (Auto) 62.4 % (16.0-70.0) Lymphocytes (%) (Auto) 27.0 % (9.0-44.0) Monocytes (%) (Auto) 9.0 % (0.0-8.0) Eosinophils (%) (Auto) 1.1 % (0.0-4.0) Basophils (%) (Auto) 0.5 % (0.0-2.0) Neutrophils # (Auto) 3.6 TH/MM3 (1.8-7.7) Lymphocytes # (Auto) 1.5 TH/MM3 (1.0-4.8) Monocytes # (Auto) 0.5 TH/MM3 (0-0.9) Eosinophils # (Auto) 0.1 TH/MM3 (0-0.4) Basophils # (Auto) 0.0 TH/MM3 (0-0.2) CBC Comment DIFF FINAL Differential Comment Blood Urea Nitrogen 6 MG/DL (7-18) 8 MG/DL (7-18) Creatinine 0.61 MG/DL (0.50-1.00) 0.53 MG/DL (0.50-1.00) Random Glucose 87 MG/DL (74-106) 86 MG/DL (74-106) Calcium Level 8.0 MG/DL (8.5-10.1) 8.0 MG/DL (8.5-10.1) Magnesium Level 1.9 MG/DL (1.5-2.5) 1.9 MG/DL (1.5-2.5) Sodium Level 146 MEQ/L (136-145) 143 MEQ/L (136-145) Potassium Level 3.8 MEQ/L (3.5-5.1) 3.5 MEQ/L (3.5-5.1) Chloride Level 110 MEQ/L (98-107) 109 MEQ/L (98-107) Carbon Dioxide Level 28.4 MEQ/L (21.0-32.0) 27.6 MEQ/L (21.0-32.0) Anion Gap 8 MEQ/L (5-15) 6 MEQ/L (5-15) Estimat Glomerular Filtration Rate 93 ML/MIN (>89) 110 ML/MIN (>89) Hematology Comments Result Diagram: 01/20/18 0839 01/20/18 0839 Procedures 01/18/2018- Enteroscopy . Assessment and Plan Disease Oriented Problem List: (1) GI bleed (2) Severe anemia (3) History of colon cancer Symptom Scale: (1) Pain 0-10 Scale: Unable to quantify (2) Debility 0-10 Scale: Unable to quantify Comment: Progressive . Pertinent Non-Medical Issues Psychosocial:Patient is originally from [place]. Patient's was in the and she lived in different states and out of [facility] inclusive of [place], and [place]. 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 Patient's in 2004. She had 3 adult children, 2 sons who are and one daughter living. Spiritual: Patient is a [employer]. Patient`s daughter does not wish to have visit from ortho/prosthetic aide Legal: Patient has a living will, and healthcare surrogate Ethical issues impacting care: None identified at this time . Important Contacts Healthcare surrogate -Divya Coates) [phone] (work)/ (cell) Alternate healthcare surrogate- Duane Dyson [phone] . Prognosis Mrs. Dyson is a 82-year-old with a past medical history significant of anemia, colon cancer, dementia, CAD, atrial fibrillation, CVA, hyperlipidemia, COPD and GERD. Patient was brought into the ER on 01/13/18 for further evaluation of a hemoglobin of 7.6, and left hip pain. Diagnostic colonoscopy is planned. Given ongoing comorbidities, patient is at risk for further complications, deterioration and decline. . Code Status: No Code Plan PLAN: Legal decision maker: Patient has history of dementia and has been deemed not able to make her own medical decisions. Patient`s daughter Divya Meadows ( [place]) is the healthcare surrogate and the alternate health care surrogate is Duane Dyson. Goals: Aggressive short of no code CODE STATUS: No code DNR/DNI- [facility] DNR signed, placed on chart. Met with patient`s daughter Wali (DPOA) at bedside at 1430hrs. Patient`s daughter would like to give patient one more chance of rehabilitation [facility] would [facility] patient [facility]. Discussed patient`s physical deconditioning, multiple hospitalizations, persistent low hemoglobin, left upper thigh hematoma, lower left rib fracture and likely high probability of patient being unable to fully participate in rehabilitation. Reintroduced hospice philosophy and benefits. Patient`s daughter appears to understand and is accepting that patient may continue to decline and would like more information regarding hospice services. Informative hospice consult placed. SYMPTOMS: * Pain: Patient has been complaining of abdominal pain. Patient not showing signs of pain and discomfort. Morphine [id number] prn available. No recommendations at this time * Debility: Progressive. Patient has been in the hospital and rehabilitation since November this year and is now requiring assistance with most of the ADLs. Patient has been in rehabilitation prior to this admission. Physical therapy consulted and recommending PT and rehab. No recommendations. Palliative care will continue to follow the patient during hospital course as condition evolves, to assist patient/decision-maker with understanding of their medical conditions, weighing benefits/burdens of treatment options, for clarification of goals of treatment. Additionally will assist with any symptoms of palliative concern Attestation To help prompt me to consider important information that might be impacting today's encounter and assessment, information from prior notes written by myself or my colleagues may have been "brought forward" into today's note. My signature on this note, however, is an attestation that I personally performed the exam, history, and/or decision-making noted today, and, unless otherwise indicated, the interactions with patient, family, and staff as well as the review of records all occurred today. I also attest that the listed assessment and stated plan reflect my best clinical judgment today based on the combination of historical information, prior notes, and today's exam/ interactions. When time spent is documented, it refers only to time spent today by the signer, or if indicated, combined time spent today by collaborating physician/nurse practitioner. Nelly Flores Jan 20, 2018 10:46
[2018-01-20] MEDS ORDERED: POTASSIUM CHLORIDE 25 MEQ EFFERVESCENT TAB PO ONE (13:45)
--- NOTE | 2018-01-20 14:18 | HHI.PR ---
Subjective Remarks The pt was resting in bed. Her daughter was at the bedside. She states that the pt has been requiring transfusions regularly. She is unsure of where the pt will be discharged to. The pt has been eating well. Discussed with nursing. Objective Vitals Vital Signs Date Time Temp Pulse Resp B/P (MAP) Pulse Ox O2 Delivery O2 Flow Rate FiO2 01/20/18 11:39 97.8 89 18 149/67 (94) 95 01/20/18 10:42 99 Nasal Cannula 2.00 01/20/18 08:03 98.0 69 19 139/66 (90) 99 01/20/18 04:00 97.8 77 17 132/65 (87) 97 01/20/18 00:00 97.9 93 19 122/61 (81) 95 01/19/18 20:57 97 Nasal Cannula 2.00 01/19/18 20:00 97.7 95 19 150/63 (92) 98 01/19/18 16:05 97.4 96 18 114/56 (75) 95 I/O 01/19/18 01/19/18 01/19/18 01/20/18 01/20/18 01/20/18 07:00 15:00 23:00 07:00 15:00 23:00 Intake Total 360 ml 350 ml 120 ml 120 ml Output Total 650 ml 380 ml 530 ml Balance -290 ml -30 ml 120 ml -410 ml Intake Oral 360 ml 350 ml 120 ml 120 ml Output Urine Total 650 ml 380 ml 530 ml # Bowel Movements 0 0 Result Diagram: 01/20/18 0839 01/20/18 0839 Imaging Last Impressions Lower Extremity CT 01/15/18 0000 Signed Impressions: Service Date/Time: Monday, January 15, 2018 19:38 - CONCLUSION: 1. No bony fracture is seen. 2. Large superficial hematoma in the lateral left upper thigh region. Hussein Byrne MD Chest X-Ray 01/15/18 0000 Signed Impressions: Service Date/Time: Monday, January 15, 2018 16:48 - CONCLUSION: 1. No acute cardiopulmonary process. 2. Lower left rib fracture. Hussein Byrne MD Hip X-Ray 01/13/18 0000 Signed Impressions: Service Date/Time: January 21:14 - CONCLUSION: 1. No acute fracture. 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 Aba Villegas MD Objective Remarks GENERAL: Elderly female, in no apparent distress. HEENT: NC, AT. CARDIOVASCULAR: Regular rate and regular rhythm without murmurs, gallops or rubs. RESPIRATORY: Clear to auscultation. Breath sounds equal bilaterally. No wheezes , rales or rhonchi. GASTROINTESTINAL: Abdomen soft, non-tender, nondistended. MUSCULOSKELETAL: Extremities without clubbing, cyanosis, or edema. NEURO: Has dementia. PSYCH: Calm. Medications and IVs Current Medications Medications (Trade) Dose Ordered Sig/[place] Route Start Time Stop Time Status Last Admin Pantoprazole Sodium 80 mg/ Sodium Chloride 100 ml @ 10 mls/hr CONTINUOUS IV 01/14/18 07:45 01/16/18 23:00 (Lipitor) 10 mg HS PO 01/14/18 21:00 01/19/18 21:13 (Lanoxin) 0.125 mg DAILY PO 01/15/18 09:00 01/20/18 10:16 (Ferrous Sulfate) 325 mg DAILY PO 01/14/18 13:00 01/20/18 10:16 (Flovent Hfa 110 Mcg Inh) 2 puff BID INH 01/14/18 21:00 01/20/18 10:17 ([place] 5-325 Mg) 1 tab Q4H PRN PO 01/14/18 13:00 01/20/18 10:16 (Imdur) 30 mg DAILY PO 01/15/18 09:00 Future hold 01/20/18 10:16 (Isoptin Sr) 120 mg HS PO 01/14/18 21:00 Future Hold 01/14/18 20:20 (Spiriva Inh) 18 mcg DAILY INH 01/14/18 21:00 01/20/18 10:17 (Albuterol Neb) 1.25 mg Q2HR NEB PRN NEB 01/14/18 13:00 01/16/18 13:27 (Proair Hfa Inh) 2 puff QID INH 01/14/18 21:00 01/20/18 13:05 (Nitrostat Sl) 0.4 mg Q5M PRN SL 01/15/18 16:00 Future Hold 01/15/18 16:02 (Ativan Inj) 0.5 mg Q8H PRN IV 4/7/18 17:00 01/18/18 22:30 (Morphine Inj) 1 mg Q4H PRN IV 01/15/18 17:00 01/18/18 20:26 Lactated Ringer's 1,000 ml @ 30 mls/hr Q24H PRN IV 01/18/18 00:30 01/21/18 00:29 01/18/18 08:44 Sodium Chloride 500 ml @ 30 mls/hr [id number] PRN IV 01/18/18 00:30 01/21/18 00:29 (Betadine 5% Antisepsis Kit) 1 applic WILDLIFE PHOTOGRAPHER PRN EACH NARE 01/18/18 00:30 01/21/18 00:29 (Chlorhexidine 2% Cloth) 3 pack WILDLIFE PHOTOGRAPHER PRN TOPICAL 01/18/18 00:30 01/21/18 00:29 (SEROquel) 25 mg BID PO 01/18/18 18:00 01/20/18 10:17 A/P Problem List: (1) GI bleed ICD Code: K92.2 - Gastrointestinal hemorrhage, unspecified Status: Acute Assessment and Plan Acute on chronic anemia due to GI bleed Transfused with PRBC transfusion and H/H has improved. GI consult appreciated. EGD with AVMs noted. Hemoglobin has been trending down. - family does not want to pursue colonoscopy at this time. - follow up with palliative care. Recommendations appreciated. Consider hospice. - PPI. - follow CBC and transfuse as needed. - PT. Fluid overload Stopped IV fluids- received a dose of Lasix. - Kulkarni cath in place- continue to monitor. Left hip pain XR with no acute fracture - CT of the left hip with superficial hematoma. - continue pain control/ fall precautions. Left rib fractures Stable. - continue pain control. COPD Stable. - resumed home meds. - Duonebs BID and as needed. Hypertension Blood pressure slightly elevated. - hold Verapamil for now- continue to monitor. CAD No chest pain. - hold aspirin due to GI bleed. - resumed Imdur. DVT prophylaxis with SCD's- no chemical prophylaxis due to GI bleed Discharge Planning Anticipate DC to SNF in 1-2 days if Hgb remains stable and if placement found Problem Qualifiers (1) GI bleed: Qualified Codes: K92.2 - Gastrointestinal hemorrhage, unspecified Duane Cotton DO Jan 20, 2018 14:18
[2018-01-20] MEDS: RESP: ALBUTEROL 1.25 MG/3 ML NEB (PRN) NEB (15:28)
--- NOTE | 2018-01-20 18:38 | RADRPT ---
EXAM DATE/TIME: 01/20/2018 17:45 [facility] COMPARISON: HIP RIGHT (AP&LAT 2/3VWS) W AP PELVIS, November 25, 2017, 3:06. INDICATIONS : Right hip pain, unknown injury, possible fall. MEDICAL HISTORY : None. SURGICAL HISTORY : None. ENCOUNTER: Initial ACUITY: 1 day PAIN SCORE: 10/10 LOCATION: Right hip. FINDINGS: AP and frog-leg lateral views of the right hip were clean and demonstrated that the patient is status post right hip arthroplasty. The femoral and acetabular components are intact and in normal alignmen t. There is no evidence of fracture. There is lateral soft tissue swelling. CONCLUSION: 1. Status post right hip arthroplasty. 2. Lateral soft tissue swelling with no acute fracture or malalignment. Duane Khanna MD on January 20, 2018 at 18:34 Board Certified Radiologist. This report was verified electronically.
[2018-01-20] MEDS: ATORVASTATIN 10 MG TAB PO SCH (20:12)
[2018-01-20] MEDS: PANTOPRAZOLE SOD 40 MG DELAYED RELEASE TAB PO SCH (20:12)
[2018-01-20] MEDS: RESP: ALBUTEROL 2.5 MG/IPRATROPIUM 0.5 MG NEB (SCH) NEB (20:19)
[2018-01-21] VITALS: BP 167/78; PULSE 103; RESP 20; TEMP 98; O2SAT 95
[2018-01-21 03:51] VITALS: BP 148/92; PULSE 109; RESP 18; TEMP 98.5; O2SAT 98
[2018-01-21 08:00] VITALS: BP 151/70; PULSE 97; RESP 18; TEMP 98.4; O2SAT 18
[2018-01-21 08:22] LABS: HEMATOCRIT 23.6 % (35.0-46.0); HEMOGLOBIN 7.8 GM/DL (11.6-15.3); MEAN CORPUSCULAR HEMOGLOBIN 30.2 PG (27.0-34.0); MEAN CORPUSCULAR HGB CONC 32.8 % (32.0-36.0); MEAN PLATELET VOLUME 8.4 FL (7.0-11.0); PLATELET COUNT 189 TH/MM3 (150-450); RED BLOOD COUNT 2.57 MIL/MM3 (4.00-5.30); RED CELL DISTRIBUTION WIDTH 17.2 % (11.6-17.2); WHITE BLOOD COUNT 4.2 TH/MM3 (4.0-11.0)
[2018-01-21] MEDS: RESP: ALBUTEROL 2.5 MG/IPRATROPIUM 0.5 MG NEB (SCH) NEB (08:56)
[2018-01-21 08:57] VITALS: O2SAT 98
[2018-01-21 09:32] VITALS: O2SAT 96
[2018-01-21] MEDS: PANTOPRAZOLE SOD 40 MG DELAYED RELEASE TAB PO SCH (09:41)
[2018-01-21] MEDS: FERROUS SULFATE 325 MG (65 MG ELEMENTAL IRON) TAB PO SCH (09:41)
[2018-01-21] MEDS: QUEtiapine FUMARATE 25 MG TAB PO SCH (09:42)
[2018-01-21] MEDS: FLUTICASONE PROPIONATE 110 MCG/ACT 12 GM INHALER INH SCH (09:42)
[2018-01-21] MEDS: TIOTROPIUM BROMIDE 18 MCG INH INH SCH (09:42)
[2018-01-21] MEDS: ISOSORBIDE MONONITRATE 30 MG CR TAB (IMDUR) PO SCH (09:42)
[2018-01-21] MEDS: ALBUTEROL SULFATE 90 MCG/ACT HFA 8 GM INHALER INH SCH ×2 (09:42→14:09)
[2018-01-21] MEDS: DIGOXIN 0.125 MG TAB PO SCH (09:42)
[2018-01-21] MEDS: ACETAMINOPHEN/HYDROcodone 325 MG/5 MG TAB PO PRN (10:56)
[2018-01-21 12:00] VITALS: BP 125/64; PULSE 112; RESP 18; TEMP 97.8; O2SAT 96
--- NOTE | 2018-01-21 12:11 | HHI.DCPOC ---
Discharge Care Plan Diagnosis: (1) Severe anemia (2) GI bleed (3) HTN (hypertension) (4) COPD (chronic obstructive pulmonary disease) Goals to Promote Your Health * To prevent worsening of your condition and complications * To maintain your health at the optimal level Directions to Meet Your Goals Take your medications as prescribed Follow your dietary instruction Follow activity as directed Keep your appointments as scheduled Take your immunizations and boosters as scheduled If your symptoms worsen call your PCP, if no PCP go to Urgent Care Center or Emergency Room Smoking is Dangerous to Your Health. Avoid second hand smoke Call the 24-hour hour crisis hotline for domestic abuse at Duane Cotton DO Jan 21, 2018 12:11
--- NOTE | 2018-01-21 12:15 | HHI.DS ---
Discharge Summary Admission Date Jan 14, 2018 at 08:26 Discharge Date: Jan 21, 2018 Admitting Diagnosis GI bleed. Severe anemia. (1) GI bleed ICD Code: K92.2 - Gastrointestinal hemorrhage, unspecified Diagnosis: Principal Status: Acute (2) Severe anemia ICD Code: D64.9 - Anemia, unspecified Status: Acute (3) COPD (chronic obstructive pulmonary disease) ICD Code: J44.9 - Chronic obstructive pulmonary disease, unspecified Status: Chronic (4) HTN (hypertension) ICD Code: I10 - Essential (primary) hypertension Status: Chronic Procedures EGD Brief History - From Admission patient is a 82 y/o female with history of dementia,CAD, CVA, anemia who was sent to ER with worsening anemia. she was admitted to this hospital for anemia last month. she was evaluated by GI last admission but POA declined the GI work- up. she was discharged after blood transfusion. per ER record she had a fall in correction last night after which she started to have some pain to the left hip. however she had a blood work done and when she was found to have worsening anemia she was sent back to ER. information was limited due to the patient being demented. however she was in no acute distress at the time of my evaluation and denied pain. CBC/BMP: 01/21/18 0727 01/20/18 0839 Significant Findings Laboratory Tests Test 01/19/18 07:31 01/20/18 08:39 01/21/18 07:27 Red Blood Count 2.67 MIL/MM3 (4.00-5.30) 2.62 MIL/MM3 (4.00-5.30) 2.57 MIL/MM3 (4.00-5.30) Hemoglobin 8.2 GM/DL (11.6-15.3) 7.7 GM/DL (11.6-15.3) 7.8 GM/DL (11.6-15.3) Hematocrit 25.0 % (35.0-46.0) 23.6 % (35.0-46.0) 23.6 % (35.0-46.0) Blood Urea Nitrogen 6 MG/DL (7-18) Calcium Level 8.0 MG/DL (8.5-10.1) 8.0 MG/DL (8.5-10.1) Sodium Level 146 MEQ/L (136-145) Chloride Level 110 MEQ/L (98-107) 109 MEQ/L (98-107) Imaging Last Impressions Hip and Pelvis X-Ray 01/20/18 0000 Signed Impressions: Service Date/Time: January 17:45 - CONCLUSION: 1. Status post right hip arthroplasty. 2. Lateral soft tissue swelling with no acute fracture or malalignment. Duane Khanna MD Lower Extremity CT 01/15/18 0000 Signed Impressions: Service Date/Time: Monday, January 15, 2018 19:38 - CONCLUSION: 1. No bony fracture is seen. 2. Large superficial hematoma in the lateral left upper thigh region. Hussein Byrne MD Chest X-Ray 01/15/18 0000 Signed Impressions: Service Date/Time: Monday, January 15, 2018 16:48 - CONCLUSION: 1. No acute cardiopulmonary process. 2. Lower left rib fracture. Hussein Byrne MD Hip X-Ray 01/13/18 0000 Signed Impressions: Service Date/Time: January 21:14 - CONCLUSION: 1. No acute fracture. 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 Aba Villegas MD PE at Discharge GENERAL: Elderly female, in no apparent distress. HEENT: NC, AT. CARDIOVASCULAR: Regular rate and regular rhythm without murmurs, gallops or rubs. RESPIRATORY: Clear to auscultation. Breath sounds equal bilaterally. No wheezes , rales or rhonchi. GASTROINTESTINAL: Abdomen soft, non-tender, nondistended. MUSCULOSKELETAL: Extremities without clubbing, cyanosis, or edema. NEURO: Has dementia. PSYCH: Calm. Pt update on day of discharge The patient seemed to be complaining of pain in her left lower extremity. Her daughter was at the bedside. They have agreed with hospice care. Discussed with nursing. Hospital Course Acute on chronic anemia due to GI bleed The patient received 2 units of packed red cells. GI was consulted. EGD revealed AVMs. Family did not not want to pursue colonoscopy at this time. Palliative care was consulted. The pt was continued on a PPI and we followed her CBC. She worked with PT. Hospice was consulted and the pt will be discharged to the care center. Fluid overload Stopped IV fluids and the pt received a dose of Lasix. A Kulkarni catheter was placed. Left hip pain XR with no acute fracture. CT of the left hip with superficial hematoma. The pt was continued on pain control/ fall precautions. She worked with PT. Left rib fractures The pt received pain control as needed. COPD We resumed the pt's home meds. We ordered Duonebs BID and as needed. Hypertension Blood pressure has been slightly elevated. Will resume the pt's home verapamil. CAD No chest pain. ASA on hold s/t GIB. Resumed Imdur. Pt Condition on Discharge: Stable Discharge Disposition: Hospice/Med Facility Discharge Time: > 30 minutes Discharge Instructions DIET: Follow Instructions for: As Tolerated, No Restrictions Activities you can perform: See Additionl Instruction Follow up Referrals: Pulmonology - 2 Weeks with Tavares Ornelas MD Continued Medications: Acetaminophen (Tylenol) 325 Mg Tab 650 MG PO Q6H PRN for PAIN SCALE 1 TO 5, TAB 0 Refills Bisacodyl Supp (Dulcolax Supp) 10 Mg Supp 10 MG RECTAL DAILY PRN for CONSTIPATION, SUPP 0 Refills Bisacodyl Supp (Dulcolax Supp) 10 Mg Supp 10 MG RECTAL DAILY PRN for CONSTIPATION, #12 SUPP 0 Refills Digoxin (Digoxin) 0.125 Mg Tab 0.125 MG PO DAILY for Regulate Heart Beat, #30 TAB 0 Refills Ferrous Sulfate (Feosol) 325 Mg (65 Mg Iron) Tab 1 TAB PO BID for Nutritional Supplement, #30 TAB 0 Refills Fluticasone 12 GM Inh (Flovent Hfa 12 GM Inh) 110 Mcg/Act Inh 2 PUFF INH BID for Asthma Management, #1 INHALER 0 Refills Ipratropium-Albuterol Inh (Combivent Respimat Inh) 20-100 Jail/Act Aero 2 PUFF INH BID for Asthma Management, #1 INHALER 0 Refills Ipratropium-Albuterol Inh (Combivent Respimat Inh) 20-100 Jail/Act Aero 2 PUFF INH QID for Asthma Management, #1 INHALER 0 Refills Ipratropium-Albuterol Neb (Duoneb) 0.5-2.5 Mg/3 Ml Neb 1 NEBULE INH BID for Breathing Treatment, #120 NEBULE 0 Refills Isosorbide Mononitrate ER (Isosorbide Mononitrate ER) 30 Mg Deisy 30 MG PO DAILY for Prevent Chest Pain, #30 TAB 0 Refills Magnesium Hydroxide Liq (Milk of Magnesia Liq) 400 Mg/5 Ml Susp 30 ML PO Q6H PRN for CONSTIPATION, #1 BOTTLE 0 Refills Nitroglycerin SL (Nitrostat SL) 0.4 Mg Subl 0.4 MG SL DIRECTED PRN for CHEST PAIN, #100 TAB.SL 0 Refills 1 tablet under the tongue as needed for chest pain. Repeat every 5 minutes for a total of 3 DOSES or call 911 if NO relief. Polyethylene Glycol 3350 Powder (Polyethylene Glycol 3350 Powder) 17 Gram Pow 17 GM PO BID for Constipation, #1 BOTTLE 0 Refills Verapamil ER 24 HR (Verapamil ER 24 HR) 240 Mg Tab 120 MG PO HS, #30 TAB 0 Refills Discontinued Medications: Ascorbic Acid (Ascorbic Acid) 500 Mg Tab 500 MG PO BID, TAB Aspirin DR (Aspirin EC) 81 Mg Tabdr 81 MG PO DAILY, TAB 0 Refills Atorvastatin (Atorvastatin) 10 Mg Tab 10 MG PO HS for Cholesterol Management, #30 TAB 0 Refills Candesartan (Atacand) 16 Mg Tab 16 MG PO DAILY for Blood Pressure Management, #60 TAB 0 Refills Folic Acid (Folic Acid) 0.8 Mg Tab 800 MCG PO DAILY for Nutritional Supplement, TAB 0 Refills Furosemide (Furosemide) 20 Mg Tab 20 MG PO BID, TAB 0 Refills Hydrocodone/Acetaminophen (Hydrocodone-Acetamin 5-325 mg) 5 Mg-325 Mg Tablet 1 TAB PO Q4H PRN for PAIN, #40 TAB Lactobacillus Acidophilus (Lactinex) 1 Chew 1 TAB CHEW DAILY for Nutritional Supplement, #30 TAB 0 Refills Magnesium Citrate Liq (Citroma Liq) 300 Ml Liq 300 ML PO ONCE for Constipation, #1 BOTTLE 0 Refills Multiple Vitamins W/ Minerals (Thera-M) 1 Tab 1 TAB PO DAILT for Nutritional Supplement, TAB 0 Refills Potassium Chloride ER (Potassium Chloride ER) 10 Meq Cap 10 MEQ PO BID for Electrolyte Replacement, #60 CAP 0 Refills Sodium Phosphates Rectal (Fleet Pediatric Rectal) 3.5-9.5 Gm/66 Ml Enem 66 ML RECTAL DAILY PRN for CONSTIPATION, BOTTLE 0 Refills Duane Cotton DO Jan 21, 2018 12:15
[2018-01-21] MEDS ORDERED: ACETAMINOPHEN/HYDROcodone 325 MG/5 MG TAB PO ONE (12:45)
== END 2018-01-21 15:50 | disposition hospice, inpatient (51) | DRG 378 ==
LOC: NEPE 20:19 → NEDA 01-14 08:26 → N06B 01-14 12:01 → N06A 01-18 20:05
PROVIDERS: ADMIT Hospitalist; ATTEND Hospitalist
PROC: 30233N1 Transfusion of Nonautologous Red Blood Cells into Peripheral Vein, Percutaneous Approach (ICD-10-PCS; principal; 2018-01-14)
PROC: 0W3P8ZZ Control Bleeding in Gastrointestinal Tract, Via Natural or Artificial Opening Endoscopic (ICD-10-PCS; 2018-01-18)
PROC: 0D758ZZ Dilation of Esophagus, Via Natural or Artificial Opening Endoscopic (ICD-10-PCS; 2018-01-18)
PROC: 0DJD8ZZ Inspection of Lower Intestinal Tract, Via Natural or Artificial Opening Endoscopic (ICD-10-PCS; 2018-01-18 09:17)
DX: K31.811 Angiodysplasia of stomach and duodenum with bleeding (principal); D62 Acute posthemorrhagic anemia; R64 Cachexia; I95.9 Hypotension, unspecified; S22.42XA Multiple fractures of ribs, left side, initial encounter for closed fracture; F03.90 Unspecified dementia, unspecified severity, without behavioral disturbance, psychotic disturbance, mood disturbance, and anxiety; E87.70 Fluid overload, unspecified; I48.91 Unspecified atrial fibrillation; J44.9 Chronic obstructive pulmonary disease, unspecified; I10 Essential (primary) hypertension; S70.10XA Contusion of unspecified thigh, initial encounter; E78.5 Hyperlipidemia, unspecified; K22.2 Esophageal obstruction; I25.10 Atherosclerotic heart disease of native coronary artery without angina pectoris; K21.9 Gastro-esophageal reflux disease without esophagitis; F32.9 Major depressive disorder, single episode, unspecified; W05.0XXA Fall from non-moving wheelchair, initial encounter; Y92.129 Unspecified place in nursing home as the place of occurrence of the external cause; Z51.5 Encounter for palliative care; Z66 Do not resuscitate; Z68.20 Body mass index [BMI] 20.0-20.9, adult; Z85.038 Personal history of other malignant neoplasm of large intestine; Z86.73 Personal history of transient ischemic attack (TIA), and cerebral infarction without residual deficits; Z88.1 Allergy status to other antibiotic agents; Z96.641 Presence of right artificial hip joint
CPT/HCPCS: 36430; 36600; 71045; 73502; 73700; 80048; 80053; 80162; 81001; 82550; 82805; 82948; 83735; 84484; 85014; 85018; 85025; 85027; 85610; 86850; 86900; 86901; 86902; 86920; 86922; 93005; 94640; 94664; 96365; 96375; C1769; C9113; J1940; J2060; J2270; J2370; J7030; J7120; J7613; P9016